=== PATIENT | female | born 1965 ===

== ENCOUNTER 2017-06-23 16:05 | Inpatient (IN) | payer BC ==
[2017-06-23] MEDS ORDERED: Iohexol 240 (50 ml) PO STA (16:29)
[2017-06-23] MEDS ORDERED: Lactated Ringer's 1,000 ML IVB STA (16:31)
[2017-06-23 17:17] LABS: BASO % 0.4 % (0.0-2.0); EOS % 0.5 % (0.0-4.0); HEMATOCRIT 41.2 % (34.0-47.0); LYMPH # 2.1 K/uL (1.0-4.3); LYMPH % 28.5 % (20.0-40.0); MEAN CELL VOLUME 90.3 fL (81.0-99.0); MEAN CORPUSCULAR HEMOGLOBIN 30.5 pg (27.0-31.0); MEAN CORPUSCULAR HGB CONC 33.8 g/dL (33.0-37.0); MEAN PLATELET VOLUME 7.5 fL (7.2-11.7); MONO # 0.4 K/uL (0.0-0.8); MONO % 5.2 % (0.0-10.0); NRBC % 0.1 % (0.0-2.0); RED CELL DISTRIBUTION WIDTH 14.3 % (11.5-14.5); WHITE BLOOD COUNT 7.5 K/uL (4.8-10.8)
[2017-06-23] MEDS ORDERED: Morphine 4 MG/ML VIAL ONE (17:24)
[2017-06-23] MEDS ORDERED: Lactated Ringer's 1,000 ML ONE (17:24)
[2017-06-23 17:29] LABS: INR 1.1
[2017-06-23 17:30] LABS: ALKALINE PHOSPHATASE 78 U/L (38-126); ALT/SGPT 49 U/L (9-52); AST/SGOT 29 U/L (14-36); BILIRUBIN,TOTAL 0.5 mg/dL (0.2-1.3); BLOOD UREA NITROGEN 7 mg/dL (7-17); CALCIUM 9.4 mg/dl (8.6-10.4); CARBON DIOXIDE 35 mmol/L (22-30); CHLORIDE 98 mmol/L (98-107); GFR AFRICAN-AMERICAN > 60; GLUCOSE,RANDOM 106 mg/dL (65-105); POTASSIUM 3.5 mmol/L (3.6-5.2); SODIUM 139 mmol/L (132-148); TOTAL PROTEIN 8.3 g/dL (6.3-8.3)
[2017-06-23] MEDS ORDERED: Iohexol 240 (50 ml) ONE (17:34)
[2017-06-23 17:36] LABS: RBC URINE 5 /hpf (0-3); URINE BACTERIA RARE (<OCC); URINE BILIRUBIN NEGATIVE (NEGATIVE); URINE BLOOD 1+ (NEGATIVE); URINE COLOR Yellow (YELLOW); URINE GLUCOSE (UA) NORMAL (Normal); URINE KETONE NEGATIVE (NEGATIVE); URINE LEUKOCYTE ESTERASE TRACE Leu/uL (Negative); URINE PROTEIN NEGATIVE (NEGATIVE); URINE UROBILINOGEN NORMAL mg/dL (0.2-1.0); WBC URINE 1 /hpf (0-5)
[2017-06-23] MEDS ORDERED: Iodixanol 320 MG/ML 100 ML BOTTLE IV ONE (18:47)
--- NOTE | 2017-06-23 20:19 | C.PDOC ---
Time Seen by Provider: 06/23/17 16:20 Chief Complaint (Nursing): Abdominal Pain History Per: Patient, Family Onset/Duration Of Symptoms: Days (about 1-2 weeks) Current Symptoms Are (Timing): Still Present Severity: Moderate Location Of Pain/Discomfort: LUQ Radiation Of Pain To:: Flank Associated Symptoms: Nausea Alleviating Factors: None Additional History Per: Prior Records Abnormal Vaginal Bleeding: No Past Medical History Reviewed: Historical Data, Nursing Documentation, Vital Signs Vital Signs: Last Vital Signs Temp 97.5 F L 06/23/17 19:48 Pulse 73 06/23/17 19:48 Resp 18 06/23/17 19:48 BP 115/77 06/23/17 19:48 Pulse Ox 100 06/23/17 19:48 - Medical History PMH: Diabetes, Diverticulitis, HTN, Hypothyroidism Surgical History: Appendectomy, Cholecystectomy, Endoscopy Other Surgeries: Hysterectomy Family History: States: Unknown Family Hx - Social History Hx Alcohol Use: No Hx Substance Use: No - Immunization History Hx Tetanus Toxoid Vaccination: No Hx Influenza Vaccination: No Hx Pneumococcal Vaccination: No Review Of Systems Except As Marked, All Systems Reviewed And Found Negative. Constitutional: Negative for: Fever, Weakness Cardiovascular: Negative for: Chest Pain Respiratory: Negative for: Shortness of Breath Gastrointestinal: Positive for: Abdominal Pain. Negative for: Vomiting, Melena , Hematochezia, Hematemesis Genitourinary: Positive for: Hematuria Musculoskeletal: Negative for: Neck Pain, Back Pain Skin: Negative for: Rash Neurological: Negative for: Weakness, Numbness Physical Exam - Physical Exam Appears: Non-toxic, No Acute Distress Skin: Normal Color, Warm, Dry, No Rash Head: Atraumatic, Normacephalic Eye(s): bilateral: PERRL, EOMI Neck: Normal ROM, Supple Cardiovascular: Rhythm Regular Respiratory: Normal Breath Sounds, No Accessory Muscle Use Gastrointestinal/Abdominal: Soft, Tenderness (Left sided) Back: No CVA Tenderness Extremity: Normal ROM Neurological/Psych: Oriented x3, Normal Motor, Normal Sensation ED Course And Treatment - Laboratory Results Result Diagrams: 06/23/17 17:13 06/23/17 17:13 Interpretation Of Abnormal: Microscopic hematuria, otherwise unremarkable. O2 Sat by Pulse Oximetry: 100 Pulse Ox Interpretation: Normal - CT Scan/US CT abd/pelv. Other Rad Studies (CT/US): Read By Radiologist, Radiology Report Reviewed CT/US Interpretation: No acute pathology. Progress - Interventions Interventions:: Observation, Intravenous fluid - Medications Administered Intravenous: Antiemetic, NSAID, Opiate - Data Reviewed Data Reviewed: Lab, Diagnostic imaging, Old records - Patient Status Patient status: Mostly improved - Continuity of Care Discussed patient case with:: Patient, Family-HIPPA compliant, ED Nurse - Patient Plan Patient Plan: Discharge, F/U with PCP, Continue present meds Disposition Counseled Patient/Family Regarding: Studies Performed, Diagnosis, Need For Followup, Rx Given - Disposition Referrals: Ish Stallworth MD [Staff Provider] - Ilia Ivan MD [Staff Provider] - Disposition: HOME/ ROUTINE Disposition Time: 20:21 Condition: IMPROVED Additional Instructions: Drink plenty of fluids. Follow up with your doctor this week. Follow up with a Urologist for further evaluation and treatment. Return to the ER if you develop fever, vomiting, worsening of symptoms or if you have any other concerns. Prescriptions: Naproxen [Naprosyn] 1 tab PO BID PRN #20 tab PRN Reason: Pain oxyCODONE/Acetaminophen [Percocet 5/325 mg Tab] 1 tab PO QID PRN #10 tab PRN Reason: Pain, Severe (8-10) Instructions: Flank Pain (ED) Forms: [email or web address] (Greek) Print Language: [place] - Clinical Impression Clinical Impression: Left flank pain, Microscopic hematuria
[2017-06-23] MEDS ORDERED: Clindamycin 600mg/50ml D5W 600 MG/50 ML VIAL IVPB SCH (22:15)
--- NOTE | 2017-06-23 22:54 | CP.PCM.CON ---
<Bimal Jamesille - Last Filed: 06/23/17 23:01> History of Present Illness - History of Present Illness History of Present Illness: GENERAL SURGERY CONSULT NOTE FOR DR. XAVIER 52yo F with PMHx of recurrent diverticulitis, HTN, DM, hypothyroidism presents to the ED with abdominal pain. Patient states that she had a colonoscopy by Dr. Schwab on 06/04/17 and was told to take Cipro & Flagyl PO for diverticulitis. She was referred to Dr. Xavier's office where she was seen last . Per patient, she was told that she may need surgery. She is currently on day #9 of antibiotics but was having a lot of pain that began Saturday so came to the ED. She states this is her 4th time having diverticulitis. She states that her pain has improved. She denies nausea or vomiting. She has some diarrhea from the antibiotics. 06/04/17: colonoscopy: diverticulosis in entire colon, no bleeding EGD: gastritis PMHx: recurrent diverticulitis (previously seen at [facility] [place]), HTN, DM, hypothyroidism Surgeries: lap nathalie, lap appy, hysterectomy Allergies: tramadol Social history: denies etoh, smoking, or illicit drug use Review of Systems - Review of Systems All systems: reviewed and no additional remarkable complaints except (as per HPI ) Past Patient History - Past Medical History & Family History Past Medical History?: Yes - Past Social History Smoking Status: Never Smoked - CARDIAC Hx Hypertension: Yes - PULMONARY Hx Respiratory Disorders: No - NEUROLOGICAL Hx Neurological Disorder: Yes Hx Syncope: Yes - HEENT Hx HEENT Problems: No - RENAL Hx Chronic Kidney Disease: No - ENDOCRINE/METABOLIC Hx Hypothyroidism: Yes - HEMATOLOGICAL/ONCOLOGICAL Hx Blood Disorders: No - INTEGUMENTARY Hx Dermatological Problems: No - MUSCULOSKELETAL/RHEUMATOLOGICAL Hx Musculoskeletal Disorders: No - GASTROINTESTINAL Hx Diverticulitis: Yes - GENITOURINARY/GYNECOLOGICAL Hx Genitourinary Disorders: No - PSYCHIATRIC Hx Substance Use: No - SURGICAL HISTORY Hx Appendectomy: Yes Hx Cholecystectomy: Yes - ANESTHESIA Hx Anesthesia: Yes Hx Anesthesia Reactions: No Hx Malignant Hyperthermia: No Meds Home Medications: Home Medication List Medication Instructions Recorded Confirmed Type Naproxen [Naprosyn] 1 tab PO BID PRN #20 tab 06/23/17 Rx oxyCODONE/Acetaminophen [Percocet 1 tab PO QID PRN #10 tab 06/23/17 Rx 5/325 mg Tab] Allergies/Adverse Reactions: Allergies Allergy/AdvReac Type Severity Reaction Status Date / Time tramadol Allergy Verified 06/23/17 16:07 - Medications Medications: Current Medications Clindamycin Phosphate (Cleocin) 600 mg in 50 mls @ 100 mls/hr IVPB STAT [place] Physical Exam - Constitutional Appears: Well, Non-toxic, No Acute Distress - Head Exam Head Exam: ATRAUMATIC, NORMAL INSPECTION - Eye Exam Eye Exam: EOMI, Normal appearance - Respiratory Exam Respiratory Exam: NORMAL BREATHING PATTERN. absent: Respiratory Distress - Cardiovascular Exam Cardiovascular Exam: +S1, +S2 - GI/Abdominal Exam GI & Abdominal Exam: Soft, Tenderness (tender in LLQ). absent: Distended, Firm , Guarding, Rebound, Rigid Additional comments: Negative rebound Well healed laparoscopic incision sites and lower midline incision - Neurological Exam Neurological exam: Alert, CN II-XII Intact, Oriented x3 - Psychiatric Exam Psychiatric exam: Normal Affect, Normal Mood - Skin Skin Exam: Dry, Normal Color, Warm Results - Vital Signs Recent Vital Signs: Last Vital Signs Temp 97.7 F 06/23/17 21:00 Pulse 71 06/23/17 21:00 Resp 18 06/23/17 21:00 BP 133/83 06/23/17 21:00 Pulse Ox 99 06/23/17 21:52 - Labs Result Diagrams: 06/23/17 17:13 06/23/17 17:13 Labs: Laboratory Results - last 24 hr 06/23/17 06/23/17 06/23/17 17:13 17:13 17:13 WBC 7.5 RBC 4.57 Hgb 13.9 Hct 41.2 MCV 90.3 MCH 30.5 MCHC 33.8 RDW 14.3 Plt Count 369 MPV 7.5 Neut % (Auto) 65.4 Lymph % (Auto) 28.5 [place] % (Auto) 5.2 Eos % (Auto) 0.5 Baso % (Auto) 0.4 Neut # 4.9 Lymph # 2.1 [place] # 0.4 Eos # 0.0 Baso # 0.0 PT 11.8 INR 1.1 APTT 26 Sodium 139 Potassium 3.5 L Chloride 98 Carbon Dioxide 35 H Anion Gap 9 L BUN 7 Creatinine 0.6 L Est GFR ( Amer) > 60 Est GFR (Non-Af Amer) > 60 Random Glucose 106 H Calcium 9.4 Total Bilirubin 0.5 AST 29 ALT 49 Alkaline Phosphatase 78 Troponin I < 0.0120 Total Protein 8.3 Albumin 4.1 Globulin 4.2 H Albumin/Globulin Ratio 1.0 Lipase 43 Urine Color Urine Clarity Urine pH Ur Specific [place] Urine Protein Urine Glucose (UA) Urine Ketones Urine Blood Urine Nitrate Urine Bilirubin Urine Urobilinogen Ur Leukocyte Esterase Urine WBC (Auto) Urine RBC (Auto) Ur Squamous Epith Cells Urine Bacteria 06/23/17 17:21 WBC RBC Hgb Hct MCV MCH MCHC RDW Plt Count MPV Neut % (Auto) Lymph % (Auto) [place] % (Auto) Eos % (Auto) Baso % (Auto) Neut # Lymph # [place] # Eos # Baso # PT INR APTT Sodium Potassium Chloride Carbon Dioxide Anion Gap BUN Creatinine Est GFR ( Amer) Est GFR (Non-Af Amer) Random Glucose Calcium Total Bilirubin AST ALT Alkaline Phosphatase Troponin I Total Protein Albumin Globulin Albumin/Globulin Ratio Lipase Urine Color Yellow Urine Clarity Clear Urine pH 7.0 Ur Specific [place] 1.006 Urine Protein Negative Urine Glucose (UA) Normal Urine Ketones Negative Urine Blood 1+ H Urine Nitrate Negative Urine Bilirubin Negative Urine Urobilinogen Normal Ur Leukocyte Esterase Trace Urine WBC (Auto) 1 Urine RBC (Auto) 5 H Ur Squamous Epith Cells < 1 Urine Bacteria Rare Assessment & Plan - Assessment and Plan (Free Text) Assessment: 52yo F with PMHx of recurrent diverticulitis, HTN, DM, hypothyroidism presents with abdominal pain - Afebrile, VSS - No leukocytosis - CT: numerous left colonic & sigmoid diverticuli, without acute inflammation - NPO tonight, CLD tomorrow AM - IV fluids - Clindamycin ordered (patient was on Cipro, Flagyl as outpatient) - Morphine, Toradol, Zofran PRN - Protonix - Serial abdominal exams - Discussed plan with Dr. Morenita Jamse PGY-3 <Timothy Xavier - Last Filed: 06/24/17 16:02> Meds - Medications Medications: Current Medications Atenolol (Tenormin) 50 mg PO DAILY [facility] Last Admin: 06/24/17 10:01 Dose: 50 mg Enoxaparin Sodium (Lovenox) 40 mg SC DAILY [facility] Last Admin: 06/24/17 09:57 Dose: 40 mg Erythromycin (Erythromycin) 1,000 mg PO ONCE ONE Stop: 06/25/17 14:01 Erythromycin (Erythromycin) 1,000 mg PO ONCE ONE Stop: 06/25/17 15:01 Erythromycin (Erythromycin) 1,000 mg PO ONCE ONE Stop: 06/25/17 22:01 Hydrochlorothiazide (Microzide) 12.5 mg PO DAILY [facility] Last Admin: 06/24/17 09:58 Dose: 12.5 mg Clindamycin Phosphate (Cleocin In Normal Saline) 600 mg in 50 mls @ 102 mls/hr IVPB Q8H [facility] Last Admin: 06/24/17 14:23 Dose: 102 mls/hr Lactated Ringer's (Lactated Ringer's) 1,000 mls @ 125 mls/hr IV .Q8H [facility] Last Admin: 06/24/17 15:21 Dose: Not Given Piperacillin Sod/Tazobactam (Sod 3.375 gm/ Sodium Chloride) 100 mls @ 200 mls/ hr IVPB Q6H [facility] Last Admin: 06/24/17 15:53 Dose: 200 mls/hr Ketorolac Tromethamine (Toradol) 30 mg IVP Q6 PRN PRN Reason: Pain, Mild (1-3) Levothyroxine Sodium (Synthroid) 50 mcg PO DAILY@0630 [facility] Last Admin: 06/24/17 06:05 Dose: 50 mcg Metformin HCl (Glucophage) 500 mg PO BID [facility] Last Admin: 06/24/17 09:54 Dose: 500 mg Morphine Sulfate (Morphine) 2 mg IVP Q4 PRN PRN Reason: Pain, moderate (4-7) Neomycin Sulfate (Neomycin Tab) 1,000 mg PO ONCE ONE Stop: 06/25/17 14:01 Neomycin Sulfate (Neomycin Tab) 1,000 mg PO ONCE ONE Stop: 06/25/17 15:01 Neomycin Sulfate (Neomycin Tab) 1,000 mg PO ONCE ONE Stop: 06/25/17 22:01 Ondansetron HCl (Zofran Inj) 4 mg IVP Q4 PRN PRN Reason: Nausea/Vomiting Pantoprazole Sodium (Protonix Inj) 40 mg IVP DAILY [facility] Last Admin: 06/24/17 10:00 Dose: 40 mg Pneumococcal Polyvalent Vaccine (Pneumovax 23 Vaccine) 0.5 ml IM .ONCE ONE Stop: 06/25/17 10:01 Polyethylene Glycol/Electrolytes (Golytely) 2,000 ml PO ONCE ONE Stop: 06/24/17 18:01 Results - Vital Signs Recent Vital Signs: Last Vital Signs Temp 98.1 F 06/24/17 08:24 Pulse 64 06/24/17 08:24 Resp 20 06/24/17 08:24 BP 127/76 06/24/17 08:24 Pulse Ox 96 06/24/17 08:24 - Labs Result Diagrams: 06/24/17 07:49 06/24/17 07:49 Labs: Laboratory Results - last 24 hr 06/23/17 06/23/17 06/23/17 17:13 17:13 17:13 WBC 7.5 RBC 4.57 Hgb 13.9 Hct 41.2 MCV 90.3 MCH 30.5 MCHC 33.8 RDW 14.3 Plt Count 369 MPV 7.5 Neut % (Auto) 65.4 Lymph % (Auto) 28.5 [place] % (Auto) 5.2 Eos % (Auto) 0.5 Baso % (Auto) 0.4 Neut # 4.9 Lymph # 2.1 [place] # 0.4 Eos # 0.0 Baso # 0.0 PT 11.8 INR 1.1 APTT 26 Sodium 139 Potassium 3.5 L Chloride 98 Carbon Dioxide 35 H Anion Gap 9 L BUN 7 Creatinine 0.6 L Est GFR ( Amer) > 60 Est GFR (Non-Af Amer) > 60 POC Glucose (mg/dL) Random Glucose 106 H Calcium 9.4 Total Bilirubin 0.5 AST 29 ALT 49 Alkaline Phosphatase 78 Troponin I < 0.0120 Total Protein 8.3 Albumin 4.1 Globulin 4.2 H Albumin/Globulin Ratio 1.0 Lipase 43 Urine Color Urine Clarity Urine pH Ur Specific [place] Urine Protein Urine Glucose (UA) Urine Ketones Urine Blood Urine Nitrate Urine Bilirubin Urine Urobilinogen Ur Leukocyte Esterase Urine WBC (Auto) Urine RBC (Auto) Ur Squamous Epith Cells Urine Bacteria 06/23/17 06/24/17 06/24/17 17:21 07:49 07:49 WBC 6.1 RBC 3.69 L Hgb 11.3 D Hct 33.3 L MCV 90.1 MCH 30.6 MCHC 33.9 RDW 14.4 Plt Count 317 MPV 7.7 Neut % (Auto) 58.8 Lymph % (Auto) 32.1 [place] % (Auto) 6.7 Eos % (Auto) 2.1 Baso % (Auto) 0.3 Neut # 3.6 Lymph # 2.0 [place] # 0.4 Eos # 0.1 Baso # 0.0 PT INR APTT Sodium 138 Potassium 3.6 Chloride 100 Carbon Dioxide 33 H Anion Gap 8 L BUN 8 Creatinine 0.6 L Est GFR ( Amer) > 60 Est GFR (Non-Af Amer) > 60 POC Glucose (mg/dL) Random Glucose 102 Calcium 8.2 L Total Bilirubin AST ALT Alkaline Phosphatase Troponin I Total Protein Albumin Globulin Albumin/Globulin Ratio Lipase Urine Color Yellow Urine Clarity Clear Urine pH 7.0 Ur Specific [place] 1.006 Urine Protein Negative Urine Glucose (UA) Normal Urine Ketones Negative Urine Blood 1+ H Urine Nitrate Negative Urine Bilirubin Negative Urine Urobilinogen Normal Ur Leukocyte Esterase Trace Urine WBC (Auto) 1 Urine RBC (Auto) 5 H Ur Squamous Epith Cells < 1 Urine Bacteria Rare 06/24/17 06/24/17 07:59 11:04 WBC RBC Hgb Hct MCV MCH MCHC RDW Plt Count MPV Neut % (Auto) Lymph % (Auto) [place] % (Auto) Eos % (Auto) Baso % (Auto) Neut # Lymph # [place] # Eos # Baso # PT INR APTT Sodium Potassium Chloride Carbon Dioxide Anion Gap BUN Creatinine Est GFR ( Amer) Est GFR (Non-Af Amer) POC Glucose (mg/dL) 108 115 H Random Glucose Calcium Total Bilirubin AST ALT Alkaline Phosphatase Troponin I Total Protein Albumin Globulin Albumin/Globulin Ratio Lipase Urine Color Urine Clarity Urine pH Ur Specific [place] Urine Protein Urine Glucose (UA) Urine Ketones Urine Blood Urine Nitrate Urine Bilirubin Urine Urobilinogen Ur Leukocyte Esterase Urine WBC (Auto) Urine RBC (Auto) Ur Squamous Epith Cells Urine Bacteria Attending/Attestation - Attestation I have personally seen and examined this patient.: Yes I have fully participated in the care of the patient.: Yes I have reviewed all pertinent clinical information: Yes Notes (Text): Pt was seen and examined at bedside Agree with above note and assessment Pt with Abdominal Pain and Diverticulosis Pt is no antibiotics for Recent diverticulitis LLQ tenderness Labs and radiology reviewed Ass: Recurrent Diverticulitis, 4th attack Plan : IV antibiotics GI consult NPO, IVF Plan d.w pt in detail Risk and benefit explained in detail.
[2017-06-24] MEDS ORDERED: Clindamycin 600mg/50ml NS 600 MG/50 ML BAG IVPB ONE (00:23)
[2017-06-24] MEDS: Clindamycin 600mg/50ml NS 600 MG/50 ML BAG IVPB SCH ×4 (00:23→22:48)
[2017-06-24] MEDS ORDERED: Lactated Ringer's 1,000 ML ONE (00:24)
[2017-06-24] MEDS: Lactated Ringer's 1,000 ML IV SCH ×5 (00:31→22:47)
[2017-06-24] MEDS ORDERED: metroNIDAZOLE IV 500 mg/100 ml 500 MG/100 ML BAG IVPB SCH (03:00)
[2017-06-24] MEDS: Levothyroxine 50 MCG TAB PO SCH (06:05)
--- NOTE | 2017-06-24 07:44 | CP.PCM.CON ---
<Promise Myrick - Last Filed: 06/24/17 10:04> History of Present Illness - History of Present Illness History of Present Illness: GI Fellow PGY4 Consult Note This is a 52yF with pmhx of recurrent diverticulitis, HTN, DM, hypothyroidism presents to the ED with worsening abdominal pain. Pt was on po abx Cipro & Flagyl Day 03/28 for diverticulitis. Patient states that she had a EGD/ colonoscopy by Dr. Schwab on 06/04/17 with diverticulosis and gastritis. She was referred to Dr. Xavier's office where she was seen last . Pt was told that she may need surgery and has a followup appt in July . While antibiotics she was having a lot of pain that began Saturday and progressively worsened associated with nausea and vomiting. At the time of evaluation, pt reported she was feeling a lot better, improved pain on IV Clindamycin . ROS: A 12pt ROS negative except as above PMHx: As stated in HPI PSHx: lap nathalie, lap appy, hysterectomy SHx: denies etoh, smoking, or illicit drug use FHx: denies colon cancer Past Patient History - Past Medical History & Family History Past Medical History?: Yes - Past Social History Smoking Status: Never Smoked - CARDIAC Hx Cardiac Disorders: Yes Hx Hypertension: Yes - PULMONARY Hx Respiratory Disorders: No - NEUROLOGICAL Hx Neurological Disorder: Yes Hx Syncope: Yes - HEENT Hx HEENT Problems: No - RENAL Hx Chronic Kidney Disease: No - ENDOCRINE/METABOLIC Hx Endocrine Disorders: Yes Hx Diabetes Mellitus Type 2: Yes Hx Hypothyroidism: Yes - HEMATOLOGICAL/ONCOLOGICAL Hx Blood Disorders: No - INTEGUMENTARY Hx Dermatological Problems: No - MUSCULOSKELETAL/RHEUMATOLOGICAL Hx Falls: No - GASTROINTESTINAL Hx Gastrointestinal Disorders: Yes Hx Diverticulitis: Yes Hx Gastritis: Yes - GENITOURINARY/GYNECOLOGICAL Hx Genitourinary Disorders: No - PSYCHIATRIC Hx Substance Use: No - SURGICAL HISTORY Hx Surgeries: Yes Hx Appendectomy: Yes Hx Cholecystectomy: Yes Hx Hysterectomy: Yes - ANESTHESIA Hx Anesthesia: Yes Hx Anesthesia Reactions: No Hx Malignant Hyperthermia: No Has any member of the family had a problem w/ anesthesia?: No Meds Home Medications: Home Medication List Medication Instructions Recorded Confirmed Type Naproxen [Naprosyn] 1 tab PO BID PRN #20 tab 06/23/17 Rx oxyCODONE/Acetaminophen [Percocet 1 tab PO QID PRN #10 tab 06/23/17 Rx 5/325 mg Tab] Allergies/Adverse Reactions: Allergies Allergy/AdvReac Type Severity Reaction Status Date / Time tramadol Allergy Verified 06/23/17 16:07 - Medications Medications: Current Medications Atenolol (Tenormin) 50 mg PO DAILY [facility] Enoxaparin Sodium (Lovenox) 40 mg SC DAILY [facility] Hydrochlorothiazide (Microzide) 12.5 mg PO DAILY [facility] Clindamycin Phosphate (Cleocin In Normal Saline) 600 mg in 50 mls @ 102 mls/hr IVPB Q8H [facility] Last Admin: 06/24/17 06:05 Dose: 102 mls/hr Lactated Ringer's (Lactated Ringer's) 1,000 mls @ 125 mls/hr IV .Q8H [facility] Last Admin: 06/24/17 00:31 Dose: 125 mls/hr Metronidazole (Flagyl) 500 mg in 100 mls @ 100 mls/hr IVPB Q12H [facility] Last Admin: 06/24/17 03:28 Dose: 100 mls/hr Ketorolac Tromethamine (Toradol) 30 mg IVP Q6 PRN PRN Reason: Pain, Mild (1-3) Levothyroxine Sodium (Synthroid) 50 mcg PO DAILY@0630 [facility] Last Admin: 06/24/17 06:05 Dose: 50 mcg Metformin HCl (Glucophage) 500 mg PO BID [facility] Morphine Sulfate (Morphine) 2 mg IVP Q4 PRN PRN Reason: Pain, moderate (4-7) Ondansetron HCl (Zofran Inj) 4 mg IVP Q4 PRN PRN Reason: Nausea/Vomiting Pantoprazole Sodium (Protonix Inj) 40 mg IVP DAILY [facility] Pneumococcal Polyvalent Vaccine (Pneumovax 23 Vaccine) 0.5 ml IM .ONCE ONE Stop: 06/25/17 10:01 Physical Exam - Constitutional Appears: Non-toxic, No Acute Distress - Head Exam Head Exam: ATRAUMATIC, NORMAL INSPECTION, NORMOCEPHALIC - Eye Exam Eye Exam: EOMI, Normal appearance, PERRL Pupil Exam: PERRL - ENT Exam ENT Exam: Mucous Membranes Moist, Normal Exam - Neck Exam Neck exam: Positive for: Normal Inspection - Respiratory Exam Respiratory Exam: Clear to Auscultation Bilateral, NORMAL BREATHING PATTERN - Cardiovascular Exam Cardiovascular Exam: REGULAR RHYTHM, RRR - GI/Abdominal Exam GI & Abdominal Exam: Normal Bowel Sounds, Soft. absent: Diminished Bowel Sounds , Distended, Organomegaly, Tenderness - Rectal Exam Rectal Exam: Deferred - Extremities Exam Extremities exam: Positive for: full ROM, normal inspection. Negative for: pedal edema - Back Exam Back exam: NORMAL INSPECTION - Neurological Exam Neurological exam: Alert, Oriented x3 - Psychiatric Exam Psychiatric exam: Normal Affect, Normal Mood - Skin Skin Exam: Dry, Intact, Normal Color, Warm Results - Vital Signs Recent Vital Signs: Last Vital Signs Temp 97.9 F 06/24/17 01:15 Pulse 61 06/24/17 01:15 Resp 18 06/24/17 01:58 BP 107/59 L 06/24/17 01:15 Pulse Ox 96 06/24/17 01:15 - Labs Result Diagrams: 06/24/17 07:49 06/24/17 07:49 Labs: Laboratory Results - last 24 hr 06/23/17 06/23/17 06/23/17 17:13 17:13 17:13 WBC 7.5 RBC 4.57 Hgb 13.9 Hct 41.2 MCV 90.3 MCH 30.5 MCHC 33.8 RDW 14.3 Plt Count 369 MPV 7.5 Neut % (Auto) 65.4 Lymph % (Auto) 28.5 Bates % (Auto) 5.2 Eos % (Auto) 0.5 Baso % (Auto) 0.4 Neut # 4.9 Lymph # 2.1 Bates # 0.4 Eos # 0.0 Baso # 0.0 PT 11.8 INR 1.1 APTT 26 Sodium 139 Potassium 3.5 L Chloride 98 Carbon Dioxide 35 H Anion Gap 9 L BUN 7 Creatinine 0.6 L Est GFR ( Amer) > 60 Est GFR (Non-Af Amer) > 60 Random Glucose 106 H Calcium 9.4 Total Bilirubin 0.5 AST 29 ALT 49 Alkaline Phosphatase 78 Troponin I < 0.0120 Total Protein 8.3 Albumin 4.1 Globulin 4.2 H Albumin/Globulin Ratio 1.0 Lipase 43 Urine Color Urine Clarity Urine pH Ur Specific Darling Urine Protein Urine Glucose (UA) Urine Ketones Urine Blood Urine Nitrate Urine Bilirubin Urine Urobilinogen Ur Leukocyte Esterase Urine WBC (Auto) Urine RBC (Auto) Ur Squamous Epith Cells Urine Bacteria 06/23/17 17:21 WBC RBC Hgb Hct MCV MCH MCHC RDW Plt Count MPV Neut % (Auto) Lymph % (Auto) Bates % (Auto) Eos % (Auto) Baso % (Auto) Neut # Lymph # Bates # Eos # Baso # PT INR APTT Sodium Potassium Chloride Carbon Dioxide Anion Gap BUN Creatinine Est GFR ( Amer) Est GFR (Non-Af Amer) Random Glucose Calcium Total Bilirubin AST ALT Alkaline Phosphatase Troponin I Total Protein Albumin Globulin Albumin/Globulin Ratio Lipase Urine Color Yellow Urine Clarity Clear Urine pH 7.0 Ur Specific Darling 1.006 Urine Protein Negative Urine Glucose (UA) Normal Urine Ketones Negative Urine Blood 1+ H Urine Nitrate Negative Urine Bilirubin Negative Urine Urobilinogen Normal Ur Leukocyte Esterase Trace Urine WBC (Auto) 1 Urine RBC (Auto) 5 H Ur Squamous Epith Cells < 1 Urine Bacteria Rare Assessment & Plan - Assessment and Plan (Free Text) Assessment: This is a 52yF presenting with abdominal pain. 1. Diverticulitis, recurrent Plan: -Continue supportive care with IVF hydration, pain control, anti-emetics -Clinically improving, continue IV abx -Advance diet as tolerated per surgical recommendations -Recent colonoscopy with diverticulosis in entire colon, CT scan negative for abscess or perforation -Pt will be surgery outpt defer to surgery following -Will continue to follow closely <Fatoumata Schwba MD - Last Filed: 06/24/17 11:31> Meds - Medications Medications: Current Medications Atenolol (Tenormin) 50 mg PO DAILY [facility] Last Admin: 06/24/17 10:01 Dose: 50 mg Enoxaparin Sodium (Lovenox) 40 mg SC DAILY [facility] Last Admin: 06/24/17 09:57 Dose: 40 mg Hydrochlorothiazide (Microzide) 12.5 mg PO DAILY [facility] Last Admin: 06/24/17 09:58 Dose: 12.5 mg Clindamycin Phosphate (Cleocin In Normal Saline) 600 mg in 50 mls @ 102 mls/hr IVPB Q8H [facility] Last Admin: 06/24/17 06:05 Dose: 102 mls/hr Lactated Ringer's (Lactated Ringer's) 1,000 mls @ 125 mls/hr IV .Q8H [facility] Last Admin: 06/24/17 09:56 Dose: 125 mls/hr Piperacillin Sod/Tazobactam (Sod 3.375 gm/ Sodium Chloride) 100 mls @ 200 mls/ hr IVPB Q6H [facility] Ketorolac Tromethamine (Toradol) 30 mg IVP Q6 PRN PRN Reason: Pain, Mild (1-3) Levothyroxine Sodium (Synthroid) 50 mcg PO DAILY@0630 [facility] Last Admin: 06/24/17 06:05 Dose: 50 mcg Metformin HCl (Glucophage) 500 mg PO BID [facility] Last Admin: 06/24/17 09:54 Dose: 500 mg Morphine Sulfate (Morphine) 2 mg IVP Q4 PRN PRN Reason: Pain, moderate (4-7) Ondansetron HCl (Zofran Inj) 4 mg IVP Q4 PRN PRN Reason: Nausea/Vomiting Pantoprazole Sodium (Protonix Inj) 40 mg IVP DAILY [facility] Last Admin: 06/24/17 10:00 Dose: 40 mg Pneumococcal Polyvalent Vaccine (Pneumovax 23 Vaccine) 0.5 ml IM .ONCE ONE Stop: 06/25/17 10:01 Results - Vital Signs Recent Vital Signs: Last Vital Signs Temp 98.1 F 06/24/17 08:24 Pulse 64 06/24/17 08:24 Resp 20 06/24/17 08:24 BP 127/76 06/24/17 08:24 Pulse Ox 96 06/24/17 08:24 - Labs Result Diagrams: 06/24/17 07:49 06/24/17 07:49 Labs: Laboratory Results - last 24 hr 06/23/17 06/23/17 06/23/17 17:13 17:13 17:13 WBC 7.5 RBC 4.57 Hgb 13.9 Hct 41.2 MCV 90.3 MCH 30.5 MCHC 33.8 RDW 14.3 Plt Count 369 MPV 7.5 Neut % (Auto) 65.4 Lymph % (Auto) 28.5 Bates % (Auto) 5.2 Eos % (Auto) 0.5 Baso % (Auto) 0.4 Neut # 4.9 Lymph # 2.1 Bates # 0.4 Eos # 0.0 Baso # 0.0 PT 11.8 INR 1.1 APTT 26 Sodium 139 Potassium 3.5 L Chloride 98 Carbon Dioxide 35 H Anion Gap 9 L BUN 7 Creatinine 0.6 L Est GFR ( Amer) > 60 Est GFR (Non-Af Amer) > 60 POC Glucose (mg/dL) Random Glucose 106 H Calcium 9.4 Total Bilirubin 0.5 AST 29 ALT 49 Alkaline Phosphatase 78 Troponin I < 0.0120 Total Protein 8.3 Albumin 4.1 Globulin 4.2 H Albumin/Globulin Ratio 1.0 Lipase 43 Urine Color Urine Clarity Urine pH Ur Specific Darling Urine Protein Urine Glucose (UA) Urine Ketones Urine Blood Urine Nitrate Urine Bilirubin Urine Urobilinogen Ur Leukocyte Esterase Urine WBC (Auto) Urine RBC (Auto) Ur Squamous Epith Cells Urine Bacteria 06/23/17 06/24/17 06/24/17 17:21 07:49 07:49 WBC 6.1 RBC 3.69 L Hgb 11.3 D Hct 33.3 L MCV 90.1 MCH 30.6 MCHC 33.9 RDW 14.4 Plt Count 317 MPV 7.7 Neut % (Auto) 58.8 Lymph % (Auto) 32.1 Bates % (Auto) 6.7 Eos % (Auto) 2.1 Baso % (Auto) 0.3 Neut # 3.6 Lymph # 2.0 Bates # 0.4 Eos # 0.1 Baso # 0.0 PT INR APTT Sodium 138 Potassium 3.6 Chloride 100 Carbon Dioxide 33 H Anion Gap 8 L BUN 8 Creatinine 0.6 L Est GFR ( Amer) > 60 Est GFR (Non-Af Amer) > 60 POC Glucose (mg/dL) Random Glucose 102 Calcium 8.2 L Total Bilirubin AST ALT Alkaline Phosphatase Troponin I Total Protein Albumin Globulin Albumin/Globulin Ratio Lipase Urine Color Yellow Urine Clarity Clear Urine pH 7.0 Ur Specific Darling 1.006 Urine Protein Negative Urine Glucose (UA) Normal Urine Ketones Negative Urine Blood 1+ H Urine Nitrate Negative Urine Bilirubin Negative Urine Urobilinogen Normal Ur Leukocyte Esterase Trace Urine WBC (Auto) 1 Urine RBC (Auto) 5 H Ur Squamous Epith Cells < 1 Urine Bacteria Rare 06/24/17 07:59 WBC RBC Hgb Hct MCV MCH MCHC RDW Plt Count MPV Neut % (Auto) Lymph % (Auto) Bates % (Auto) Eos % (Auto) Baso % (Auto) Neut # Lymph # Bates # Eos # Baso # PT INR APTT Sodium Potassium Chloride Carbon Dioxide Anion Gap BUN Creatinine Est GFR ( Amer) Est GFR (Non-Af Amer) POC Glucose (mg/dL) 108 Random Glucose Calcium Total Bilirubin AST ALT Alkaline Phosphatase Troponin I Total Protein Albumin Globulin Albumin/Globulin Ratio Lipase Urine Color Urine Clarity Urine pH Ur Specific Darling Urine Protein Urine Glucose (UA) Urine Ketones Urine Blood Urine Nitrate Urine Bilirubin Urine Urobilinogen Ur Leukocyte Esterase Urine WBC (Auto) Urine RBC (Auto) Ur Squamous Epith Cells Urine Bacteria Assessment & Plan - Assessment and Plan (Free Text) Assessment: This is a 52 yr old F with recurrent diverticulitis fourth episode in 1.5 years. She presented as outpatient with LLQ pain on 06/13 and was given 14 day course of ciprofloxacin and flagyl. she has completed 11 day course. Her LLQ pain worsened yesterday and hence she presented to the ER. Denies nausea, vomiting or constipation. CT with contrast shows no abscess or perforation. Physical exam with no guarding but tenderness in LLQ on deep palpation. Continue IV antibiotics. NPO. Surgical consult with Dr Xavier- she was seen by him last week in outpatient setting. Will follow closely Attending/Attestation - Attestation I have personally seen and examined this patient.: Yes I have fully participated in the care of the patient.: Yes I have reviewed all pertinent clinical information: Yes
[2017-06-24 08:15] LABS: BASO % 0.3 % (0.0-2.0); EOS # 0.1 K/uL (0.0-0.7); EOS % 2.1 % (0.0-4.0); HEMATOCRIT 33.3 % (34.0-47.0); LYMPH % 32.1 % (20.0-40.0); MEAN CELL VOLUME 90.1 fL (81.0-99.0); MEAN CORPUSCULAR HEMOGLOBIN 30.6 pg (27.0-31.0); MEAN CORPUSCULAR HGB CONC 33.9 g/dL (33.0-37.0); MEAN PLATELET VOLUME 7.7 fL (7.2-11.7); MONO # 0.4 K/uL (0.0-0.8); MONO % 6.7 % (0.0-10.0); RED CELL DISTRIBUTION WIDTH 14.4 % (11.5-14.5); WHITE BLOOD COUNT 6.1 K/uL (4.8-10.8)
--- NOTE | 2017-06-24 08:26 | CT ---
PROCEDURE: CT Abdomen and Pelvis with contrast HISTORY: Left-sided abdominal pain COMPARISON: None. TECHNIQUE: Multiple contiguous axial images were performed through the abdomen and pelvis with intravenous contrast. Subsequently, sagittal and coronal reformatted images were obtained. Radiation dose: Total exam DLP = 968 mGy-cm. This CT exam was performed using one or more of the following dose reduction techniques: Automated exposure control, adjustment of the mA and/or kV according to patient size, and/or use of iterative reconstruction technique. FINDINGS: LOWER THORAX: Unremarkable. LIVER: Mild fatty infiltration of the liver. Subtle 1 centimeter rounded enhancing foci in the inferior right hepatic lobe on series 3, image 65 of uncertain clinical etiology. Correlation with a multiphasic CT or MR would be helpful to better evaluate this region if clinically indicated. GALLBLADDER AND BILE DUCTS: Previous cholecystectomy. CBD is mildly prominent. PANCREAS: Mild fatty atrophy of the pancreas. SPLEEN: Unremarkable. ADRENALS: Unremarkable. No mass. KIDNEYS AND URETERS: Punctate hypodensity in the midpole of the right kidney, too small to adequately characterize. VASCULATURE: Unremarkable. No aortic aneurysm. BOWEL: Numerous left colonic and sigmoid diverticuli without evidence of acute inflammation. APPENDIX: Normal appendix. PERITONEUM: Unremarkable. No free fluid. No free air. LYMPH NODES: Unremarkable. No enlarged lymph nodes. BLADDER: Unremarkable. REPRODUCTIVE: Suggestion of a prior hysterectomy. Clinical correlation. BONES: No acute fracture. OTHER FINDINGS: None. IMPRESSION: 1. Negative acute. 2. Mild fatty infiltration of the liver. 3. Subtle 1 centimeter rounded enhancing foci in the inferior right hepatic lobe on series 3, image 65 of uncertain clinical etiology. Correlation with a multiphasic CT or MR would be helpful to better evaluate this region if clinically indicated. 4. Prior cholecystectomy and possible prior hysterectomy. Clinical correlation. 5. Numerous left colonic and sigmoid diverticuli without acute inflammation. These findings were preliminarily reported at 7:36 p.m. on 06/23/[address] Jacquie Luo from [facility].
[2017-06-24 09:03] LABS: BLOOD UREA NITROGEN 8 mg/dL (7-17); CALCIUM 8.2 mg/dl (8.6-10.4); CARBON DIOXIDE 33 mmol/L (22-30); CHLORIDE 100 mmol/L (98-107); GFR AFRICAN-AMERICAN > 60; GLUCOSE,RANDOM 102 mg/dL (65-105); POTASSIUM 3.6 mmol/L (3.6-5.2); SODIUM 138 mmol/L (132-148)
[2017-06-24] MEDS: Enoxaparin 40 mg Syringe SC SCH (09:57)
[2017-06-24] MEDS ORDERED: Home Med 1 UNIT (Omeprazole [Omeprazole] 40 MG) PO SCH (10:00)
[2017-06-24] MEDS: Piperacillin/Tazobact 3.375 GM in Sodium Chloride 100 ML IVPB SCH ×3 (10:59→21:08)
--- NOTE | 2017-06-24 11:05 | CP.PCM.PN ---
Subjective - Date & Time of Evaluation Date of Evaluation: 06/24/17 Time of Evaluation: 10:51 - Subjective Subjective: PGY-2 note for 's service: Pt seen and examined at bedside. Nursing reports no acute events overnight. Patient reports abdominal pain is improving since starting the IV antibiotics at the hospital. She states she has been passing gas, feels hungry, and is ready to try liquid diet. She denies subjective fever, chills, nausea, vomiting , SOB or chest pain. Objective - Vital Signs/Intake and Output Vital Signs (last 24 hours): Temp Pulse Resp BP Pulse Ox 98.1 F 64 20 127/76 96 06/24/17 08:24 06/24/17 08:24 06/24/17 08:24 06/24/17 08:24 06/24/17 08:24 Intake and Output: 06/24/17 06/24/17 06:59 18:59 Intake Total 1000 Balance 1000 - Medications Medications: Current Medications Atenolol (Tenormin) 50 mg PO DAILY [facility] Last Admin: 06/24/17 10:01 Dose: 50 mg Enoxaparin Sodium (Lovenox) 40 mg SC DAILY [facility] Last Admin: 06/24/17 09:57 Dose: 40 mg Hydrochlorothiazide (Microzide) 12.5 mg PO DAILY [facility] Last Admin: 06/24/17 09:58 Dose: 12.5 mg Clindamycin Phosphate (Cleocin In Normal Saline) 600 mg in 50 mls @ 102 mls/hr IVPB Q8H [facility] Last Admin: 06/24/17 06:05 Dose: 102 mls/hr Lactated Ringer's (Lactated Ringer's) 1,000 mls @ 125 mls/hr IV .Q8H [facility] Last Admin: 06/24/17 09:56 Dose: 125 mls/hr Piperacillin Sod/Tazobactam (Sod 3.375 gm/ Sodium Chloride) 100 mls @ 200 mls/ hr IVPB Q6H [facility] Ketorolac Tromethamine (Toradol) 30 mg IVP Q6 PRN PRN Reason: Pain, Mild (1-3) Levothyroxine Sodium (Synthroid) 50 mcg PO DAILY@0630 [facility] Last Admin: 06/24/17 06:05 Dose: 50 mcg Metformin HCl (Glucophage) 500 mg PO BID [facility] Last Admin: 06/24/17 09:54 Dose: 500 mg Morphine Sulfate (Morphine) 2 mg IVP Q4 PRN PRN Reason: Pain, moderate (4-7) Ondansetron HCl (Zofran Inj) 4 mg IVP Q4 PRN PRN Reason: Nausea/Vomiting Pantoprazole Sodium (Protonix Inj) 40 mg IVP DAILY [facility] Last Admin: 06/24/17 10:00 Dose: 40 mg Pneumococcal Polyvalent Vaccine (Pneumovax 23 Vaccine) 0.5 ml IM .ONCE ONE Stop: 06/25/17 10:01 - Labs Labs: 06/24/17 07:49 06/24/17 07:49 PT 11.8 SECONDS (9.7-12.2) 06/23/17 17:13 INR 1.1 06/23/17 17:13 APTT 26 SECONDS (21-34) 06/23/17 17:13 - Constitutional Appears: Non-toxic, No Acute Distress - Head Exam Head Exam: ATRAUMATIC, NORMAL INSPECTION, NORMOCEPHALIC - Eye Exam Eye Exam: EOMI, Normal appearance Pupil Exam: PERRL - ENT Exam ENT Exam: Mucous Membranes Moist, Normal Exam - Respiratory Exam Respiratory Exam: Clear to Ausculation Bilateral, NORMAL BREATHING PATTERN - Cardiovascular Exam Cardiovascular Exam: REGULAR RHYTHM, +S1, +S2 - GI/Abdominal Exam GI & Abdominal Exam: Soft, Tenderness (mild LLQ), Normal Bowel Sounds. absent: Distended, Rebound - Extremities Exam Extremities Exam: Normal Inspection. absent: Pedal Edema - Back Exam Back Exam: absent: CVA tenderness (L), CVA tenderness (R) - Neurological Exam Neurological Exam: Alert, Awake, Oriented x3 - Psychiatric Exam Psychiatric exam: Normal Affect, Normal Mood - Skin Skin Exam: Normal Color, Warm Assessment and Plan - Assessment and Plan (Free Text) Assessment: Acute Diverticulitis, recurrent Admit to med/surg Three previous episodes Afebrile, WBC WNL Liquid diet this AM CT A/P (06/23/17): numerous left colonic and sigmoid diverticuli, w/o acute inflammation Taking Cipro/Flagyl as OPDX (Total of 9 days before coming to hospital) Dr. Schwab, GI retail sales consultant - EGD/Colonoscopy as OPDX (06/04/17): Gastritis/Diverticulosis in entire colon Dr. Xavier, Gen surgery - Saw as opdx, told pt may need surgery - Pt considering surgical option, will discuss with family - if pt consents -> surgery 06/26, bowel prep 06/25 Clindamycin 600mg IV Q8H (Day 2) Zosyn 3.375 gm IV Q6H (day 1) Zofran 4mg IV q4H PRN Toradol 30mg IV Q6H PRN, mild pain Morphine 2mg IV Q4H PRN, moderate pain LR @ 125cc/hr HTN Well-controlled Microzide 12.5mg PO daily Atenolol 50mg PO Daily T2DM Accuchecks Hypoglycemia protocl Metformin 500mg PO BID -f/u A1C, lipid panel Hypothyroidism Synthroid 50 mcg PO QAM - f/u TSH, free T4 Hematuria UA: 1+ blood, RBC 5 - will repeat UA Prophylaxis SCDs Lovenox 40mg SC daily Protonix 40mg IV Daily Chalo Dodge PGY-2 All medical management per
--- NOTE | 2017-06-24 11:07 | CP.PCM.PN ---
<Franck Niño Carlos - Last Filed: 06/24/17 11:05> Subjective - Date & Time of Evaluation Date of Evaluation: 06/24/17 Time of Evaluation: 06:45 - Subjective Subjective: Sx: Albert Pt S&E. KAREN. Reports pain significantly improved. Denies N/V, F/C. Passing flatus. D/W pt options for surgery on this admission vs outpatient follow. Pt would like to discuss w/ her . Will return this afternoon for family meeting. Objective - Vital Signs/Intake and Output Vital Signs (last 24 hours): Temp Pulse Resp BP Pulse Ox 98.1 F 64 20 127/76 96 06/24/17 08:24 06/24/17 08:24 06/24/17 08:24 06/24/17 08:24 06/24/17 08:24 Intake and Output: 06/24/17 06/24/17 06:59 18:59 Intake Total 1000 Balance 1000 - Medications Medications: Current Medications Atenolol (Tenormin) 50 mg PO DAILY [facility] Last Admin: 06/24/17 10:01 Dose: 50 mg Enoxaparin Sodium (Lovenox) 40 mg SC DAILY [facility] Last Admin: 06/24/17 09:57 Dose: 40 mg Hydrochlorothiazide (Microzide) 12.5 mg PO DAILY [facility] Last Admin: 06/24/17 09:58 Dose: 12.5 mg Clindamycin Phosphate (Cleocin In Normal Saline) 600 mg in 50 mls @ 102 mls/hr IVPB Q8H [facility] Last Admin: 06/24/17 06:05 Dose: 102 mls/hr Lactated Ringer's (Lactated Ringer's) 1,000 mls @ 125 mls/hr IV .Q8H [facility] Last Admin: 06/24/17 09:56 Dose: 125 mls/hr Piperacillin Sod/Tazobactam (Sod 3.375 gm/ Sodium Chloride) 100 mls @ 200 mls/ hr IVPB Q6H [facility] Last Admin: 06/24/17 10:59 Dose: 200 mls/hr Ketorolac Tromethamine (Toradol) 30 mg IVP Q6 PRN PRN Reason: Pain, Mild (1-3) Levothyroxine Sodium (Synthroid) 50 mcg PO DAILY@0630 [facility] Last Admin: 06/24/17 06:05 Dose: 50 mcg Metformin HCl (Glucophage) 500 mg PO BID [facility] Last Admin: 06/24/17 09:54 Dose: 500 mg Morphine Sulfate (Morphine) 2 mg IVP Q4 PRN PRN Reason: Pain, moderate (4-7) Ondansetron HCl (Zofran Inj) 4 mg IVP Q4 PRN PRN Reason: Nausea/Vomiting Pantoprazole Sodium (Protonix Inj) 40 mg IVP DAILY [facility] Last Admin: 06/24/17 10:00 Dose: 40 mg Pneumococcal Polyvalent Vaccine (Pneumovax 23 Vaccine) 0.5 ml IM .ONCE ONE Stop: 06/25/17 10:01 - Labs Labs: 06/24/17 07:49 06/24/17 07:49 PT 11.8 SECONDS (9.7-12.2) 06/23/17 17:13 INR 1.1 06/23/17 17:13 APTT 26 SECONDS (21-34) 06/23/17 17:13 - Constitutional Appears: Non-toxic, No Acute Distress - Head Exam Head Exam: NORMAL INSPECTION - Eye Exam Eye Exam: Normal appearance - ENT Exam ENT Exam: Mucous Membranes Moist - Respiratory Exam Respiratory Exam: absent: Accessory Muscle Use, Respiratory Distress - Cardiovascular Exam Cardiovascular Exam: REGULAR RHYTHM - GI/Abdominal Exam GI & Abdominal Exam: Soft, Tenderness (LLQ). absent: Distended, Firm, Guarding , Rigid, Hernia, Rebound - Neurological Exam Neurological Exam: Alert, Awake, Oriented x3 - Psychiatric Exam Psychiatric exam: Normal Affect, Normal Mood - Skin Skin Exam: Normal Color, Warm Assessment and Plan - Assessment and Plan (Free Text) Assessment: 52F with recurrent diverticulitis; has been on PO abx for > 1 week pain not resolving Plan: cont IV abx cont CLD will d/w pt and her options/timing of surgery -if pt wants surgery this admission will be saturday with bowel prep on saturday further recs pending conversation d/w Dr Morenita Niño, PGY3 <Timothy Xavier - Last Filed: 06/24/17 16:11> Objective - Vital Signs/Intake and Output Vital Signs (last 24 hours): Temp Pulse Resp BP Pulse Ox 98.1 F 64 20 127/76 96 06/24/17 08:24 06/24/17 08:24 06/24/17 08:24 06/24/17 08:24 06/24/17 08:24 Intake and Output: 06/24/17 06/24/17 06:59 18:59 Intake Total 1000 1630 Balance 1000 1630 - Medications Medications: Current Medications Atenolol (Tenormin) 50 mg PO DAILY [facility] Last Admin: 06/24/17 10:01 Dose: 50 mg Enoxaparin Sodium (Lovenox) 40 mg SC DAILY [facility] Last Admin: 06/24/17 09:57 Dose: 40 mg Erythromycin (Erythromycin) 1,000 mg PO ONCE ONE Stop: 06/25/17 14:01 Erythromycin (Erythromycin) 1,000 mg PO ONCE ONE Stop: 06/25/17 15:01 Erythromycin (Erythromycin) 1,000 mg PO ONCE ONE Stop: 06/25/17 22:01 Hydrochlorothiazide (Microzide) 12.5 mg PO DAILY [facility] Last Admin: 06/24/17 09:58 Dose: 12.5 mg Clindamycin Phosphate (Cleocin In Normal Saline) 600 mg in 50 mls @ 102 mls/hr IVPB Q8H [facility] Last Admin: 06/24/17 14:23 Dose: 102 mls/hr Lactated Ringer's (Lactated Ringer's) 1,000 mls @ 125 mls/hr IV .Q8H [facility] Last Admin: 06/24/17 15:21 Dose: Not Given Piperacillin Sod/Tazobactam (Sod 3.375 gm/ Sodium Chloride) 100 mls @ 200 mls/ hr IVPB Q6H [facility] Last Admin: 06/24/17 15:53 Dose: 200 mls/hr Ketorolac Tromethamine (Toradol) 30 mg IVP Q6 PRN PRN Reason: Pain, Mild (1-3) Levothyroxine Sodium (Synthroid) 50 mcg PO DAILY@0630 [facility] Last Admin: 06/24/17 06:05 Dose: 50 mcg Metformin HCl (Glucophage) 500 mg PO BID [facility] Last Admin: 06/24/17 09:54 Dose: 500 mg Morphine Sulfate (Morphine) 2 mg IVP Q4 PRN PRN Reason: Pain, moderate (4-7) Neomycin Sulfate (Neomycin Tab) 1,000 mg PO ONCE ONE Stop: 06/25/17 14:01 Neomycin Sulfate (Neomycin Tab) 1,000 mg PO ONCE ONE Stop: 06/25/17 15:01 Neomycin Sulfate (Neomycin Tab) 1,000 mg PO ONCE ONE Stop: 06/25/17 22:01 Ondansetron HCl (Zofran Inj) 4 mg IVP Q4 PRN PRN Reason: Nausea/Vomiting Pantoprazole Sodium (Protonix Inj) 40 mg IVP DAILY [facility] Last Admin: 06/24/17 10:00 Dose: 40 mg Pneumococcal Polyvalent Vaccine (Pneumovax 23 Vaccine) 0.5 ml IM .ONCE ONE Stop: 06/25/17 10:01 Polyethylene Glycol/Electrolytes (Golytely) 2,000 ml PO ONCE ONE Stop: 06/24/17 18:01 - Labs Labs: 06/24/17 07:49 06/24/17 07:49 PT 11.8 SECONDS (9.7-12.2) 06/23/17 17:13 INR 1.1 06/23/17 17:13 APTT 26 SECONDS (21-34) 06/23/17 17:13 Attending/Attestation - Attestation I have personally seen and examined this patient.: Yes I have fully participated in the care of the patient.: Yes I have reviewed all pertinent clinical information, including history, physical exam and plan: Yes Notes (Text): Pt was seen and examined at bedside Agree with above note and assessment Pt is improving clinically Less abdominal pain Mild abdominal tenderness Plan : Lap Left hemicolectomy possible Open on saturday Consent NPO, IVF Bowel prep Preop antibiotics IV antibiotics Plan d.w pt in detail Risk and benefit explained in detail.
[2017-06-24] MEDS ORDERED: Peg-Electrolyte Oral Soln 4L (Golytely) PO ONE ×2 (15:03→18:00)
--- NOTE | 2017-06-24 18:59 | CP.PCM.HP ---
Past Patient History - Past Medical History & Family History Past Medical History?: Yes - Past Social History Smoking Status: Never Smoked - CARDIAC Hx Cardiac Disorders: Yes Hx Hypertension: Yes - PULMONARY Hx Respiratory Disorders: No - NEUROLOGICAL Hx Neurological Disorder: Yes Hx Syncope: Yes - HEENT Hx HEENT Problems: No - RENAL Hx Chronic Kidney Disease: No - ENDOCRINE/METABOLIC Hx Endocrine Disorders: Yes Hx Diabetes Mellitus Type 2: Yes Hx Hypothyroidism: Yes - HEMATOLOGICAL/ONCOLOGICAL Hx Blood Disorders: No - INTEGUMENTARY Hx Dermatological Problems: No - MUSCULOSKELETAL/RHEUMATOLOGICAL Hx Falls: No - GASTROINTESTINAL Hx Gastrointestinal Disorders: Yes Hx Diverticulitis: Yes Hx Gastritis: Yes - GENITOURINARY/GYNECOLOGICAL Hx Genitourinary Disorders: No - PSYCHIATRIC Hx Substance Use: No - SURGICAL HISTORY Hx Surgeries: Yes Hx Appendectomy: Yes Hx Cholecystectomy: Yes Hx Hysterectomy: Yes - ANESTHESIA Hx Anesthesia: Yes Hx Anesthesia Reactions: No Hx Malignant Hyperthermia: No Has any member of the family had a problem w/ anesthesia?: No Meds Home Medications: Home Medication List Medication Instructions Recorded Confirmed Type Naproxen [Naprosyn] 1 tab PO BID PRN #20 tab 06/23/17 Rx oxyCODONE/Acetaminophen [Percocet 1 tab PO QID PRN #10 tab 06/23/17 Rx 5/325 mg Tab] Allergies/Adverse Reactions: Allergies Allergy/AdvReac Type Severity Reaction Status Date / Time tramadol Allergy Verified 06/23/17 16:07 Physical Exam - Constitutional Appears: Well - Head Exam Head Exam: ATRAUMATIC, NORMAL INSPECTION, NORMOCEPHALIC - Eye Exam Eye Exam: EOMI, Normal appearance, PERRL Pupil Exam: NORMAL ACCOMODATION, PERRL - ENT Exam ENT Exam: Mucous Membranes Moist, Normal Exam - Neck Exam Neck exam: Positive for: Normal Inspection - Respiratory Exam Respiratory Exam: Decreased Breath Sounds - Cardiovascular Exam Cardiovascular Exam: REGULAR RHYTHM, +S1, +S2 - GI/Abdominal Exam GI & Abdominal Exam: Diminished Bowel Sounds, Soft - Rectal Exam Rectal Exam: Deferred Results - Vital Signs Recent Vital Signs: Last Vital Signs Temp 98.6 F 06/24/17 15:00 Pulse 66 06/24/17 15:00 Resp 20 06/24/17 15:00 BP 132/82 06/24/17 15:00 Pulse Ox 95 06/24/17 15:00 - Labs Result Diagrams: 06/24/17 07:49 06/24/17 07:49 Labs: Laboratory Results - last 24 hr 06/24/17 06/24/17 06/24/17 07:49 07:49 07:59 WBC 6.1 RBC 3.69 L Hgb 11.3 D Hct 33.3 L MCV 90.1 MCH 30.6 MCHC 33.9 RDW 14.4 Plt Count 317 MPV 7.7 Neut % (Auto) 58.8 Lymph % (Auto) 32.1 Green % (Auto) 6.7 Eos % (Auto) 2.1 Baso % (Auto) 0.3 Neut # 3.6 Lymph # 2.0 Green # 0.4 Eos # 0.1 Baso # 0.0 Sodium 138 Potassium 3.6 Chloride 100 Carbon Dioxide 33 H Anion Gap 8 L BUN 8 Creatinine 0.6 L Est GFR ( Amer) > 60 Est GFR (Non-Af Amer) > 60 POC Glucose (mg/dL) 108 Random Glucose 102 Calcium 8.2 L 06/24/17 06/24/17 11:04 16:02 WBC RBC Hgb Hct MCV MCH MCHC RDW Plt Count MPV Neut % (Auto) Lymph % (Auto) Green % (Auto) Eos % (Auto) Baso % (Auto) Neut # Lymph # Green # Eos # Baso # Sodium Potassium Chloride Carbon Dioxide Anion Gap BUN Creatinine Est GFR ( Amer) Est GFR (Non-Af Amer) POC Glucose (mg/dL) 115 H 116 H Random Glucose Calcium
--- NOTE | 2017-06-24 19:19 | CARD ---
APPROVED REPORT EKG Measurement Heart [id number] SD [id number] <Conclusion> Normal sinus rhythm Voltage criteria for left ventricular hypertrophy T wave abnormality, consider anterior ischemia Abnormal ECG
[2017-06-25] MEDS: Piperacillin/Tazobact 3.375 GM in Sodium Chloride 100 ML IVPB SCH ×4 (03:45→21:34)
[2017-06-25] MEDS: Levothyroxine 50 MCG TAB PO SCH (05:50)
[2017-06-25] MEDS: Clindamycin 600mg/50ml NS 600 MG/50 ML BAG IVPB SCH ×3 (06:00→23:30)
--- NOTE | 2017-06-25 07:05 | CP.PCM.PN ---
<Sridhar Scott - Last Filed: 06/25/17 08:55> Subjective - Date & Time of Evaluation Date of Evaluation: 06/25/17 Time of Evaluation: 06:15 - Subjective Subjective: Sridhar Scott D.O. PGY-2, GI Progress Note 52 year old female with A PMH of recurrent diverticulitis, HTN, DM, and hypothyroidism who presented with worsening abdominal pain. Patient was seen and examined at bedside. Patient states that she had no issues overnight and that her symptoms are more mild at this time. Patient has taken her prep for surgery tomorrow. Otherwise no acute overnight events. Objective - Vital Signs/Intake and Output Vital Signs (last 24 hours): Temp Pulse Resp BP Pulse Ox 98.1 F 66 20 134/77 96 06/25/17 00:00 06/25/17 00:00 06/25/17 00:00 06/25/17 00:00 06/25/17 00:00 Intake and Output: 06/25/17 06/25/17 06:59 18:59 Intake Total 1900 Balance 1900 - Medications Medications: Current Medications Atenolol (Tenormin) 50 mg PO DAILY [facility] Last Admin: 06/24/17 10:01 Dose: 50 mg Enoxaparin Sodium (Lovenox) 40 mg SC DAILY [facility] Last Admin: 06/24/17 09:57 Dose: 40 mg Erythromycin (Erythromycin) 1,000 mg PO ONCE ONE Stop: 06/25/17 14:01 Erythromycin (Erythromycin) 1,000 mg PO ONCE ONE Stop: 06/25/17 15:01 Erythromycin (Erythromycin) 1,000 mg PO ONCE ONE Stop: 06/25/17 22:01 Hydrochlorothiazide (Microzide) 12.5 mg PO DAILY [facility] Last Admin: 06/24/17 09:58 Dose: 12.5 mg Clindamycin Phosphate (Cleocin In Normal Saline) 600 mg in 50 mls @ 102 mls/hr IVPB Q8H [facility] Last Admin: 06/25/17 06:00 Dose: 102 mls/hr Lactated Ringer's (Lactated Ringer's) 1,000 mls @ 125 mls/hr IV .Q8H [facility] Last Admin: 06/24/17 22:47 Dose: Not Given Piperacillin Sod/Tazobactam (Sod 3.375 gm/ Sodium Chloride) 100 mls @ 200 mls/ hr IVPB Q6H [facility] Last Admin: 06/25/17 03:45 Dose: 200 mls/hr Ketorolac Tromethamine (Toradol) 30 mg IVP Q6 PRN PRN Reason: Pain, Mild (1-3) Last Admin: 06/24/17 21:01 Dose: 30 mg Levothyroxine Sodium (Synthroid) 50 mcg PO DAILY@0630 [facility] Last Admin: 06/25/17 05:50 Dose: 50 mcg Metformin HCl (Glucophage) 500 mg PO BID [facility] Last Admin: 06/24/17 17:58 Dose: 500 mg Morphine Sulfate (Morphine) 2 mg IVP Q4 PRN PRN Reason: Pain, moderate (4-7) Neomycin Sulfate (Neomycin Tab) 1,000 mg PO ONCE ONE Stop: 06/25/17 14:01 Neomycin Sulfate (Neomycin Tab) 1,000 mg PO ONCE ONE Stop: 06/25/17 15:01 Neomycin Sulfate (Neomycin Tab) 1,000 mg PO ONCE ONE Stop: 06/25/17 22:01 Ondansetron HCl (Zofran Inj) 4 mg IVP Q4 PRN PRN Reason: Nausea/Vomiting Pantoprazole Sodium (Protonix Inj) 40 mg IVP DAILY [facility] Last Admin: 06/24/17 10:00 Dose: 40 mg Pneumococcal Polyvalent Vaccine (Pneumovax 23 Vaccine) 0.5 ml IM .ONCE ONE Stop: 06/25/17 10:01 - Labs Labs: 06/24/17 07:49 06/24/17 07:49 PT 11.8 SECONDS (9.7-12.2) 06/23/17 17:13 INR 1.1 06/23/17 17:13 APTT 26 SECONDS (21-34) 06/23/17 17:13 - Constitutional Appears: Non-toxic, No Acute Distress - Head Exam Head Exam: ATRAUMATIC, NORMOCEPHALIC - Eye Exam Eye Exam: EOMI, PERRL. absent: Scleral icterus - ENT Exam ENT Exam: Mucous Membranes Moist, Normal Oropharynx - Neck Exam Neck Exam: Normal Inspection. absent: Tenderness - Respiratory Exam Respiratory Exam: Clear to Ausculation Bilateral. absent: Rhonchi, Wheezes - Cardiovascular Exam Cardiovascular Exam: RRR, +S1, +S2. absent: Rubs - GI/Abdominal Exam GI & Abdominal Exam: Soft, Tenderness (mild diffuse, worse LLQ), Normal Bowel Sounds. absent: Distended, Guarding - Neurological Exam Neurological Exam: Alert, Awake, Oriented x3 - Psychiatric Exam Psychiatric exam: Normal Affect, Normal Mood - Skin Skin Exam: Dry, Warm Assessment and Plan - Assessment and Plan (Free Text) Assessment: 52 year old female with A PMH of recurrent diverticulitis, HTN, DM, and hypothyroidism who presented with worsening abdominal pain Plan: Diverticulosis with recurrent diverticulitis Continue supportive care with IVF hydration Continue pain control Continue PRN anti-emetics Continue IV abx CT scan reviewed Per surgery scheduled for left hemicolectomy tomorrow Will continue to follow closely Discussed with fellow and attending physician Thank you for the pleasure of participating in the care of this patient <Ivan Serrato - Last Filed: 06/25/17 09:07> Objective - Vital Signs/Intake and Output Vital Signs (last 24 hours): Temp Pulse Resp BP Pulse Ox 97.8 F 60 20 124/79 97 06/25/17 07:54 06/25/17 07:54 06/25/17 07:54 06/25/17 07:54 06/25/17 07:54 Intake and Output: 06/25/17 06/25/17 06:59 18:59 Intake Total 1900 Balance 1900 - Medications Medications: Current Medications Atenolol (Tenormin) 50 mg PO DAILY [facility] Last Admin: 06/24/17 10:01 Dose: 50 mg Enoxaparin Sodium (Lovenox) 40 mg SC DAILY [facility] Last Admin: 06/24/17 09:57 Dose: 40 mg Erythromycin (Erythromycin) 1,000 mg PO ONCE ONE Stop: 06/25/17 14:01 Erythromycin (Erythromycin) 1,000 mg PO ONCE ONE Stop: 06/25/17 15:01 Erythromycin (Erythromycin) 1,000 mg PO ONCE ONE Stop: 06/25/17 22:01 Hydrochlorothiazide (Microzide) 12.5 mg PO DAILY [facility] Last Admin: 06/24/17 09:58 Dose: 12.5 mg Clindamycin Phosphate (Cleocin In Normal Saline) 600 mg in 50 mls @ 102 mls/hr IVPB Q8H [facility] Last Admin: 06/25/17 06:00 Dose: 102 mls/hr Lactated Ringer's (Lactated Ringer's) 1,000 mls @ 125 mls/hr IV .Q8H [facility] Last Admin: 06/25/17 08:00 Dose: 125 mls/hr Piperacillin Sod/Tazobactam (Sod 3.375 gm/ Sodium Chloride) 100 mls @ 200 mls/ hr IVPB Q6H [facility] Last Admin: 06/25/17 03:45 Dose: 200 mls/hr Ketorolac Tromethamine (Toradol) 30 mg IVP Q6 PRN PRN Reason: Pain, Mild (1-3) Last Admin: 06/24/17 21:01 Dose: 30 mg Levothyroxine Sodium (Synthroid) 50 mcg PO DAILY@0630 [facility] Last Admin: 06/25/17 05:50 Dose: 50 mcg Metformin HCl (Glucophage) 500 mg PO BID [facility] Last Admin: 06/24/17 17:58 Dose: 500 mg Morphine Sulfate (Morphine) 2 mg IVP Q4 PRN PRN Reason: Pain, moderate (4-7) Neomycin Sulfate (Neomycin Tab) 1,000 mg PO ONCE ONE Stop: 06/25/17 14:01 Neomycin Sulfate (Neomycin Tab) 1,000 mg PO ONCE ONE Stop: 06/25/17 15:01 Neomycin Sulfate (Neomycin Tab) 1,000 mg PO ONCE ONE Stop: 06/25/17 22:01 Ondansetron HCl (Zofran Inj) 4 mg IVP Q4 PRN PRN Reason: Nausea/Vomiting Pantoprazole Sodium (Protonix Inj) 40 mg IVP DAILY [facility] Last Admin: 06/24/17 10:00 Dose: 40 mg Pneumococcal Polyvalent Vaccine (Pneumovax 23 Vaccine) 0.5 ml IM .ONCE ONE Stop: 06/25/17 10:01 - Labs Labs: 06/25/17 07:23 06/25/17 07:23 PT 11.8 SECONDS (9.7-12.2) 06/23/17 17:13 INR 1.1 06/23/17 17:13 APTT 26 SECONDS (21-34) 06/23/17 17:13 Attending/Attestation - Attestation I have personally seen and examined this patient.: Yes I have fully participated in the care of the patient.: Yes I have reviewed all pertinent clinical information, including history, physical exam and plan: Yes Notes (Text): 06/25/17 09:03 I have seen and examined patient with GI fellow and medical detailist. No acute events overnight, she continues to endorse L sided abdominal pain, though improved compared to previous day. She otherwise denies nausea, vomiting, fever /chills. Tolerating PO liquids without difficulty. Review of vitals from today are normal. 12 point review of systems performed, negative aside from mentioned above. DM / HTN Hypothyroidism Abdominal pain - recurrent diverticulitis - Liquid diet as tolerated - Continue with antibiotic therapy - Continue with supportive care, pain control - Patient planned for surgical intervention tomorrow given recurrent bouts of left sided diverticulitis, further plan as per surgical team
--- NOTE | 2017-06-25 07:30 | CP.PCM.PN ---
Subjective - Date & Time of Evaluation Date of Evaluation: 06/25/17 Time of Evaluation: 11:47 - Subjective Subjective: PGY2 Medicine Note for Dr. En Patel; All management as per Dr. En Patel This patient was seen and examined at bedside this AM; german speaking translation done by myself; patient states that abdominal pain is much improved and managed; denies fevers/chills, WHEELER, CP, SOB, N/V/D, dysuria/freq/urg, or lower extremity pain/swelling. The patient is for colectomy tomorrow 06/26. She has been deemed medically optimized for surgery. Objective - Vital Signs/Intake and Output Vital Signs (last 24 hours): Temp Pulse Resp BP Pulse Ox 98.1 F 66 20 134/77 96 06/25/17 00:00 06/25/17 00:00 06/25/17 00:00 06/25/17 00:00 06/25/17 00:00 Intake and Output: 06/25/17 06/25/17 06:59 18:59 Intake Total 1900 Balance 1900 - Medications Medications: Current Medications Atenolol (Tenormin) 50 mg PO DAILY [facility] Last Admin: 06/24/17 10:01 Dose: 50 mg Enoxaparin Sodium (Lovenox) 40 mg SC DAILY [facility] Last Admin: 06/24/17 09:57 Dose: 40 mg Erythromycin (Erythromycin) 1,000 mg PO ONCE ONE Stop: 06/25/17 14:01 Erythromycin (Erythromycin) 1,000 mg PO ONCE ONE Stop: 06/25/17 15:01 Erythromycin (Erythromycin) 1,000 mg PO ONCE ONE Stop: 06/25/17 22:01 Hydrochlorothiazide (Microzide) 12.5 mg PO DAILY [facility] Last Admin: 06/24/17 09:58 Dose: 12.5 mg Clindamycin Phosphate (Cleocin In Normal Saline) 600 mg in 50 mls @ 102 mls/hr IVPB Q8H [facility] Last Admin: 06/25/17 06:00 Dose: 102 mls/hr Lactated Ringer's (Lactated Ringer's) 1,000 mls @ 125 mls/hr IV .Q8H [facility] Last Admin: 06/24/17 22:47 Dose: Not Given Piperacillin Sod/Tazobactam (Sod 3.375 gm/ Sodium Chloride) 100 mls @ 200 mls/ hr IVPB Q6H [facility] Last Admin: 06/25/17 03:45 Dose: 200 mls/hr Ketorolac Tromethamine (Toradol) 30 mg IVP Q6 PRN PRN Reason: Pain, Mild (1-3) Last Admin: 06/24/17 21:01 Dose: 30 mg Levothyroxine Sodium (Synthroid) 50 mcg PO DAILY@0630 [facility] Last Admin: 06/25/17 05:50 Dose: 50 mcg Metformin HCl (Glucophage) 500 mg PO BID [facility] Last Admin: 06/24/17 17:58 Dose: 500 mg Morphine Sulfate (Morphine) 2 mg IVP Q4 PRN PRN Reason: Pain, moderate (4-7) Neomycin Sulfate (Neomycin Tab) 1,000 mg PO ONCE ONE Stop: 06/25/17 14:01 Neomycin Sulfate (Neomycin Tab) 1,000 mg PO ONCE ONE Stop: 06/25/17 15:01 Neomycin Sulfate (Neomycin Tab) 1,000 mg PO ONCE ONE Stop: 06/25/17 22:01 Ondansetron HCl (Zofran Inj) 4 mg IVP Q4 PRN PRN Reason: Nausea/Vomiting Pantoprazole Sodium (Protonix Inj) 40 mg IVP DAILY [facility] Last Admin: 06/24/17 10:00 Dose: 40 mg Pneumococcal Polyvalent Vaccine (Pneumovax 23 Vaccine) 0.5 ml IM .ONCE ONE Stop: 06/25/17 10:01 - Labs Labs: 06/24/17 07:49 06/24/17 07:49 PT 11.8 SECONDS (9.7-12.2) 06/23/17 17:13 INR 1.1 06/23/17 17:13 APTT 26 SECONDS (21-34) 06/23/17 17:13 - Constitutional Appears: Well, Non-toxic - Head Exam Head Exam: ATRAUMATIC - Eye Exam Eye Exam: EOMI - ENT Exam ENT Exam: Mucous Membranes Moist - Neck Exam Neck Exam: Full ROM. absent: Lymphadenopathy - Respiratory Exam Respiratory Exam: Clear to Ausculation Bilateral, NORMAL BREATHING PATTERN. absent: Rales, Rhonchi, Wheezes - Cardiovascular Exam Cardiovascular Exam: REGULAR RHYTHM, +S1, +S2 - GI/Abdominal Exam GI & Abdominal Exam: Soft, Normal Bowel Sounds. absent: Tenderness, Organomegaly - Extremities Exam Extremities Exam: Full ROM. absent: Calf Tenderness - Back Exam Back Exam: NORMAL INSPECTION. absent: CVA tenderness (L) - Neurological Exam Neurological Exam: Alert, Awake, Oriented x3 - Psychiatric Exam Psychiatric exam: Normal Affect Assessment and Plan - Assessment and Plan (Free Text) Assessment: Acute Diverticulitis, recurrent Admit to med/surg Three previous episodes Afebrile, WBC WNL NPO with bowel prep today CT A/P (06/23/17): numerous left colonic and sigmoid diverticuli, w/o acute inflammation Taking Cipro/Flagyl as OPDX (Total of 9 days before coming to hospital) Dr. Schwab, GI enterprise resource planning consultant - EGD/Colonoscopy as OPDX (06/04/17): Gastritis/Diverticulosis in entire colon Dr. Xavier, Gen surgery - pt consents -> surgery 06/26, bowel prep 06/25-->surgery planned 06/26 Clindamycin 600mg IV Q8H (Day 3) Zosyn 3.375 gm IV Q6H (day 2) Zofran 4mg IV q4H PRN Toradol 30mg IV Q6H PRN, mild pain Morphine 2mg IV Q4H PRN, moderate pain LR @ 125cc/hr HTN;chronic Well-controlled Microzide 12.5mg PO daily Atenolol 50mg PO Daily T2DM;chronic Accuchecks Hypoglycemia protocl Metformin 500mg PO BID -f/u A1C, lipid panel Hypothyroidism;chronic Synthroid 50 mcg PO QAM - f/u TSH, free T4 Hematuria UA: 1+ blood, RBC 5 - will repeat UA Prophylaxis SCDs Lovenox 40mg SC daily Protonix 40mg IV Daily Dispo: Pending surgical sign off s/p colectomy All medical management per
[2017-06-25 07:37] LABS: BASO % 0.6 % (0.0-2.0); EOS # 0.1 K/uL (0.0-0.7); LYMPH # 1.8 K/uL (1.0-4.3); LYMPH % 32.7 % (20.0-40.0); MEAN CELL VOLUME 90.7 fL (81.0-99.0); MEAN CORPUSCULAR HEMOGLOBIN 30.8 pg (27.0-31.0); MEAN PLATELET VOLUME 7.7 fL (7.2-11.7); MONO # 0.4 K/uL (0.0-0.8); NRBC % 0.1 % (0.0-2.0); RED CELL DISTRIBUTION WIDTH 14.5 % (11.5-14.5); WHITE BLOOD COUNT 5.6 K/uL (4.8-10.8)
[2017-06-25] MEDS: Lactated Ringer's 1,000 ML IV SCH ×3 (08:00→23:00)
[2017-06-25 08:11] LABS: ALB/GLOB RATIO 0.9 (1.0-2.1); ALKALINE PHOSPHATASE 57 U/L (38-126); ALT/SGPT 41 U/L (9-52); AST/SGOT 25 U/L (14-36); BILIRUBIN,TOTAL 0.4 mg/dL (0.2-1.3); BLOOD UREA NITROGEN 4 mg/dL (7-17); CARBON DIOXIDE 33 mmol/L (22-30); CHLORIDE 102 mmol/L (98-107); CHOLESTEROL 121 mg/dL (0-199); GFR AFRICAN-AMERICAN > 60; GLUCOSE,RANDOM 121 mg/dL (65-105); MAGNESIUM 1.6 mg/dL (1.6-2.3); POTASSIUM 3.3 mmol/L (3.6-5.2); SODIUM 136 mmol/L (132-148); TOTAL PROTEIN 6.6 g/dL (6.3-8.3)
[2017-06-25 08:17] LABS: THYROID STIMULATING HORMONE 0.87 mIU/L (0.46-4.68)
[2017-06-25] MEDS ORDERED: Potassium Chloride 20 mEq/15 ml LIQ UD PO ONE (09:16)
[2017-06-25] MEDS ORDERED: Influenza Vaccine 60 mcg/0.5 mL SYR (4YR UP) IM ONE (10:00)
[2017-06-25] MEDS ORDERED: Pneumococcal 23-Valent Vaccine IM ONE (10:00)
--- NOTE | 2017-06-25 10:22 | CP.PCM.PN ---
<Elbert Peña - Last Filed: 06/25/17 10:19> Subjective - Date & Time of Evaluation Date of Evaluation: 06/25/17 Time of Evaluation: 07:30 - Subjective Subjective: Surgery Progress note. Dr. Xavier Pt seen and examined at bedside. No N/V. Abd pain with mild improvement. No F/ C. No new complaints. Received golytely yesterday and due to receive the rest of the bowel prep today. Does report having multiple episodes of diarrhea related to golytely. Objective - Vital Signs/Intake and Output Vital Signs (last 24 hours): Temp Pulse Resp BP Pulse Ox 97.8 F 60 20 124/79 97 06/25/17 07:54 06/25/17 07:54 06/25/17 07:54 06/25/17 07:54 06/25/17 07:54 Intake and Output: 06/25/17 06/25/17 06:59 18:59 Intake Total 1900 Balance 1900 - Medications Medications: Current Medications Atenolol (Tenormin) 50 mg PO DAILY [facility] Last Admin: 06/25/17 09:45 Dose: 50 mg Enoxaparin Sodium (Lovenox) 40 mg SC DAILY [facility] Last Admin: 06/24/17 09:57 Dose: 40 mg Erythromycin (Erythromycin) 1,000 mg PO ONCE ONE Stop: 06/25/17 14:01 Erythromycin (Erythromycin) 1,000 mg PO ONCE ONE Stop: 06/25/17 15:01 Erythromycin (Erythromycin) 1,000 mg PO ONCE ONE Stop: 06/25/17 22:01 Hydrochlorothiazide (Microzide) 12.5 mg PO DAILY [facility] Last Admin: 06/25/17 09:45 Dose: 12.5 mg Clindamycin Phosphate (Cleocin In Normal Saline) 600 mg in 50 mls @ 102 mls/hr IVPB Q8H [facility] Last Admin: 06/25/17 06:00 Dose: 102 mls/hr Lactated Ringer's (Lactated Ringer's) 1,000 mls @ 125 mls/hr IV .Q8H [facility] Last Admin: 06/25/17 08:00 Dose: 125 mls/hr Piperacillin Sod/Tazobactam (Sod 3.375 gm/ Sodium Chloride) 100 mls @ 200 mls/ hr IVPB Q6H [facility] Last Admin: 06/25/17 09:43 Dose: 200 mls/hr Ketorolac Tromethamine (Toradol) 30 mg IVP Q6 PRN PRN Reason: Pain, Mild (1-3) Last Admin: 06/24/17 21:01 Dose: 30 mg Levothyroxine Sodium (Synthroid) 50 mcg PO DAILY@0630 [facility] Last Admin: 06/25/17 05:50 Dose: 50 mcg Metformin HCl (Glucophage) 500 mg PO BID [facility] Last Admin: 06/25/17 09:44 Dose: 500 mg Morphine Sulfate (Morphine) 2 mg IVP Q4 PRN PRN Reason: Pain, moderate (4-7) Neomycin Sulfate (Neomycin Tab) 1,000 mg PO ONCE ONE Stop: 06/25/17 14:01 Neomycin Sulfate (Neomycin Tab) 1,000 mg PO ONCE ONE Stop: 06/25/17 15:01 Neomycin Sulfate (Neomycin Tab) 1,000 mg PO ONCE ONE Stop: 06/25/17 22:01 Ondansetron HCl (Zofran Inj) 4 mg IVP Q4 PRN PRN Reason: Nausea/Vomiting Pantoprazole Sodium (Protonix Inj) 40 mg IVP DAILY [facility] Last Admin: 06/25/17 09:44 Dose: 40 mg - Labs Labs: 06/25/17 07:23 06/25/17 07:23 PT 11.8 SECONDS (9.7-12.2) 06/23/17 17:13 INR 1.1 06/23/17 17:13 APTT 26 SECONDS (21-34) 06/23/17 17:13 - Constitutional Appears: Well, Non-toxic, No Acute Distress - Head Exam Head Exam: ATRAUMATIC, NORMAL INSPECTION, NORMOCEPHALIC - Eye Exam Eye Exam: EOMI - ENT Exam ENT Exam: Mucous Membranes Moist - Respiratory Exam Respiratory Exam: NORMAL BREATHING PATTERN. absent: Accessory Muscle Use, Respiratory Distress - Cardiovascular Exam Cardiovascular Exam: absent: JVD - GI/Abdominal Exam GI & Abdominal Exam: Soft. absent: Distended, Guarding, Rigid Additional comments: Left upper quadrant tenderness to palpation. No rebound, no guarding. - Extremities Exam Extremities Exam: Normal Inspection - Neurological Exam Neurological Exam: Alert, Awake, Oriented x3 - Psychiatric Exam Psychiatric exam: Normal Affect, Normal Mood - Skin Skin Exam: Dry, Intact, Normal Color, Warm Assessment and Plan - Assessment and Plan (Free Text) Assessment: 52yo F with recurrent diverticulitis; not improved with PO abx as out-patient - cont IV abx - May cont CLD today - Complete the bowel prep regimen as ordered - Plan for OR tomorrow morning, 06/26 - NPO past MN Further recs as per Dr. Morenita Peña PGY1 surgery pager: [phone] <Timothy Xavier - Last Filed: 06/27/17 17:50> Objective - Vital Signs/Intake and Output Vital Signs (last 24 hours): Temp Pulse Resp BP Pulse Ox 97.1 F L 90 18 105/68 94 L 06/27/17 07:45 06/27/17 07:45 06/27/17 07:45 06/27/17 07:45 06/27/17 07:45 Intake and Output: 06/27/17 06/27/17 06:59 18:59 Intake Total 975 1350 Output Total 955 20 Balance 20 1330 - Medications Medications: Current Medications Atenolol (Tenormin) 50 mg PO DAILY [facility] Last Admin: 06/27/17 11:30 Dose: Not Given Diphenhydramine HCl (Benadryl) 25 mg IVP Q6 PRN PRN Reason: Itching / Pruritus Enoxaparin Sodium (Lovenox) 40 mg SC DAILY [facility] Last Admin: 06/27/17 11:32 Dose: 40 mg Hydrochlorothiazide (Microzide) 12.5 mg PO DAILY [facility] Last Admin: 06/27/17 11:30 Dose: Not Given Hydromorphone HCl (Dilaudid) 0.5 mg IVP Q3 PRN PRN Reason: breakthrough pain Hydromorphone HCl (Dilaudid) 1 mg IVP Q3H PRN PRN Reason: Pain, severe (8-10) Clindamycin Phosphate (Cleocin In Normal Saline) 600 mg in 50 mls @ 102 mls/hr IVPB Q8H [facility] Last Admin: 06/27/17 14:32 Dose: 102 mls/hr Lactated Ringer's (Lactated Ringer's) 1,000 mls @ 125 mls/hr IV .Q8H [facility] Last Admin: 06/27/17 08:30 Dose: 125 mls/hr Piperacillin Sod/Tazobactam Sod (Zosyn 3.375 Gm Iv Premix) 3.375 gm in 50 mls @ 200 mls/hr IVPB Q6H [facility] Last Admin: 06/27/17 11:33 Dose: 200 mls/hr BUPIVACAINE 0.125%/0.9% NACL (Bupivacaine-Ns 0.125% On-Q Supervisor Pre Wave) 600 mls @ 4 mls/ hr IJ ONCE ONE Stop: 07/02/17 19:13 Last Admin: 06/26/17 14:15 Dose: 6 mls Levothyroxine Sodium (Synthroid) 50 mcg PO DAILY@0630 [facility] Last Admin: 06/27/17 07:20 Dose: Not Given Metformin HCl (Glucophage) 500 mg PO BID [facility] Last Admin: 06/27/17 11:32 Dose: 500 mg Naloxone HCl (Narcan) 0.1 mg IVP Q2M PRN PRN Reason: apnea Ondansetron HCl (Zofran Inj) 4 mg IVP Q4 PRN PRN Reason: Nausea/Vomiting Last Admin: 06/26/17 05:52 Dose: 4 mg Oxycodone/Acetaminophen (Percocet 5/325 Mg Tab) 1 tab PO Q4H PRN PRN Reason: Pain, moderate (4-7) Stop: 06/30/17 17:45 Pantoprazole Sodium (Protonix Inj) 40 mg IVP DAILY [facility] Last Admin: 06/27/17 11:32 Dose: 40 mg - Labs Labs: 06/27/17 06:28 06/27/17 06:28 PT 11.8 SECONDS (9.7-12.2) 06/23/17 17:13 INR 1.1 06/23/17 17:13 APTT 26 SECONDS (21-34) 06/23/17 17:13 Attending/Attestation - Attestation I have personally seen and examined this patient.: Yes I have fully participated in the care of the patient.: Yes I have reviewed all pertinent clinical information, including history, physical exam and plan: Yes Notes (Text): Pt was seen and examined at bedside Agree with above note and assessment Pt with recurrent Diverticulitis with abdominal pain. LLQ tenderness Labs and radiology reviewed Ass: Recurrent Diverticulitis with diverticulosis OR for Lap/Robotic Sigmoidectomy/Left hemicolectomy possible Open IV antibiotics NPO, IVF Preop bowel prep Po Neomycin/erythromycin Plan d.w pt in detail Risk and benefit explained in detail.
--- NOTE | 2017-06-25 10:29 | RAD ---
Chest x-ray two views History: Preoperative evaluation. Comparison: None available. Findings: No focal infiltrate or effusion. Small nodular density at the lateral aspect of the right mid lung zone likely represents confluence shadows with ribs and vessels. Heart size within normal limits. Surgical clips in the upper abdomen. Degenerative changes in the spine and shoulders. Impression: No focal infiltrate or effusion.
[2017-06-25] MEDS ORDERED: Potassium Chloride 10 mEq ER Tab PO STA ×2 (18:08→19:52)
--- NOTE | 2017-06-25 18:26 | CP.PCM.PN ---
Subjective - Date & Time of Evaluation Date of Evaluation: 06/25/17 Time of Evaluation: 07:40 - Subjective Subjective: clinically same Objective - Vital Signs/Intake and Output Vital Signs (last 24 hours): Temp Pulse Resp BP Pulse Ox 98.4 F 66 20 115/73 95 06/25/17 16:00 06/25/17 16:00 06/25/17 16:00 06/25/17 16:00 06/25/17 16:00 Intake and Output: 06/25/17 06/25/17 06:59 18:59 Intake Total 1900 1400 Balance 1900 1400 - Medications Medications: Current Medications Atenolol (Tenormin) 50 mg PO DAILY [facility] Last Admin: 06/25/17 09:45 Dose: 50 mg Enoxaparin Sodium (Lovenox) 40 mg SC DAILY [facility] Last Admin: 06/24/17 09:57 Dose: 40 mg Erythromycin (Erythromycin) 1,000 mg PO ONCE ONE Stop: 06/25/17 22:01 Hydrochlorothiazide (Microzide) 12.5 mg PO DAILY [facility] Last Admin: 06/25/17 09:45 Dose: 12.5 mg Clindamycin Phosphate (Cleocin In Normal Saline) 600 mg in 50 mls @ 102 mls/hr IVPB Q8H [facility] Last Admin: 06/25/17 15:02 Dose: 102 mls/hr Lactated Ringer's (Lactated Ringer's) 1,000 mls @ 125 mls/hr IV .Q8H [facility] Last Admin: 06/25/17 15:00 Dose: 125 mls/hr Piperacillin Sod/Tazobactam (Sod 3.375 gm/ Sodium Chloride) 100 mls @ 200 mls/ hr IVPB Q6H [facility] Last Admin: 06/25/17 16:00 Dose: 200 mls/hr Ketorolac Tromethamine (Toradol) 30 mg IVP Q6 PRN PRN Reason: Pain, Mild (1-3) Last Admin: 06/24/17 21:01 Dose: 30 mg Levothyroxine Sodium (Synthroid) 50 mcg PO DAILY@0630 [facility] Last Admin: 06/25/17 05:50 Dose: 50 mcg Metformin HCl (Glucophage) 500 mg PO BID [facility] Last Admin: 06/25/17 18:01 Dose: Not Given Morphine Sulfate (Morphine) 2 mg IVP Q4 PRN PRN Reason: Pain, moderate (4-7) Neomycin Sulfate (Neomycin Tab) 1,000 mg PO ONCE ONE Stop: 06/25/17 22:01 Ondansetron HCl (Zofran Inj) 4 mg IVP Q4 PRN PRN Reason: Nausea/Vomiting Pantoprazole Sodium (Protonix Inj) 40 mg IVP DAILY [facility] Last Admin: 06/25/17 09:44 Dose: 40 mg - Labs Labs: 06/25/17 07:23 06/25/17 07:23 PT 11.8 SECONDS (9.7-12.2) 06/23/17 17:13 INR 1.1 06/23/17 17:13 APTT 26 SECONDS (21-34) 06/23/17 17:13 - Constitutional Appears: Well - Head Exam Head Exam: ATRAUMATIC, NORMAL INSPECTION, NORMOCEPHALIC - Eye Exam Eye Exam: EOMI, Normal appearance, PERRL Pupil Exam: NORMAL ACCOMODATION, PERRL - ENT Exam ENT Exam: Mucous Membranes Moist, Normal Exam - Neck Exam Neck Exam: Full ROM, Normal Inspection. absent: Lymphadenopathy - Respiratory Exam Respiratory Exam: Decreased Breath Sounds - Cardiovascular Exam Cardiovascular Exam: REGULAR RHYTHM, +S1, +S2 - GI/Abdominal Exam GI & Abdominal Exam: Soft, Diminished Bowel Sounds - Rectal Exam Rectal Exam: Deferred
[2017-06-26] MEDS: Piperacillin/Tazobact 3.375 GM in Sodium Chloride 100 ML IVPB SCH ×2 (03:29→10:00)
[2017-06-26] MEDS: Levothyroxine 50 MCG TAB PO SCH (05:33)
[2017-06-26] MEDS: Clindamycin 600mg/50ml NS 600 MG/50 ML BAG IVPB SCH ×2 (06:03→22:04)
--- NOTE | 2017-06-26 07:10 | CP.PCM.PN ---
<Sridhar Scott - Last Filed: 06/26/17 16:05> Subjective - Date & Time of Evaluation Date of Evaluation: 06/26/17 Time of Evaluation: 06:50 - Subjective Subjective: Sridhar Scott D.O. PGY-2, GI Progress Note 52 year old female with A PMH of recurrent diverticulitis, HTN, DM, and hypothyroidism who presented with worsening abdominal pain. Patient was seen and examined at bedside. Patient states that she has done well with the golytely prep for surgery today and has had multiple episodes of diarrhea. Still with mild LLQ pain. Patient is schedule for hemicolectomy today at 0745. No other complaints. No overnight events. Objective - Vital Signs/Intake and Output Vital Signs (last 24 hours): Temp Pulse Resp BP Pulse Ox 98.1 F 78 20 146/74 95 06/26/17 05:00 06/26/17 05:00 06/26/17 05:00 06/26/17 05:00 06/26/17 05:00 - Medications Medications: Current Medications Atenolol (Tenormin) 50 mg PO DAILY [facility] Last Admin: 06/25/17 09:45 Dose: 50 mg Enoxaparin Sodium (Lovenox) 40 mg SC DAILY [facility] Last Admin: 06/24/17 09:57 Dose: 40 mg Hydrochlorothiazide (Microzide) 12.5 mg PO DAILY [facility] Last Admin: 06/25/17 09:45 Dose: 12.5 mg Clindamycin Phosphate (Cleocin In Normal Saline) 600 mg in 50 mls @ 102 mls/hr IVPB Q8H [facility] Last Admin: 06/26/17 06:03 Dose: 102 mls/hr Lactated Ringer's (Lactated Ringer's) 1,000 mls @ 125 mls/hr IV .Q8H [facility] Last Admin: 06/25/17 23:00 Dose: Not Given Piperacillin Sod/Tazobactam (Sod 3.375 gm/ Sodium Chloride) 100 mls @ 200 mls/ hr IVPB Q6H [facility] Last Admin: 06/26/17 03:29 Dose: 200 mls/hr Levothyroxine Sodium (Synthroid) 50 mcg PO DAILY@0630 [facility] Last Admin: 06/26/17 05:33 Dose: 50 mcg Metformin HCl (Glucophage) 500 mg PO BID [facility] Last Admin: 06/25/17 18:01 Dose: Not Given Morphine Sulfate (Morphine) 2 mg IVP Q4 PRN PRN Reason: Pain, moderate (4-7) Ondansetron HCl (Zofran Inj) 4 mg IVP Q4 PRN PRN Reason: Nausea/Vomiting Last Admin: 06/26/17 05:52 Dose: 4 mg Pantoprazole Sodium (Protonix Inj) 40 mg IVP DAILY [facility] Last Admin: 06/25/17 09:44 Dose: 40 mg - Labs Labs: 06/25/17 07:23 06/25/17 07:23 PT 11.8 SECONDS (9.7-12.2) 06/23/17 17:13 INR 1.1 06/23/17 17:13 APTT 26 SECONDS (21-34) 06/23/17 17:13 - Constitutional Appears: Non-toxic, No Acute Distress - Head Exam Head Exam: ATRAUMATIC, NORMOCEPHALIC - Eye Exam Eye Exam: EOMI, PERRL. absent: Scleral icterus - ENT Exam ENT Exam: Mucous Membranes Moist, Normal Oropharynx - Neck Exam Neck Exam: Normal Inspection. absent: Tenderness - Respiratory Exam Respiratory Exam: Clear to Ausculation Bilateral. absent: Rhonchi, Wheezes - Cardiovascular Exam Cardiovascular Exam: RRR, +S1, +S2. absent: Rubs - GI/Abdominal Exam GI & Abdominal Exam: Soft, Tenderness (mild LLQ), Normal Bowel Sounds. absent: Distended, Guarding - Neurological Exam Neurological Exam: Alert, Awake, Oriented x3 - Psychiatric Exam Psychiatric exam: Normal Affect, Normal Mood - Skin Skin Exam: Dry, Warm Assessment and Plan - Assessment and Plan (Free Text) Assessment: 52 year old female with A PMH of recurrent diverticulitis, HTN, DM, and hypothyroidism who presented with worsening abdominal pain Plan: Diverticulosis with recurrent diverticulitis failing outpatient abx NPO at this time for left hemicolectomy with general surgery at 0745, management per surgery team Continue IVF hydration, pain control, PRN antiemetics, and abx Continue PPI We will follow with you Discussed with fellow and attending physician Thank you for the pleasure of participating in the care of this patient <Dhruv Gutierrez - Last Filed: 06/26/17 18:03> Objective - Vital Signs/Intake and Output Vital Signs (last 24 hours): Temp Pulse Resp BP Pulse Ox 97.4 F L 98 H 20 134/96 H 95 06/26/17 16:15 06/26/17 16:15 06/26/17 16:15 06/26/17 16:15 06/26/17 16:15 Intake and Output: 06/26/17 06/26/17 06:59 18:59 Intake Total 6 Output Total 1800 Balance -1794 - Medications Medications: Current Medications Atenolol (Tenormin) 50 mg PO DAILY [facility] Last Admin: 06/26/17 09:14 Dose: Not Given Diphenhydramine HCl (Benadryl) 25 mg IVP Q6 PRN PRN Reason: Itching / Pruritus Enoxaparin Sodium (Lovenox) 40 mg SC DAILY [facility] Last Admin: 06/24/17 09:57 Dose: 40 mg Hydrochlorothiazide (Microzide) 12.5 mg PO DAILY [facility] Last Admin: 06/26/17 09:13 Dose: Not Given Clindamycin Phosphate (Cleocin In Normal Saline) 600 mg in 50 mls @ 102 mls/hr IVPB Q8H [facility] Last Admin: 06/26/17 06:03 Dose: 102 mls/hr Lactated Ringer's (Lactated Ringer's) 1,000 mls @ 125 mls/hr IV .Q8H [facility] Last Admin: 06/26/17 07:20 Dose: Not Given Piperacillin Sod/Tazobactam Sod (Zosyn 3.375 Gm Iv Premix) 3.375 gm in 50 mls @ 200 mls/hr IVPB Q6H [facility] Last Admin: 06/26/17 15:48 Dose: 50 mls BUPIVACAINE 0.125%/0.9% NACL (Bupivacaine-Ns 0.125% On-Q Geriatrician) 600 mls @ 4 mls/ hr IJ ONCE ONE Stop: 07/02/17 19:13 Last Admin: 06/26/17 14:15 Dose: 6 mls Levothyroxine Sodium (Synthroid) 50 mcg PO DAILY@0630 [facility] Last Admin: 06/26/17 05:33 Dose: 50 mcg Metformin HCl (Glucophage) 500 mg PO BID [facility] Last Admin: 06/26/17 17:31 Dose: Not Given Morphine Sulfate/Sodium Chloride (Morphine Accounting Manager Monoject Barrel) 30 mg IV Q4H PRN; Protocol PRN Reason: Pain, moderate (4-7) Stop: 06/27/17 14:07 Naloxone HCl (Narcan) 0.1 mg IVP Q2M PRN PRN Reason: apnea Ondansetron HCl (Zofran Inj) 4 mg IVP Q4 PRN PRN Reason: Nausea/Vomiting Last Admin: 06/26/17 05:52 Dose: 4 mg Pantoprazole Sodium (Protonix Inj) 40 mg IVP DAILY [facility] Last Admin: 06/26/17 09:14 Dose: Not Given - Labs Labs: 06/26/17 07:07 06/26/17 07:07 PT 11.8 SECONDS (9.7-12.2) 06/23/17 17:13 INR 1.1 06/23/17 17:13 APTT 26 SECONDS (21-34) 06/23/17 17:13 Attending/Attestation - Attestation I have personally seen and examined this patient.: Yes I have fully participated in the care of the patient.: Yes I have reviewed all pertinent clinical information, including history, physical exam and plan: Yes Notes (Text): 06/26/17 12:02 52 year old female with h/o HTN, DM, Hypothyroidism, prior episodes of diverticulitis admitted with recurrent diverticulitis. 1. Acute diverticulitis Plan: -considering h/o multiple episodes of diverticulitis despite conservative medical therapy, plan was for OR today -patient undergoing surgery today -will follow post op
[2017-06-26] MEDS ORDERED: Propofol 10 mg/ml Inj (20 ML) ONE (07:16)
[2017-06-26] MEDS ORDERED: Midazolam 2 MG/2 ML VIAL ONE (07:16)
[2017-06-26] MEDS ORDERED: Rocuronium 10 mg/ml (5 ml) ONE (07:19)
[2017-06-26] MEDS ORDERED: ePHEDrine 50 mg/ml Inj ONE (07:19)
[2017-06-26] MEDS ORDERED: Phenylephrine 10 mg/ml Inj ONE (07:19)
[2017-06-26 07:20] LABS: BASO % 0.6 % (0.0-2.0); EOS # 0.1 K/uL (0.0-0.7); EOS % 0.9 % (0.0-4.0); HEMATOCRIT 35.4 % (34.0-47.0); LYMPH # 1.4 K/uL (1.0-4.3); LYMPH % 18.8 % (20.0-40.0); MEAN CELL VOLUME 90.2 fL (81.0-99.0); MEAN CORPUSCULAR HEMOGLOBIN 31.3 pg (27.0-31.0); MEAN CORPUSCULAR HGB CONC 34.7 g/dL (33.0-37.0); MEAN PLATELET VOLUME 7.9 fL (7.2-11.7); MONO # 0.3 K/uL (0.0-0.8); MONO % 4.5 % (0.0-10.0); RED CELL DISTRIBUTION WIDTH 14.5 % (11.5-14.5); WHITE BLOOD COUNT 7.6 K/uL (4.8-10.8)
[2017-06-26] MEDS: Lactated Ringer's 1,000 ML IV SCH ×2 (07:20→22:03)
[2017-06-26] MEDS ORDERED: ceFAZolin IV 2 gm in Dextrose 2 GM/50 ML BAG IVPB ONE (07:38)
[2017-06-26] MEDS ORDERED: metroNIDAZOLE IV 500 mg/100 ml 500 MG/100 ML BAG ONE (07:38)
[2017-06-26] MEDS ORDERED: Lidocaine 1% Inj (20ml) ONE (07:38)
[2017-06-26] MEDS ORDERED: Lactated Ringer's 1,000 ML IV ONE ×6 (07:50→11:36)
[2017-06-26 07:57] LABS: ALB/GLOB RATIO 1.4 (1.0-2.1); ALKALINE PHOSPHATASE 59 U/L (38-126); ALT/SGPT 41 U/L (9-52); AST/SGOT 30 U/L (14-36); BILIRUBIN,TOTAL 0.6 mg/dL (0.2-1.3); BLOOD UREA NITROGEN 3 mg/dL (7-17); CALCIUM 8.3 mg/dl (8.6-10.4); CARBON DIOXIDE 29 mmol/L (22-30); CHLORIDE 101 mmol/L (98-107); GFR AFRICAN-AMERICAN > 60; GLUCOSE,RANDOM 144 mg/dL (65-105); MAGNESIUM 1.5 mg/dL (1.6-2.3); POTASSIUM 3.6 mmol/L (3.6-5.2); SODIUM 136 mmol/L (132-148)
[2017-06-26] MEDS ORDERED: Bupivacaine-Epi 0.25%-1:200,000 PF Inj ONE (08:02)
--- NOTE | 2017-06-26 09:11 | CP.PCM.PN ---
Subjective - Date & Time of Evaluation Date of Evaluation: 06/26/17 Time of Evaluation: 09:09 - Subjective Subjective: PGY2 Progress note for 's service Patient seen and examined at bedside. Nursing reports no acute events overnight. Pt is NPO for colectomy this AM. She reports her left lower quadrant abdominal pain is much improved from admission and she denies fevers/chills, WHEELER , CP, SOB, N/V/D, or lower extremity pain/swelling. Objective - Vital Signs/Intake and Output Vital Signs (last 24 hours): Temp Pulse Resp BP Pulse Ox 98.1 F 78 20 146/74 95 06/26/17 05:00 06/26/17 05:00 06/26/17 05:00 06/26/17 05:00 06/26/17 05:00 - Medications Medications: Current Medications Atenolol (Tenormin) 50 mg PO DAILY [facility] Last Admin: 06/25/17 09:45 Dose: 50 mg Enoxaparin Sodium (Lovenox) 40 mg SC DAILY [facility] Last Admin: 06/24/17 09:57 Dose: 40 mg Hydrochlorothiazide (Microzide) 12.5 mg PO DAILY [facility] Last Admin: 06/25/17 09:45 Dose: 12.5 mg Clindamycin Phosphate (Cleocin In Normal Saline) 600 mg in 50 mls @ 102 mls/hr IVPB Q8H [facility] Last Admin: 06/26/17 06:03 Dose: 102 mls/hr Lactated Ringer's (Lactated Ringer's) 1,000 mls @ 125 mls/hr IV .Q8H [facility] Last Admin: 06/25/17 23:00 Dose: Not Given Piperacillin Sod/Tazobactam (Sod 3.375 gm/ Sodium Chloride) 100 mls @ 200 mls/ hr IVPB Q6H [facility] Last Admin: 06/26/17 03:29 Dose: 200 mls/hr Levothyroxine Sodium (Synthroid) 50 mcg PO DAILY@0630 [facility] Last Admin: 06/26/17 05:33 Dose: 50 mcg Metformin HCl (Glucophage) 500 mg PO BID [facility] Last Admin: 06/25/17 18:01 Dose: Not Given Morphine Sulfate (Morphine) 2 mg IVP Q4 PRN PRN Reason: Pain, moderate (4-7) Ondansetron HCl (Zofran Inj) 4 mg IVP Q4 PRN PRN Reason: Nausea/Vomiting Last Admin: 06/26/17 05:52 Dose: 4 mg Pantoprazole Sodium (Protonix Inj) 40 mg IVP DAILY [facility] Last Admin: 06/25/17 09:44 Dose: 40 mg - Labs Labs: 06/26/17 07:07 06/26/17 07:07 PT 11.8 SECONDS (9.7-12.2) 06/23/17 17:13 INR 1.1 06/23/17 17:13 APTT 26 SECONDS (21-34) 06/23/17 17:13 - Constitutional Appears: Non-toxic, No Acute Distress - Head Exam Head Exam: ATRAUMATIC, NORMOCEPHALIC - Eye Exam Eye Exam: EOMI, Normal appearance. absent: Scleral icterus - ENT Exam ENT Exam: Mucous Membranes Moist - Respiratory Exam Respiratory Exam: Clear to Ausculation Bilateral, NORMAL BREATHING PATTERN - Cardiovascular Exam Cardiovascular Exam: REGULAR RHYTHM, +S1, +S2 - GI/Abdominal Exam GI & Abdominal Exam: Soft, Tenderness (mild LLQ), Normal Bowel Sounds - Extremities Exam Extremities Exam: Normal Inspection. absent: Pedal Edema - Neurological Exam Neurological Exam: Alert, Awake, Oriented x3 - Psychiatric Exam Psychiatric exam: Normal Affect, Normal Mood - Skin Skin Exam: Dry, Normal Color, Warm Assessment and Plan - Assessment and Plan (Free Text) Plan: Acute Diverticulitis, recurrent Admit to med/surg Three previous episodes Afebrile, WBC WNL NPO for colectomy this AM CT A/P (06/23/17): numerous left colonic and sigmoid diverticuli, w/o acute inflammation Taking Cipro/Flagyl as OPDX (Total of 9 days before coming to hospital) Dr. Schwab, GI storage consultant - EGD/Colonoscopy as OPDX (06/04/17): Gastritis/Diverticulosis in entire colon Dr. Xavier, Gen surgery - pt consents -> surgery 06/26, bowel prep 06/25-->surgery today Clindamycin 600mg IV Q8H (Day 3) Zosyn 3.375 gm IV Q6H (day 2) Zofran 4mg IV q4H PRN Toradol 30mg IV Q6H PRN, mild pain Morphine 2mg IV Q4H PRN, moderate pain LR @ 125cc/hr HTN;chronic Well-controlled Microzide 12.5mg PO daily Atenolol 50mg PO Daily T2DM;chronic Accuchecks Hypoglycemia protocl Metformin 500mg PO BID -A1C 7.2 -Lipid panel: LDL 52, HDL 48, T chol 121, Tri 72 Hypothyroidism;chronic Synthroid 50 mcg PO QAM - TSH/Free T4 WNL Hematuria UA: 1+ blood, RBC 5 - will repeat UA Prophylaxis SCDs Lovenox 40mg SC daily (HOLD, will restart when okayed by surgery) Protonix 40mg IV Daily Dispo: Pending surgical sign off s/p colectomy Chalo Dodge PGY-2 All medical management per
[2017-06-26] MEDS ORDERED: Bupivacaine HCl 0.5% PF (10 ml) Inj ONE (12:40)
[2017-06-26] MEDS ORDERED: Neostigmine Methylsulfate 3mg/3ml Syringe IV ONE (12:54)
[2017-06-26] MEDS ORDERED: BUPIVACAINE 0.125%/0.9% NACL 600 ML IJ ONE (13:14)
--- NOTE | 2017-06-26 13:54 | PCM.SURG1 ---
Surgeon's Initial Post Op Note - Surgeon's Notes Surgeon: Dr. Xavier Continuity Person: Mariana Goetz PGY1 Type of Anesthesia: General Endo Pre-Operative Diagnosis: Diverticulosis, Recurrent Diverticulitis, Abdominal Pain Operative Findings: See operative report Post-Operative Diagnosis: same Operation Performed: Robotic Splenic Flexure mobilization; Laparoscopic Extensive Lysis of Adhesions; Laparoscopic sigmoidectomy, converted to open; Placement of On-Q catheter x2 Specimen/Specimens Removed: Sigmoid colon; Donut x2 Estimated Blood Loss: EBL {In ML}: 200 Blood Products Given: N/A Drains Used: Hans Post-Op Condition: Good Date of Surgery/Procedure: 06/26/17 Time of Surgery/Procedure: 13:58
[2017-06-26] MEDS ORDERED: DiphenhydrAMINE 50 mg/ml Inj IVP PRN (14:07)
[2017-06-26] MEDS ORDERED: Morphine Monoject Barrel PCA 1mg/ml IV PRN (14:07)
[2017-06-26] MEDS ORDERED: Naloxone 0.4 mg/ml Inj (Adult) IVP PRN (14:07)
[2017-06-26] MEDS: HYDROmorphone 0.5 mg/0.5 ml ISec IVP PRN ×3 (14:25→15:32)
[2017-06-26] MEDS: Piperacill/Tazo 3.375gm in Dex 3.375 GM/50 ML BAG IVPB SCH ×2 (15:48→21:28)
--- NOTE | 2017-06-26 19:43 | CP.PCM.PN ---
Subjective - Date & Time of Evaluation Date of Evaluation: 06/26/17 Time of Evaluation: 11:00 - Subjective Subjective: clinically same Objective - Vital Signs/Intake and Output Vital Signs (last 24 hours): Temp Pulse Resp BP Pulse Ox 97.4 F L 98 H 12 134/96 H 99 06/26/17 16:15 06/26/17 16:15 06/26/17 18:22 06/26/17 16:15 06/26/17 18:22 Intake and Output: 06/26/17 06/27/17 18:59 06:59 Intake Total 6 Output Total 1800 Balance -1794 - Medications Medications: Current Medications Atenolol (Tenormin) 50 mg PO DAILY [facility] Last Admin: 06/26/17 09:14 Dose: Not Given Diphenhydramine HCl (Benadryl) 25 mg IVP Q6 PRN PRN Reason: Itching / Pruritus Enoxaparin Sodium (Lovenox) 40 mg SC DAILY [facility] Last Admin: 06/24/17 09:57 Dose: 40 mg Hydrochlorothiazide (Microzide) 12.5 mg PO DAILY [facility] Last Admin: 06/26/17 09:13 Dose: Not Given Clindamycin Phosphate (Cleocin In Normal Saline) 600 mg in 50 mls @ 102 mls/hr IVPB Q8H [facility] Last Admin: 06/26/17 06:03 Dose: 102 mls/hr Lactated Ringer's (Lactated Ringer's) 1,000 mls @ 125 mls/hr IV .Q8H [facility] Last Admin: 06/26/17 07:20 Dose: Not Given Piperacillin Sod/Tazobactam Sod (Zosyn 3.375 Gm Iv Premix) 3.375 gm in 50 mls @ 200 mls/hr IVPB Q6H [facility] Last Admin: 06/26/17 15:48 Dose: 50 mls BUPIVACAINE 0.125%/0.9% NACL (Bupivacaine-Ns 0.125% On-Q [employer]) 600 mls @ 4 mls/ hr IJ ONCE ONE Stop: 07/02/17 19:13 Last Admin: 06/26/17 14:15 Dose: 6 mls Levothyroxine Sodium (Synthroid) 50 mcg PO DAILY@0630 [facility] Last Admin: 06/26/17 05:33 Dose: 50 mcg Metformin HCl (Glucophage) 500 mg PO BID [facility] Last Admin: 06/26/17 17:31 Dose: Not Given Morphine Sulfate/Sodium Chloride (Morphine Product Accountant Monoject Barrel) 30 mg IV Q4H PRN; Protocol PRN Reason: Pain, moderate (4-7) Stop: 06/27/17 14:07 Last Admin: 06/26/17 16:20 Dose: 30 mg Naloxone HCl (Narcan) 0.1 mg IVP Q2M PRN PRN Reason: apnea Ondansetron HCl (Zofran Inj) 4 mg IVP Q4 PRN PRN Reason: Nausea/Vomiting Last Admin: 06/26/17 05:52 Dose: 4 mg Pantoprazole Sodium (Protonix Inj) 40 mg IVP DAILY [facility] Last Admin: 06/26/17 09:14 Dose: Not Given - Labs Labs: 06/26/17 07:07 06/26/17 07:07 PT 11.8 SECONDS (9.7-12.2) 06/23/17 17:13 INR 1.1 06/23/17 17:13 APTT 26 SECONDS (21-34) 06/23/17 17:13 - Constitutional Appears: Well - Head Exam Head Exam: ATRAUMATIC, NORMAL INSPECTION, NORMOCEPHALIC - Eye Exam Eye Exam: EOMI, Normal appearance, PERRL Pupil Exam: NORMAL ACCOMODATION, PERRL - ENT Exam ENT Exam: Mucous Membranes Moist, Normal Exam - Neck Exam Neck Exam: Full ROM, Normal Inspection. absent: Lymphadenopathy - Respiratory Exam Respiratory Exam: Decreased Breath Sounds - Cardiovascular Exam Cardiovascular Exam: REGULAR RHYTHM, +S1, +S2 - GI/Abdominal Exam GI & Abdominal Exam: Soft, Diminished Bowel Sounds - Rectal Exam Rectal Exam: Deferred
--- NOTE | 2017-06-27 01:25 | OP ---
PROCEDURE DATE: 06/26/2017 PREOPERATIVE DIAGNOSES: 1. Recurrent diverticulitis. 2. Diverticulosis. 3. Abdominal pain. 4. Morbid obesity. 5. Possible postoperative adhesion due to previous hysterectomy, cholecystectomy, and appendectomy. POSTOPERATIVE DIAGNOSES: 1. Recurrent diverticulitis. 2. Diverticulosis. 3. Abdominal pain. 4. Morbid obesity. 5. Extensive Postoperative adhesion due to previous hysterectomy, cholecystectomy, and appendectomy. PROCEDURES DONE: 1. Robotic splenic flexure mobilization. 2. Laparoscopic extensive lysis of adhesions. 3. Laparoscopic sigmoidectomy, converted to open. 4. ON-Q pain catheter pump placement, bilateral. SURGEON: Timothy Xavier MD ASSISTANTS: MIKIE Goetz and Elbert Peña, PGY-2 resident. TYPE OF ANESTHESIA: General endotracheal tube anesthesia. ESTIMATED BLOOD LOSS: Around 200 mL. DRAINS: A 19-Cameroonian Hans drain was placed in the pelvis. PATHOLOGY: The sigmoid colon was sent for the pathology with two donuts. COMPLICATIONS: None. INTRAOPERATIVE FINDINGS: The patient had morbid obesity with extensive adhesions all over abdomen due to the previous hysterectomy, previous cholecystectomy and appendectomy; and approximately 80 to 120 minutes' time was spent just for lysis of adhesion. The patient had extensive inflammation of the sigmoid colon. The descending colon and the transverse colon as well as the right colon appeared to be normal with diverticulosis, and the sigmoid colon was firmly adhered to the lateral abdominal wall as well as in the pelvis. DESCRIPTION OF PROCEDURE: On intraoperative steps, this is a 52-year-old female who was diagnosed with recurrent diverticulitis, and the patient had a fourth attack of diverticulitis. The patient was admitted with abdominal pain. CT scan was showing the diverticulosis. With the given history of recurrent diverticulitis, the patient was consented for laparoscopic-assisted robotic left hemicolectomy, possible ostomy. The patient was brought to the OR, placed supine on operating table. After induction of the anesthesia, abdomen was prepped and draped in the usual sterile fashion. The Klein catheter and NG tube were placed. The patient was placed in a lithotomy position in the stirrups and abdomen was prepped and draped in the usual sterile fashion. A supraumbilical vertical incision was made, peritoneal cavity was entered, and the pneumo was created. The patient was found to have extensive adhesion in the sigmoid as well as in the lower abdomen. Now laparoscopically, with the LigaSure, extensive lysis of adhesion was done. After that, the robotic port was placed. Robot was brought in. The omentum was resected from the transverse colon, and lesser sac was entered. The splenic flexure mobilization was done partially with the robot. Now the procedure was converted to laparoscopic and remaining splenic flexure mobilization was done. The sigmoid was also mobilized. The sigmoid appeared to be extremely thickened and edematous. There was no sign of the diverticulitis at present, but it seemed like the patient had recurrent attacks of diverticulitis in the sigmoid colon. The sigmoid colon was resected at the rectosigmoid junction and at the proximal sigmoid. Descending colon to rectum anastomosis was done with the EEA, and anastomosis was viable, without any tension, with a good blood supply. The both the donuts were intact after anastomosis. Leak test was done multiple times, and there was no air leak identified. After proper hemostasis, the abdominal cavity was irrigated and a 19-Cameroonian Hans drain was placed, and Hans drain was secured to the skin. Abdominal cavity was closed in two layers; the fascia with #1 loop PDS, skin with moo; and all the port sites also. Dry sterile dressing was applied. The ON-Q pain catheter pump was placed before closing the abdomen in the port site, and Marcaine was injected. It was connected to the above after completion of the procedure. The patient tolerated the procedure well. Count of the instruments and gauze was correct. There was no apparent complications. The patient was extubated in the OR, sent to the Postanesthesia Care Unit in stable condition. Timothy Xavier MD JOZEF
[2017-06-27] MEDS: Clindamycin 600mg/50ml NS 600 MG/50 ML BAG IVPB SCH ×3 (06:15→22:49)
[2017-06-27 06:43] LABS: BASO % 0.3 % (0.0-2.0); HEMATOCRIT 34.4 % (34.0-47.0); LYMPH # 1.1 K/uL (1.0-4.3); LYMPH % 7.3 % (20.0-40.0); MEAN CELL VOLUME 90.9 fL (81.0-99.0); MEAN PLATELET VOLUME 7.7 fL (7.2-11.7); MONO # 0.8 K/uL (0.0-0.8); MONO % 5.5 % (0.0-10.0); PLATELET COUNT 403 K/uL (130-400); RED CELL DISTRIBUTION WIDTH 14.5 % (11.5-14.5); WHITE BLOOD COUNT 14.8 K/uL (4.8-10.8)
[2017-06-27 06:55] LABS: BLOOD UREA NITROGEN 10 mg/dL (7-17); CALCIUM 7.7 mg/dl (8.6-10.4); CARBON DIOXIDE 27 mmol/L (22-30); CHLORIDE 99 mmol/L (98-107); GFR AFRICAN-AMERICAN > 60; GLUCOSE,RANDOM 136 mg/dL (65-105); MAGNESIUM 1.2 mg/dL (1.6-2.3); PHOSPHOROUS 4.8 mg/dL (2.5-4.5); POTASSIUM 4.2 mmol/L (3.6-5.2); SODIUM 132 mmol/L (132-148); TOTAL PROTEIN 6.6 g/dL (6.3-8.3)
[2017-06-27 06:56] LABS: ALKALINE PHOSPHATASE 42 U/L (38-126); ALT/SGPT 47 U/L (9-52); AST/SGOT 28 U/L (14-36); BILIRUBIN,TOTAL 0.4 mg/dL (0.2-1.3)
[2017-06-27] MEDS: Levothyroxine 50 MCG TAB PO SCH (07:20)
[2017-06-27] MEDS ORDERED: Magnesium Sulfate 1 gm in D5W 1 GM/100 ML BAG IVPB ONE (08:05)
--- NOTE | 2017-06-27 08:19 | CP.PCM.PN ---
<Franck Niño - Last Filed: 06/27/17 08:08> Subjective - Date & Time of Evaluation Date of Evaluation: 06/27/17 Time of Evaluation: 08:08 - Subjective Subjective: General Surgery: Dr Xavier Pt S&E. KAREN. Pt is POD#1 s/p robotic/laparoscopic sigmoid resection. Pt states pain is well controlled. Denies F/C, N/V. Not yet passing flatus. No complaints. Using incentive spirometer. NGT: 100 cc billous Ramirez: >2.2Kcc urine Objective - Vital Signs/Intake and Output Vital Signs (last 24 hours): Temp Pulse Resp BP Pulse Ox 97.9 F 90 20 98/64 L 98 06/27/17 04:35 06/27/17 04:35 06/27/17 04:35 06/27/17 04:35 06/27/17 04:35 Intake and Output: 06/27/17 06/27/17 06:59 18:59 Intake Total 975 Output Total 955 Balance 20 - Medications Medications: Current Medications Atenolol (Tenormin) 50 mg PO DAILY [facility] Last Admin: 06/26/17 09:14 Dose: Not Given Diphenhydramine HCl (Benadryl) 25 mg IVP Q6 PRN PRN Reason: Itching / Pruritus Enoxaparin Sodium (Lovenox) 40 mg SC DAILY [facility] Last Admin: 06/24/17 09:57 Dose: 40 mg Hydrochlorothiazide (Microzide) 12.5 mg PO DAILY [facility] Last Admin: 06/26/17 09:13 Dose: Not Given Hydromorphone HCl (Dilaudid) 0.5 mg IVP Q3H PRN PRN Reason: Pain, moderate (4-7) Clindamycin Phosphate (Cleocin In Normal Saline) 600 mg in 50 mls @ 102 mls/hr IVPB Q8H [facility] Last Admin: 06/27/17 06:15 Dose: 102 mls/hr Lactated Ringer's (Lactated Ringer's) 1,000 mls @ 125 mls/hr IV .Q8H [facility] Last Admin: 06/26/17 22:03 Dose: 125 mls/hr Piperacillin Sod/Tazobactam Sod (Zosyn 3.375 Gm Iv Premix) 3.375 gm in 50 mls @ 200 mls/hr IVPB Q6H [facility] Last Admin: 06/26/17 21:28 Dose: 200 mls/hr BUPIVACAINE 0.125%/0.9% NACL (Bupivacaine-Ns 0.125% On-Q Bone Cooking Operator) 600 mls @ 4 mls/ hr IJ ONCE ONE Stop: 07/02/17 19:13 Last Admin: 06/26/17 14:15 Dose: 6 mls Magnesium Sulfate/Dextrose (Magnesium Sulfate 1 Gm/100 Ml D5w) 1 gm in 100 mls @ 200 mls/hr IVPB ONCE ONE Stop: 06/27/17 08:34 Levothyroxine Sodium (Synthroid) 50 mcg PO DAILY@0630 [facility] Last Admin: 06/27/17 07:20 Dose: Not Given Metformin HCl (Glucophage) 500 mg PO BID [facility] Last Admin: 06/26/17 17:31 Dose: Not Given Naloxone HCl (Narcan) 0.1 mg IVP Q2M PRN PRN Reason: apnea Ondansetron HCl (Zofran Inj) 4 mg IVP Q4 PRN PRN Reason: Nausea/Vomiting Last Admin: 06/26/17 05:52 Dose: 4 mg Pantoprazole Sodium (Protonix Inj) 40 mg IVP DAILY [facility] Last Admin: 06/26/17 09:14 Dose: Not Given - Labs Labs: 06/27/17 06:28 06/27/17 06:28 PT 11.8 SECONDS (9.7-12.2) 06/23/17 17:13 INR 1.1 06/23/17 17:13 APTT 26 SECONDS (21-34) 06/23/17 17:13 - Constitutional Appears: Non-toxic, No Acute Distress - ENT Exam ENT Exam: Mucous Membranes Moist - Respiratory Exam Respiratory Exam: absent: Accessory Muscle Use, Respiratory Distress - Cardiovascular Exam Cardiovascular Exam: REGULAR RHYTHM. absent: Tachycardia - GI/Abdominal Exam GI & Abdominal Exam: Soft, Tenderness (post-op and appropriate). absent: Distended, Firm, Guarding, Rigid Additional comments: dressing c/d/i boris serosanguinous - Extremities Exam Extremities Exam: absent: Pedal Edema - Neurological Exam Neurological Exam: Alert, Awake, Oriented x3 - Psychiatric Exam Psychiatric exam: Normal Affect, Normal Mood - Skin Skin Exam: Normal Color, Warm Assessment and Plan - Assessment and Plan (Free Text) Assessment: 52F POD#1 s/p robotic sigmoid resection Plan: d/c ramirez d/c NGT d/c FLEET OPERATIONS MANAGER , start dilaudid 0.5mg Q3H start CLD cont abx start lvx OOB and ambulate incentive spirometer Mg replaced d/w Dr Morenita Niño, PGY3 <Timothy Xavier B - Last Filed: 06/27/17 18:00> Objective - Vital Signs/Intake and Output Vital Signs (last 24 hours): Temp Pulse Resp BP Pulse Ox 97.1 F L 90 18 105/68 94 L 06/27/17 07:45 06/27/17 07:45 06/27/17 07:45 06/27/17 07:45 06/27/17 07:45 Intake and Output: 06/27/17 06/27/17 06:59 18:59 Intake Total 975 1350 Output Total 955 20 Balance 20 1330 - Medications Medications: Current Medications Atenolol (Tenormin) 50 mg PO DAILY [facility] Last Admin: 06/27/17 11:30 Dose: Not Given Diphenhydramine HCl (Benadryl) 25 mg IVP Q6 PRN PRN Reason: Itching / Pruritus Enoxaparin Sodium (Lovenox) 40 mg SC DAILY [facility] Last Admin: 06/27/17 11:32 Dose: 40 mg Hydrochlorothiazide (Microzide) 12.5 mg PO DAILY [facility] Last Admin: 06/27/17 11:30 Dose: Not Given Hydromorphone HCl (Dilaudid) 0.5 mg IVP Q3 PRN PRN Reason: breakthrough pain Hydromorphone HCl (Dilaudid) 1 mg IVP Q3H PRN PRN Reason: Pain, severe (8-10) Clindamycin Phosphate (Cleocin In Normal Saline) 600 mg in 50 mls @ 102 mls/hr IVPB Q8H [facility] Last Admin: 06/27/17 14:32 Dose: 102 mls/hr Lactated Ringer's (Lactated Ringer's) 1,000 mls @ 125 mls/hr IV .Q8H [facility] Last Admin: 06/27/17 08:30 Dose: 125 mls/hr Piperacillin Sod/Tazobactam Sod (Zosyn 3.375 Gm Iv Premix) 3.375 gm in 50 mls @ 200 mls/hr IVPB Q6H [facility] Last Admin: 06/27/17 11:33 Dose: 200 mls/hr BUPIVACAINE 0.125%/0.9% NACL (Bupivacaine-Ns 0.125% On-Q Bone Cooking Operator) 600 mls @ 4 mls/ hr IJ ONCE ONE Stop: 07/02/17 19:13 Last Admin: 06/26/17 14:15 Dose: 6 mls Levothyroxine Sodium (Synthroid) 50 mcg PO DAILY@0630 [facility] Last Admin: 06/27/17 07:20 Dose: Not Given Metformin HCl (Glucophage) 500 mg PO BID [facility] Last Admin: 06/27/17 11:32 Dose: 500 mg Naloxone HCl (Narcan) 0.1 mg IVP Q2M PRN PRN Reason: apnea Ondansetron HCl (Zofran Inj) 4 mg IVP Q4 PRN PRN Reason: Nausea/Vomiting Last Admin: 06/26/17 05:52 Dose: 4 mg Oxycodone/Acetaminophen (Percocet 5/325 Mg Tab) 1 tab PO Q4H PRN PRN Reason: Pain, moderate (4-7) Stop: 06/30/17 17:45 Pantoprazole Sodium (Protonix Inj) 40 mg IVP DAILY [facility] Last Admin: 06/27/17 11:32 Dose: 40 mg - Labs Labs: 06/27/17 06:28 06/27/17 06:28 PT 11.8 SECONDS (9.7-12.2) 06/23/17 17:13 INR 1.1 06/23/17 17:13 APTT 26 SECONDS (21-34) 06/23/17 17:13 Attending/Attestation - Attestation I have personally seen and examined this patient.: Yes I have fully participated in the care of the patient.: Yes I have reviewed all pertinent clinical information, including history, physical exam and plan: Yes Notes (Text): Pt was seen and examined at bedside Agree with above note and assessment Pt is s/p Lap ASHU and LAP/Robotic Sigmoidectomy OOB to walk DVT prophylaxix C.w IV antibiotic for intra abdominal contamination Plan d.w pt in detail
[2017-06-27] MEDS: Lactated Ringer's 1,000 ML IV SCH ×3 (08:30→22:50)
[2017-06-27] MEDS: HYDROmorphone 0.5 mg/0.5 ml ISec IVP PRN ×4 (08:30→21:39)
[2017-06-27 08:39] LABS: NEUTROPHIL 76 % (50-75); TOTAL CELLS COUNTED 100
--- NOTE | 2017-06-27 09:33 | CP.PCM.PN ---
Subjective - Date & Time of Evaluation Date of Evaluation: 06/27/17 Time of Evaluation: 09:33 - Subjective Subjective: PGY2 Medicine Note for Dr. En Patel; all management as per Dr. En Patel This patient was seen and examined at bedside this AM; states she is having flatus; denies any other symptoms; denies fevers/chills, WHEELER, CP, SOb, abdominal pain, N/V/D, dysuria/freq/urg, or lower extremity pain/swelling. Objective - Vital Signs/Intake and Output Vital Signs (last 24 hours): Temp Pulse Resp BP Pulse Ox 97.1 F L 90 18 105/68 94 L 06/27/17 07:45 06/27/17 07:45 06/27/17 07:45 06/27/17 07:45 06/27/17 07:45 Intake and Output: 06/27/17 06/27/17 06:59 18:59 Intake Total 975 Output Total 955 Balance 20 - Medications Medications: Current Medications Atenolol (Tenormin) 50 mg PO DAILY [facility] Last Admin: 06/26/17 09:14 Dose: Not Given Diphenhydramine HCl (Benadryl) 25 mg IVP Q6 PRN PRN Reason: Itching / Pruritus Enoxaparin Sodium (Lovenox) 40 mg SC DAILY [facility] Last Admin: 06/24/17 09:57 Dose: 40 mg Hydrochlorothiazide (Microzide) 12.5 mg PO DAILY [facility] Last Admin: 06/26/17 09:13 Dose: Not Given Hydromorphone HCl (Dilaudid) 0.5 mg IVP Q3H PRN PRN Reason: Pain, moderate (4-7) Last Admin: 06/27/17 08:30 Dose: 0.5 mg Clindamycin Phosphate (Cleocin In Normal Saline) 600 mg in 50 mls @ 102 mls/hr IVPB Q8H [facility] Last Admin: 06/27/17 06:15 Dose: 102 mls/hr Lactated Ringer's (Lactated Ringer's) 1,000 mls @ 125 mls/hr IV .Q8H [facility] Last Admin: 06/27/17 08:30 Dose: 125 mls/hr Piperacillin Sod/Tazobactam Sod (Zosyn 3.375 Gm Iv Premix) 3.375 gm in 50 mls @ 200 mls/hr IVPB Q6H [facility] Last Admin: 06/26/17 21:28 Dose: 200 mls/hr BUPIVACAINE 0.125%/0.9% NACL (Bupivacaine-Ns 0.125% On-Q Technical Sales Associate) 600 mls @ 4 mls/ hr IJ ONCE ONE Stop: 07/02/17 19:13 Last Admin: 06/26/17 14:15 Dose: 6 mls Levothyroxine Sodium (Synthroid) 50 mcg PO DAILY@0630 [facility] Last Admin: 06/27/17 07:20 Dose: Not Given Metformin HCl (Glucophage) 500 mg PO BID [facility] Last Admin: 06/26/17 17:31 Dose: Not Given Naloxone HCl (Narcan) 0.1 mg IVP Q2M PRN PRN Reason: apnea Ondansetron HCl (Zofran Inj) 4 mg IVP Q4 PRN PRN Reason: Nausea/Vomiting Last Admin: 06/26/17 05:52 Dose: 4 mg Pantoprazole Sodium (Protonix Inj) 40 mg IVP DAILY [facility] Last Admin: 06/26/17 09:14 Dose: Not Given - Labs Labs: 06/27/17 06:28 06/27/17 06:28 PT 11.8 SECONDS (9.7-12.2) 06/23/17 17:13 INR 1.1 06/23/17 17:13 APTT 26 SECONDS (21-34) 06/23/17 17:13 - Constitutional Appears: Non-toxic (NGT in place) - Head Exam Head Exam: ATRAUMATIC - Eye Exam Eye Exam: EOMI Pupil Exam: PERRL - ENT Exam ENT Exam: Mucous Membranes Moist - Neck Exam Neck Exam: Full ROM - Respiratory Exam Respiratory Exam: Clear to Ausculation Bilateral, NORMAL BREATHING PATTERN. absent: Rales, Rhonchi, Wheezes - Cardiovascular Exam Cardiovascular Exam: REGULAR RHYTHM - GI/Abdominal Exam GI & Abdominal Exam: Soft, Normal Bowel Sounds - Extremities Exam Extremities Exam: absent: Calf Tenderness - Back Exam Back Exam: NORMAL INSPECTION. absent: CVA tenderness (L), CVA tenderness (R) - Neurological Exam Neurological Exam: Alert, Awake, Oriented x3 - Skin Skin Exam: Warm Assessment and Plan - Assessment and Plan (Free Text) Assessment: Acute Diverticulitis, recurrent; resolved now with colectomy Three previous episodes Afebrile, WBC WNL NPO for colectomy this AM CT A/P (06/23/17): numerous left colonic and sigmoid diverticuli, w/o acute inflammation Taking Cipro/Flagyl as OPDX (Total of 9 days before coming to hospital) Dr. Schwab, GI ergonomics consultant - EGD/Colonoscopy as OPDX (06/04/17): Gastritis/Diverticulosis in entire colon Dr. Xavier, Gen surgery - pt consents -> surgery 06/26, bowel prep 06/25-->surgery today Clindamycin 600mg IV Q8H (Day 3) Zosyn 3.375 gm IV Q6H (day 2) Zofran 4mg IV q4H PRN Toradol 30mg IV Q6H PRN, mild pain Morphine 2mg IV Q4H PRN, moderate pain LR @ 125cc/hr -advance diet as per surgery -NGT out 06/27 -PT/OT Out of bed to chair; encourage activity -incentive spirometry HTN;chronic Well-controlled Microzide 12.5mg PO daily Atenolol 50mg PO Daily T2DM;chronic Accuchecks Hypoglycemia protocl Metformin 500mg PO BID -A1C 7.2 -Lipid panel: LDL 52, HDL 48, T chol 121, Tri 72 Hypothyroidism;chronic Synthroid 50 mcg PO QAM - TSH/Free T4 WNL Hematuria UA: 1+ blood, RBC 5 - will repeat UA Prophylaxis SCDs Lovenox 40mg SC daily (HOLD, will restart when okayed by surgery) Protonix 40mg IV Daily Dispo: Pending surgical sign off s/p colectomy -advance diet as per surgery -PT/OT -Out of bed to chair, and walking if can tolerate with assistance All medical management per
--- NOTE | 2017-06-27 10:51 | CP.PCM.PN ---
<Promise Myrick - Last Filed: 06/27/17 10:54> Subjective - Date & Time of Evaluation Date of Evaluation: 06/27/17 Time of Evaluation: 06:50 - Subjective Subjective: GI Fellow PGY4 Progress Note Pt seen and evaluated at bedside, pt doing well s/p left sigmoidectomy. Pt's pain is controlled with GRADER TENDER pump, denies nausea or vomiting with NGT with bilious outpt. Pt is not passing gas, no BM. ROS: A 12pt ROS was negative except as above. Objective - Vital Signs/Intake and Output Vital Signs (last 24 hours): Temp Pulse Resp BP Pulse Ox 97.1 F L 90 18 105/68 94 L 06/27/17 07:45 06/27/17 07:45 06/27/17 07:45 06/27/17 07:45 06/27/17 07:45 Intake and Output: 06/27/17 06/27/17 06:59 18:59 Intake Total 975 Output Total 955 Balance 20 - Medications Medications: Current Medications Atenolol (Tenormin) 50 mg PO DAILY [facility] Last Admin: 06/26/17 09:14 Dose: Not Given Diphenhydramine HCl (Benadryl) 25 mg IVP Q6 PRN PRN Reason: Itching / Pruritus Enoxaparin Sodium (Lovenox) 40 mg SC DAILY [facility] Last Admin: 06/24/17 09:57 Dose: 40 mg Hydrochlorothiazide (Microzide) 12.5 mg PO DAILY [facility] Last Admin: 06/26/17 09:13 Dose: Not Given Hydromorphone HCl (Dilaudid) 0.5 mg IVP Q3H PRN PRN Reason: Pain, moderate (4-7) Last Admin: 06/27/17 08:30 Dose: 0.5 mg Clindamycin Phosphate (Cleocin In Normal Saline) 600 mg in 50 mls @ 102 mls/hr IVPB Q8H [facility] Last Admin: 06/27/17 06:15 Dose: 102 mls/hr Lactated Ringer's (Lactated Ringer's) 1,000 mls @ 125 mls/hr IV .Q8H [facility] Last Admin: 06/27/17 08:30 Dose: 125 mls/hr Piperacillin Sod/Tazobactam Sod (Zosyn 3.375 Gm Iv Premix) 3.375 gm in 50 mls @ 200 mls/hr IVPB Q6H [facility] Last Admin: 06/26/17 21:28 Dose: 200 mls/hr BUPIVACAINE 0.125%/0.9% NACL (Bupivacaine-Ns 0.125% On-Q Healthcare Translator) 600 mls @ 4 mls/ hr IJ ONCE ONE Stop: 07/02/17 19:13 Last Admin: 06/26/17 14:15 Dose: 6 mls Levothyroxine Sodium (Synthroid) 50 mcg PO DAILY@0630 [facility] Last Admin: 06/27/17 07:20 Dose: Not Given Metformin HCl (Glucophage) 500 mg PO BID [facility] Last Admin: 06/26/17 17:31 Dose: Not Given Naloxone HCl (Narcan) 0.1 mg IVP Q2M PRN PRN Reason: apnea Ondansetron HCl (Zofran Inj) 4 mg IVP Q4 PRN PRN Reason: Nausea/Vomiting Last Admin: 06/26/17 05:52 Dose: 4 mg Pantoprazole Sodium (Protonix Inj) 40 mg IVP DAILY [facility] Last Admin: 06/26/17 09:14 Dose: Not Given - Labs Labs: 06/27/17 06:28 06/27/17 06:28 PT 11.8 SECONDS (9.7-12.2) 06/23/17 17:13 INR 1.1 06/23/17 17:13 APTT 26 SECONDS (21-34) 06/23/17 17:13 - Constitutional Appears: Non-toxic, No Acute Distress - Head Exam Head Exam: ATRAUMATIC, NORMAL INSPECTION, NORMOCEPHALIC - Eye Exam Eye Exam: EOMI, Normal appearance, PERRL Pupil Exam: PERRL - ENT Exam ENT Exam: Mucous Membranes Moist, Normal Exam - Neck Exam Neck Exam: Full ROM, Normal Inspection - Respiratory Exam Respiratory Exam: NORMAL BREATHING PATTERN - Cardiovascular Exam Cardiovascular Exam: REGULAR RHYTHM, RRR - GI/Abdominal Exam GI & Abdominal Exam: Soft, Tenderness, Normal Bowel Sounds. absent: Distended Additional comments: dressing c/d/i boris drain with serosanguinous outpt - Rectal Exam Rectal Exam: Deferred - Extremities Exam Extremities Exam: Full ROM, Normal Inspection - Back Exam Back Exam: NORMAL INSPECTION - Neurological Exam Neurological Exam: Alert, Awake, Oriented x3 - Psychiatric Exam Psychiatric exam: Normal Affect, Normal Mood - Skin Skin Exam: Dry, Intact, Normal Color, Warm Assessment and Plan - Assessment and Plan (Free Text) Assessment: This is a 52yF presenting with abdominal pain. 1. Diverticulitis, recurrent s/p left sigmoidectomy POD#1 Plan: -Continue supportive care with IVF hydration, pain control, anti-emetics -Continue IV abx -Advance diet per surgical recommendations -Can dc NGT once bilious outpt deceases, defer to surgery -Will continue to follow closely <Ivan Serrato - Last Filed: 06/27/17 17:51> Objective - Vital Signs/Intake and Output Vital Signs (last 24 hours): Temp Pulse Resp BP Pulse Ox 97.1 F L 90 18 105/68 94 L 06/27/17 07:45 06/27/17 07:45 06/27/17 07:45 06/27/17 07:45 06/27/17 07:45 Intake and Output: 06/27/17 06/27/17 06:59 18:59 Intake Total 975 1350 Output Total 955 20 Balance 20 1330 - Medications Medications: Current Medications Atenolol (Tenormin) 50 mg PO DAILY [facility] Last Admin: 06/27/17 11:30 Dose: Not Given Diphenhydramine HCl (Benadryl) 25 mg IVP Q6 PRN PRN Reason: Itching / Pruritus Enoxaparin Sodium (Lovenox) 40 mg SC DAILY [facility] Last Admin: 06/27/17 11:32 Dose: 40 mg Hydrochlorothiazide (Microzide) 12.5 mg PO DAILY [facility] Last Admin: 06/27/17 11:30 Dose: Not Given Hydromorphone HCl (Dilaudid) 0.5 mg IVP Q3 PRN PRN Reason: breakthrough pain Hydromorphone HCl (Dilaudid) 1 mg IVP Q3H PRN PRN Reason: Pain, severe (8-10) Clindamycin Phosphate (Cleocin In Normal Saline) 600 mg in 50 mls @ 102 mls/hr IVPB Q8H [facility] Last Admin: 06/27/17 14:32 Dose: 102 mls/hr Lactated Ringer's (Lactated Ringer's) 1,000 mls @ 125 mls/hr IV .Q8H [facility] Last Admin: 06/27/17 08:30 Dose: 125 mls/hr Piperacillin Sod/Tazobactam Sod (Zosyn 3.375 Gm Iv Premix) 3.375 gm in 50 mls @ 200 mls/hr IVPB Q6H [facility] Last Admin: 06/27/17 11:33 Dose: 200 mls/hr BUPIVACAINE 0.125%/0.9% NACL (Bupivacaine-Ns 0.125% On-Q Healthcare Translator) 600 mls @ 4 mls/ hr IJ ONCE ONE Stop: 07/02/17 19:13 Last Admin: 06/26/17 14:15 Dose: 6 mls Levothyroxine Sodium (Synthroid) 50 mcg PO DAILY@0630 [facility] Last Admin: 06/27/17 07:20 Dose: Not Given Metformin HCl (Glucophage) 500 mg PO BID [facility] Last Admin: 06/27/17 11:32 Dose: 500 mg Naloxone HCl (Narcan) 0.1 mg IVP Q2M PRN PRN Reason: apnea Ondansetron HCl (Zofran Inj) 4 mg IVP Q4 PRN PRN Reason: Nausea/Vomiting Last Admin: 06/26/17 05:52 Dose: 4 mg Oxycodone/Acetaminophen (Percocet 5/325 Mg Tab) 1 tab PO Q4H PRN PRN Reason: Pain, moderate (4-7) Stop: 06/30/17 17:45 Pantoprazole Sodium (Protonix Inj) 40 mg IVP DAILY [facility] Last Admin: 06/27/17 11:32 Dose: 40 mg - Labs Labs: 06/27/17 06:28 06/27/17 06:28 PT 11.8 SECONDS (9.7-12.2) 06/23/17 17:13 INR 1.1 06/23/17 17:13 APTT 26 SECONDS (21-34) 06/23/17 17:13 Attending/Attestation - Attestation I have personally seen and examined this patient.: Yes I have fully participated in the care of the patient.: Yes I have reviewed all pertinent clinical information, including history, physical exam and plan: Yes Notes (Text): 06/27/17 17:49 I have seen and examined patient with GI fellow. No acute events overnight, she complains of pain at surgical incision site but denies nausea, vomiting, fever/chills. 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 She is not passing gas yet, remains NPO. Review of vitals from today are normal. Abdominal pain Acute diverticulitis, s/p sigmoidectomy and lysis of adhesions yesterday - NPO - Continue with antibiotic therapy - Monitor NGT output - Pain control - Further plan as per surgical team. No further planned GI intervention, will sign off case. Following hospital discharge, patient should follow up with Dr. Schwab, please reconsult as necessary thank you.
[2017-06-27] MEDS: Enoxaparin 40 mg Syringe SC SCH (11:32)
[2017-06-27] MEDS: Piperacill/Tazo 3.375gm in Dex 3.375 GM/50 ML BAG IVPB SCH ×3 (11:33→21:33)
--- NOTE | 2017-06-27 17:41 | CP.PCM.PN ---
Subjective - Date & Time of Evaluation Date of Evaluation: 06/27/17 Time of Evaluation: 10:00 - Subjective Subjective: clinically same Objective - Vital Signs/Intake and Output Vital Signs (last 24 hours): Temp Pulse Resp BP Pulse Ox 97.1 F L 90 18 105/68 94 L 06/27/17 07:45 06/27/17 07:45 06/27/17 07:45 06/27/17 07:45 06/27/17 07:45 Intake and Output: 06/27/17 06/27/17 06:59 18:59 Intake Total 975 1350 Output Total 955 20 Balance 20 1330 - Medications Medications: Current Medications Atenolol (Tenormin) 50 mg PO DAILY [facility] Last Admin: 06/27/17 11:30 Dose: Not Given Diphenhydramine HCl (Benadryl) 25 mg IVP Q6 PRN PRN Reason: Itching / Pruritus Enoxaparin Sodium (Lovenox) 40 mg SC DAILY [facility] Last Admin: 06/27/17 11:32 Dose: 40 mg Hydrochlorothiazide (Microzide) 12.5 mg PO DAILY [facility] Last Admin: 06/27/17 11:30 Dose: Not Given Hydromorphone HCl (Dilaudid) 0.5 mg IVP Q3H PRN PRN Reason: Pain, moderate (4-7) Last Admin: 06/27/17 17:09 Dose: 0.5 mg Clindamycin Phosphate (Cleocin In Normal Saline) 600 mg in 50 mls @ 102 mls/hr IVPB Q8H [facility] Last Admin: 06/27/17 14:32 Dose: 102 mls/hr Lactated Ringer's (Lactated Ringer's) 1,000 mls @ 125 mls/hr IV .Q8H [facility] Last Admin: 06/27/17 08:30 Dose: 125 mls/hr Piperacillin Sod/Tazobactam Sod (Zosyn 3.375 Gm Iv Premix) 3.375 gm in 50 mls @ 200 mls/hr IVPB Q6H [facility] Last Admin: 06/27/17 11:33 Dose: 200 mls/hr BUPIVACAINE 0.125%/0.9% NACL (Bupivacaine-Ns 0.125% On-Q Head Librarian) 600 mls @ 4 mls/ hr IJ ONCE ONE Stop: 07/02/17 19:13 Last Admin: 06/26/17 14:15 Dose: 6 mls Levothyroxine Sodium (Synthroid) 50 mcg PO DAILY@0630 [facility] Last Admin: 06/27/17 07:20 Dose: Not Given Metformin HCl (Glucophage) 500 mg PO BID [facility] Last Admin: 06/27/17 11:32 Dose: 500 mg Naloxone HCl (Narcan) 0.1 mg IVP Q2M PRN PRN Reason: apnea Ondansetron HCl (Zofran Inj) 4 mg IVP Q4 PRN PRN Reason: Nausea/Vomiting Last Admin: 06/26/17 05:52 Dose: 4 mg Pantoprazole Sodium (Protonix Inj) 40 mg IVP DAILY [facility] Last Admin: 06/27/17 11:32 Dose: 40 mg - Labs Labs: 06/27/17 06:28 06/27/17 06:28 PT 11.8 SECONDS (9.7-12.2) 06/23/17 17:13 INR 1.1 06/23/17 17:13 APTT 26 SECONDS (21-34) 06/23/17 17:13
[2017-06-27] MEDS ORDERED: HYDROmorphone 1 mg/ml ISec IVP STA (17:42)
[2017-06-27] MEDS ORDERED: Oxycodone/Acetaminophen 5/325 mg Tab PO PRN (17:44)
[2017-06-28] MEDS: HYDROmorphone 0.5 mg/0.5 ml ISec IVP PRN ×5 (02:57→21:18)
[2017-06-28] MEDS: Lactated Ringer's 1,000 ML IV SCH ×4 (04:52→23:50)
[2017-06-28] MEDS: Piperacill/Tazo 3.375gm in Dex 3.375 GM/50 ML BAG IVPB SCH ×4 (04:52→21:19)
[2017-06-28] MEDS: Clindamycin 600mg/50ml NS 600 MG/50 ML BAG IVPB SCH ×3 (06:22→22:46)
[2017-06-28] MEDS: Levothyroxine 50 MCG TAB PO SCH (06:22)
--- NOTE | 2017-06-28 07:13 | CP.PCM.PN ---
Subjective - Date & Time of Evaluation Date of Evaluation: 06/28/17 Time of Evaluation: 09:15 - Subjective Subjective: Medicine note- 's service Patient was seen and examined at bedside. Patient reports no acute complaints at this time. She says her pain is well controlled. She is trying to eat her liquid diet. No BM yet. RACHELE drain had ~ 50cc at time of examinatino, serosanguinous fluid. No events overnight, per nursing. Objective - Vital Signs/Intake and Output Vital Signs (last 24 hours): Temp Pulse Resp BP Pulse Ox 97.3 F L 82 20 99/64 L 97 06/27/17 23:05 06/27/17 23:05 06/27/17 23:05 06/27/17 23:05 06/27/17 23:05 Intake and Output: 06/28/17 06/28/17 06:59 18:59 Intake Total 2145 Output Total 1005 Balance 1140 - Medications Medications: Current Medications Atenolol (Tenormin) 50 mg PO DAILY [facility] Last Admin: 06/27/17 11:30 Dose: Not Given Diphenhydramine HCl (Benadryl) 25 mg IVP Q6 PRN PRN Reason: Itching / Pruritus Enoxaparin Sodium (Lovenox) 40 mg SC DAILY [facility] Last Admin: 06/27/17 11:32 Dose: 40 mg Hydrochlorothiazide (Microzide) 12.5 mg PO DAILY [facility] Last Admin: 06/27/17 11:30 Dose: Not Given Hydromorphone HCl (Dilaudid) 0.5 mg IVP Q3 PRN PRN Reason: breakthrough pain Last Admin: 06/28/17 02:57 Dose: 0.5 mg Hydromorphone HCl (Dilaudid) 1 mg IVP Q3H PRN PRN Reason: Pain, severe (8-10) Last Admin: 06/28/17 05:53 Dose: 1 mg Clindamycin Phosphate (Cleocin In Normal Saline) 600 mg in 50 mls @ 102 mls/hr IVPB Q8H [facility] Last Admin: 06/28/17 06:22 Dose: 102 mls/hr Lactated Ringer's (Lactated Ringer's) 1,000 mls @ 125 mls/hr IV .Q8H [facility] Last Admin: 06/28/17 04:52 Dose: 125 mls/hr Piperacillin Sod/Tazobactam Sod (Zosyn 3.375 Gm Iv Premix) 3.375 gm in 50 mls @ 200 mls/hr IVPB Q6H [facility] Last Admin: 06/28/17 04:52 Dose: 200 mls/hr BUPIVACAINE 0.125%/0.9% NACL (Bupivacaine-Ns 0.125% On-Q Magistrate) 600 mls @ 4 mls/ hr IJ ONCE ONE Stop: 07/02/17 19:13 Last Admin: 06/26/17 14:15 Dose: 6 mls Levothyroxine Sodium (Synthroid) 50 mcg PO DAILY@0630 [facility] Last Admin: 06/28/17 06:22 Dose: 50 mcg Metformin HCl (Glucophage) 500 mg PO BID [facility] Last Admin: 06/27/17 18:30 Dose: Not Given Naloxone HCl (Narcan) 0.1 mg IVP Q2M PRN PRN Reason: apnea Ondansetron HCl (Zofran Inj) 4 mg IVP Q4 PRN PRN Reason: Nausea/Vomiting Last Admin: 06/26/17 05:52 Dose: 4 mg Oxycodone/Acetaminophen (Percocet 5/325 Mg Tab) 1 tab PO Q4H PRN PRN Reason: Pain, moderate (4-7) Stop: 06/30/17 17:45 Pantoprazole Sodium (Protonix Inj) 40 mg IVP DAILY [facility] Last Admin: 06/27/17 11:32 Dose: 40 mg - Labs Labs: 06/27/17 06:28 06/27/17 06:28 PT 11.8 SECONDS (9.7-12.2) 06/23/17 17:13 INR 1.1 06/23/17 17:13 APTT 26 SECONDS (21-34) 06/23/17 17:13 - Constitutional Appears: Non-toxic, No Acute Distress - Head Exam Head Exam: ATRAUMATIC, NORMAL INSPECTION, NORMOCEPHALIC - Eye Exam Pupil Exam: NORMAL ACCOMODATION, PERRL - ENT Exam ENT Exam: Mucous Membranes Moist - Respiratory Exam Respiratory Exam: Clear to Ausculation Bilateral, NORMAL BREATHING PATTERN. absent: Prolonged Expiratory Phase, Rales, Rhonchi, Wheezes - Cardiovascular Exam Cardiovascular Exam: REGULAR RHYTHM, +S1, +S2 - GI/Abdominal Exam GI & Abdominal Exam: Soft, Tenderness, Normal Bowel Sounds. absent: Diminished Bowel Sounds, Hernia, Hypoactive Bowel Sounds - Extremities Exam Extremities Exam: Normal Capillary Refill - Neurological Exam Neurological Exam: Alert, Awake, Oriented x3 - Psychiatric Exam Psychiatric exam: Normal Affect, Normal Mood - Skin Skin Exam: Dry, Intact, Normal Color, Warm Assessment and Plan - Assessment and Plan (Free Text) Assessment: Acute Diverticulitis, recurrent; resolved now with colectomy Three previous episodes Afebrile, WBC WNL s/p sigmoidectomy on 06/26/17 CT A/P (06/23/17): numerous left colonic and sigmoid diverticuli, w/o acute inflammation Taking Cipro/Flagyl as OPDX (Total of 9 days before coming to hospital) Dr. Schwab, GI field sales consultant - EGD/Colonoscopy as OPDX (06/04/17): Gastritis/Diverticulosis in entire colon Dr. Xavier, Gen surgery Clindamycin 600mg IV Q8H (Day 4) Zosyn 3.375 gm IV Q6H (day 2) Zofran 4mg IV q4H PRN Toradol 30mg IV Q6H PRN, mild pain Morphine 2mg IV Q4H PRN, moderate pain LR @ 125cc/hr -advance diet as per surgery -NGT out 06/27 -PT/OT Out of bed to chair; encourage activity -incentive spirometry HTN;chronic Well-controlled Microzide 12.5mg PO daily Atenolol 50mg PO Daily T2DM;chronic Accuchecks Hypoglycemia protocl Metformin 500mg PO BID -A1C 7.2 -Lipid panel: LDL 52, HDL 48, T chol 121, Tri 72 Hypothyroidism;chronic Synthroid 50 mcg PO QAM - TSH/Free T4 WNL Hematuria UA: 1+ blood, RBC 5 - will repeat UA Prophylaxis SCDs Lovenox 40mg SC daily (HOLD, will restart when okayed by surgery) Protonix 40mg IV Daily Dispo: Pending surgical sign off s/p colectomy -advance diet as per surgery -PT/OT -Out of bed to chair, and walking if can tolerate with assistance All medical management per
--- NOTE | 2017-06-28 07:48 | CP.PCM.PN ---
<Franck Niño Carlos - Last Filed: 06/28/17 07:45> Subjective - Date & Time of Evaluation Date of Evaluation: 06/28/17 Time of Evaluation: 06:40 - Subjective Subjective: Gen Sx: Dr Xavier Pt S&E. Had some intermittent pain in LUQ but responded well to pain meds. Denies N/V, F/C. Tolerating liquid diet. Passing flatus. Has only been OOB to chair, awaiting physical therapy before ambulating. Using IS. Objective - Vital Signs/Intake and Output Vital Signs (last 24 hours): Temp Pulse Resp BP Pulse Ox 97.3 F L 82 20 99/64 L 97 06/27/17 23:05 06/27/17 23:05 06/27/17 23:05 06/27/17 23:05 06/27/17 23:05 Intake and Output: 06/28/17 06/28/17 06:59 18:59 Intake Total 2145 Output Total 1005 Balance 1140 - Medications Medications: Current Medications Atenolol (Tenormin) 50 mg PO DAILY [facility] Last Admin: 06/27/17 11:30 Dose: Not Given Diphenhydramine HCl (Benadryl) 25 mg IVP Q6 PRN PRN Reason: Itching / Pruritus Enoxaparin Sodium (Lovenox) 40 mg SC DAILY [facility] Last Admin: 06/27/17 11:32 Dose: 40 mg Hydrochlorothiazide (Microzide) 12.5 mg PO DAILY [facility] Last Admin: 06/27/17 11:30 Dose: Not Given Hydromorphone HCl (Dilaudid) 0.5 mg IVP Q3 PRN PRN Reason: breakthrough pain Last Admin: 06/28/17 02:57 Dose: 0.5 mg Hydromorphone HCl (Dilaudid) 1 mg IVP Q3H PRN PRN Reason: Pain, severe (8-10) Last Admin: 06/28/17 05:53 Dose: 1 mg Clindamycin Phosphate (Cleocin In Normal Saline) 600 mg in 50 mls @ 102 mls/hr IVPB Q8H [facility] Last Admin: 06/28/17 06:22 Dose: 102 mls/hr Lactated Ringer's (Lactated Ringer's) 1,000 mls @ 125 mls/hr IV .Q8H [facility] Last Admin: 06/28/17 04:52 Dose: 125 mls/hr Piperacillin Sod/Tazobactam Sod (Zosyn 3.375 Gm Iv Premix) 3.375 gm in 50 mls @ 200 mls/hr IVPB Q6H [facility] Last Admin: 06/28/17 04:52 Dose: 200 mls/hr BUPIVACAINE 0.125%/0.9% NACL (Bupivacaine-Ns 0.125% On-Q Audiovisual Equipment Operator) 600 mls @ 4 mls/ hr IJ ONCE ONE Stop: 07/02/17 19:13 Last Admin: 06/26/17 14:15 Dose: 6 mls BUPIVACAINE 0.125%/0.9% NACL (Bupivacaine-Ns 0.125% On-Q Audiovisual Equipment Operator) 600 mls @ 4 mls/ hr IJ ONCE ONE Stop: 07/04/17 13:42 Levothyroxine Sodium (Synthroid) 50 mcg PO DAILY@0630 [facility] Last Admin: 06/28/17 06:22 Dose: 50 mcg Metformin HCl (Glucophage) 500 mg PO BID [facility] Last Admin: 06/27/17 18:30 Dose: Not Given Naloxone HCl (Narcan) 0.1 mg IVP Q2M PRN PRN Reason: apnea Ondansetron HCl (Zofran Inj) 4 mg IVP Q4 PRN PRN Reason: Nausea/Vomiting Last Admin: 06/26/17 05:52 Dose: 4 mg Oxycodone/Acetaminophen (Percocet 5/325 Mg Tab) 1 tab PO Q4H PRN PRN Reason: Pain, moderate (4-7) Stop: 06/30/17 17:45 Pantoprazole Sodium (Protonix Inj) 40 mg IVP DAILY [facility] Last Admin: 06/27/17 11:32 Dose: 40 mg - Labs Labs: 06/27/17 06:28 06/27/17 06:28 PT 11.8 SECONDS (9.7-12.2) 06/23/17 17:13 INR 1.1 06/23/17 17:13 APTT 26 SECONDS (21-34) 06/23/17 17:13 - Constitutional Appears: Non-toxic, No Acute Distress - ENT Exam ENT Exam: Mucous Membranes Moist - Respiratory Exam Respiratory Exam: absent: Accessory Muscle Use, Respiratory Distress - Cardiovascular Exam Cardiovascular Exam: REGULAR RHYTHM. absent: Tachycardia - GI/Abdominal Exam GI & Abdominal Exam: Soft, Tenderness (post-op and appropriate). absent: Distended, Firm, Guarding, Rigid Additional comments: dressings c/d/i boris ~100/24hrs serosanguinous - Extremities Exam Extremities Exam: absent: Pedal Edema - Neurological Exam Neurological Exam: Alert, Awake, Oriented x3 - Psychiatric Exam Psychiatric exam: Normal Affect, Normal Mood - Skin Skin Exam: Normal Color, Warm Assessment and Plan - Assessment and Plan (Free Text) Assessment: 52F POD#2 s/p robotic sigmoid colectomy Plan: OOB and ambulate with PT will refill onQ ball transition to PO pain medicine possible adv diet later today will d/w Dr Morenita Niño, PGY3 <Timothy Xavier - Last Filed: 06/30/17 12:27> Objective - Vital Signs/Intake and Output Vital Signs (last 24 hours): Temp Pulse Resp BP Pulse Ox 98.3 F 82 20 168/91 H 99 06/30/17 08:00 06/30/17 08:00 06/30/17 08:00 06/30/17 08:00 06/30/17 08:00 Intake and Output: 06/30/17 06/30/17 06:59 18:59 Output Total 225 Balance -225 - Medications Medications: Current Medications Atenolol (Tenormin) 50 mg PO DAILY [facility] Last Admin: 06/30/17 10:20 Dose: 50 mg Ciprofloxacin (Ciloxan 0.3% Ophth Soln) 1 drop OU Q4H [facility] Stop: 07/04/17 15:00 Last Admin: 06/30/17 10:20 Dose: Not Given Diphenhydramine HCl (Benadryl) 25 mg IVP Q6 PRN PRN Reason: Itching / Pruritus Last Admin: 06/28/17 14:50 Dose: 25 mg Enoxaparin Sodium (Lovenox) 40 mg SC DAILY [facility] Last Admin: 06/30/17 10:18 Dose: 40 mg Hydrochlorothiazide (Microzide) 12.5 mg PO DAILY [facility] Last Admin: 06/30/17 10:18 Dose: 12.5 mg Hydromorphone HCl (Dilaudid) 0.5 mg IVP Q3 PRN PRN Reason: breakthrough pain Last Admin: 12/16/17 19:58 Dose: 0.5 mg Hydromorphone HCl (Dilaudid) 1 mg IVP Q3H PRN PRN Reason: Pain, severe (8-10) Last Admin: 06/28/17 21:18 Dose: 1 mg Meropenem 1 gm/ Sodium (Chloride) 100 mls @ 100 mls/hr IVPB Q8 [facility] Last Admin: 06/30/17 05:46 Dose: 100 mls/hr BUPIVACAINE 0.125%/0.9% NACL (Bupivacaine-Ns 0.125% On-Q Audiovisual Equipment Operator) 600 mls @ 4 mls/ hr IJ ONCE ONE Stop: 07/06/17 14:29 Levothyroxine Sodium (Synthroid) 50 mcg PO DAILY@0630 [facility] Last Admin: 06/30/17 05:46 Dose: 50 mcg Metformin HCl (Glucophage) 500 mg PO BID [facility] Last Admin: 06/30/17 10:18 Dose: 500 mg Naloxone HCl (Narcan) 0.1 mg IVP Q2M PRN PRN Reason: apnea Ondansetron HCl (Zofran Inj) 4 mg IVP Q4 PRN PRN Reason: Nausea/Vomiting Last Admin: 06/28/17 14:11 Dose: 4 mg Oxycodone/Acetaminophen (Percocet 5/325 Mg Tab) 1 tab PO Q4H PRN PRN Reason: Pain, moderate (4-7) Stop: 06/30/17 17:45 Last Admin: 06/29/17 01:59 Dose: 1 tab Pantoprazole Sodium (Protonix Inj) 40 mg IVP DAILY [facility] Last Admin: 06/30/17 10:18 Dose: 40 mg - Labs Labs: 06/30/17 07:57 06/30/17 07:57 PT 11.8 SECONDS (9.7-12.2) 06/23/17 17:13 INR 1.1 06/23/17 17:13 APTT 26 SECONDS (21-34) 06/23/17 17:13 Attending/Attestation - Attestation I have personally seen and examined this patient.: Yes I have fully participated in the care of the patient.: Yes I have reviewed all pertinent clinical information, including history, physical exam and plan: Yes Notes (Text): Pt is improving clinically C/w clear liquid diet OOB DVT prophylaxis C.w IV antibiotics Plan d.w pt in detail.
[2017-06-28 07:57] LABS: HEMATOCRIT 32.4 % (34.0-47.0); MEAN CELL VOLUME 91.9 fL (81.0-99.0); MEAN CORPUSCULAR HEMOGLOBIN 30.4 pg (27.0-31.0); MEAN CORPUSCULAR HGB CONC 33.1 g/dL (33.0-37.0); MEAN PLATELET VOLUME 7.8 fL (7.2-11.7); RED CELL DISTRIBUTION WIDTH 15.4 % (11.5-14.5)
[2017-06-28 08:10] LABS: ALKALINE PHOSPHATASE 48 U/L (38-126); ALT/SGPT 47 U/L (9-52); AST/SGOT 29 U/L (14-36); BILIRUBIN,TOTAL 0.6 mg/dL (0.2-1.3); BLOOD UREA NITROGEN 9 mg/dL (7-17); CALCIUM 7.5 mg/dl (8.6-10.4); CARBON DIOXIDE 31 mmol/L (22-30); CHLORIDE 99 mmol/L (98-107); GFR AFRICAN-AMERICAN > 60; GLUCOSE,RANDOM 128 mg/dL (65-105); POTASSIUM 3.5 mmol/L (3.6-5.2); SODIUM 135 mmol/L (132-148); TOTAL PROTEIN 5.5 g/dL (6.3-8.3)
[2017-06-28 08:11] LABS: ALB/GLOB RATIO 1.5 (1.0-2.1)
[2017-06-28] MEDS ORDERED: BUPIVACAINE 0.125%/0.9% NACL 600 ML IJ ONE (08:30)
[2017-06-28] MEDS: Enoxaparin 40 mg Syringe SC SCH (09:45)
[2017-06-28] MEDS: Potassium Chloride 20 mEq ER Tab PO SCH (14:50)
[2017-06-28] MEDS ORDERED: Potassium Chloride 20 mEq ER Tab PO STA (17:26)
--- NOTE | 2017-06-28 19:19 | CP.PCM.CON ---
History of Present Illness - History of Present Illness History of Present Illness: Reaso for consultation: Chest pain 52yF with pmhx of recurrent diverticulitis, HTN, DM, hypothyroidism presents to the ED with worsening abdominal pain. Pt was on po abx Cipro & Flagyl for diverticulitis. s/p robotic hemicolectomy ROS: A 12pt ROS negative except as above PMHx: As stated in HPI PSHx: lap nathalie, lap appy, hysterectomy SHx: denies etoh, smoking, or illicit drug use FHx: denies colon cancer Review of Systems - Review of Systems All systems: reviewed and no additional remarkable complaints except - Constitutional Constitutional: As Per HPI - EENT Eyes: absent: As Per HPI, Blind Spots, Blurred Vision, Change in Vision, Decreased Night Vision, Diplopia, Discharge, Dry Eye, Exophthalmos, Floaters, Irritation, Itchy Eyes, Loss of Peripheral Vision, Pain, Photophobia, Requires Corrective Lenses, Sees Flashes, Spots in Vision, Tunnel Vision, Other Visual Disturbances, Loss of Vision, Other Ears: absent: As Per HPI, Decreased Hearing, Ear Discharge, Ear Pain, Tinnitus, Abnormal Hearing, Disequilibrium, Dizziness, Other Nose/Mouth/Throat: absent: As Per HPI, Epistaxis, Nasal Congestion, Nasal Discharge, Nasal Obstruction, Nasal Trauma, Nose Pain, Post Nasal Drip, Sinus Pain, Sinus Pressure, Bleeding Gums, Change in Voice, Dental Pain, Dry Mouth, Dysphagia, Halitosis, Hoarsness, Lip Swelling, Mouth Lesions, Mouth Pain, Odynophagia, Sore Throat, Throat Swelling, Tongue Swelling, Facial Pain, Neck Pain, Neck Mass, Other - Breasts Breasts: absent: As Per HPI, Change in Shape, Mass, Pain, Nipple Discharge, Nipple Inversion, Skin Changes, Swelling, Other - Cardiovascular Cardiovascular: absent: As Per HPI, Acrocyanosis, Chest Pain, Chest Pain at Rest , Claudication, Diaphoresis, Dyspnea, Dyspnea on Exertion, Edema, Irregular Heart Rhythm, Pain Radiating to Arm/Neck/Jaw, Leg Edema, Leg Ulcers, Lightheadedness, Orthopnea, Palpitations, Paroxysmal Nocturnal Dyspnea, Pedal Edema, Radiating Pain, Rapid Heart Rate, Slow Heart Rate, Syncope, Other - Respiratory Respiratory: absent: As Per HPI, Cough, Dyspnea, Hemoptysis, Dyspnea on Exertion , Wheezing, Snoring, Stridor, Pain on Inspiration, Chest Congestion, Excessive Mucous Production, Change in Mucous Color, Pain with Coughing, Other - Gastrointestinal Gastrointestinal: As Per HPI - Genitourinary Genitourinary: absent: As Per HPI, Change in Urinary Stream, Difficulty Urinating, Dysuria, Flank Pain, Hematuria, Pyuria, Nocturia, Urinary Incontinence, Urinary Frequency, Urinary Hesitance, Urinary Urgency, Voiding Freq/Small Amts, Freq UTI, Hx Renal/Bladder Calculi, Hx /Renal Surgery, Bladder Distension, Other - Reproductive: Female Reproductive:Female: absent: As Per HPI, Amenorrhea, Amenorrhea/ Control, Currently Menstual, Cycle <21 Days, Cycle >35 Days, Cycle Variable, Menses 1-7 Days, Menses >/= 8 Days, Menses Variable, Cycle > 4 Weeks Between, No Menses for 6 Months, Heavy Menses, Light Menses, Normal Menses, Spotting Between Cycles , S/P Hysterectomy, Menopausal, Post Menopausal, Premenarche, Abnormal Vaginal Bleeding, Dysmenorrhea, Dyspareunia, Genital Lesions, Genital Pruritis, Pelvic Pain, Prolapse Symptoms, Sexual Dysfunction, Vaginal Discharge, Vaginal Dryness , Vaginal Odor, Vaginal Pruritis, Other - Menstruation Menstruation: absent: As Per HPI, Amenorrhea, Amenorrhea/ Control, Currently Menstual, Cycle <21 Days, Cycle >35 Days, Cycle Variable, Menses 1-7 Days, Menses >/= 8 Days, Menses Variable, Cycle > 4 Weeks Between, No Menses for 6 Months, Heavy Menses, Light Menses, Normal Menses, Spotting Between Cycles , S/P Hysterectomy, Menopausal, Post Menopausal, Premenarche, Abnormal Vaginal Bleeding, Dysmenorrhea, Other - Musculoskeletal Musculoskeletal: absent: As Per HPI, Abnormal Gait, Arthralgias, Atrophy, Back Pain, Deformity, Joint Swelling, Limited Range of Motion, Loss of Height, Muscle Cramps, Muscle Weakness, Myalgias, Neck Pain, Numbness, Radiating Pain into Limb, Stiffness, Tingling, Other - Integumentary Integumentary: absent: As Per HPI, Acne, Alopecia, Bleeding Lesions, Change in Hair, Change in Nails, Change in Pigmentation, Changing Lesions, Dry Skin, Erythema, Furuncle, Hirsutism, Lesions, New Lesions, Non-Healing Lesions, Photosensitivity, Pruritus, Rash, Skin Pain, Skin Ulcer, Sores, Striae, Swelling , Unusual Bruising, Wounds, Jaundice, Other - Neurological Neurological: absent: As Per HPI, Abnormal Gait, Abnormal Hearing, Abnormal Movements, Abnormal Speech, Behavioral Changes, Burning Sensations, Confusion, Convulsions, Disequilibrium, Dizziness, Numbness, Focal Weakness, Frequent Falls , Headaches, Lack of Coordination, Loss of Vision, Memory Loss, Paresthesias, Radicular Pain, Restless Legs, Sensory Deficit, Syncope, Tingling, Tremor, Vertigo, Weakness, Other Visual Disturbances, Other - Psychiatric Psychiatric: absent: As Per HPI, Abnormal Sleep Pattern, Anhedonia, Anxiety, Auditory Hallucinations, Behavioral Changes, Change in Appetite, Change in Libido, Confusion, Depression, Difficulty Concentrating, Hallucinations, Homicidal Ideation, Hopelessness, Irritability, Memory Loss, Mood Swings, Panic Attacks, Paranoia, Suicidal Ideation, Visual Hallucinations, Tactile Hallucinations, Other - Endocrine Endocrine: absent: As Per HPI, Change in Body Appearance, Change in Libido, Cold Intolorance, Deepening of Voice, Excessive Sweating, Fatigue, Flushing, Heat Intolorance, Increase in Ring/Shoe/Hat Size, Palpitations, Polydipsia, Polyphagia, Polyuria, Other - Hematologic/Lymphatic Hematologic: absent: As Per HPI, Easy Bleeding, Easy Bruising, Lymphadenopathy, Other Physical Exam - Constitutional Appears: Non-toxic, Chronically Ill - Head Exam Head Exam: NORMOCEPHALIC - Eye Exam Eye Exam: PERRL. absent: Scleral icterus - ENT Exam ENT Exam: Mucous Membranes Dry, Normal External Ear Exam - Neck Exam Neck exam: Negative for: Lymphadenopathy, Thyromegaly - Respiratory Exam Respiratory Exam: Decreased Breath Sounds, Clear to Auscultation Bilateral - Cardiovascular Exam Cardiovascular Exam: REGULAR RHYTHM, +S1, +S2 - GI/Abdominal Exam GI & Abdominal Exam: Diminished Bowel Sounds, Distended, Guarding, Tenderness. absent: Rebound, Rigid - Rectal Exam Rectal Exam: Deferred - Exam Exam: NORMAL INSPECTION - Extremities Exam Extremities exam: Positive for: pedal pulses present. Negative for: calf tenderness, pedal edema, tenderness - Back Exam Back exam: absent: CVA tenderness (L), CVA tenderness (R), paraspinal tenderness - Neurological Exam Neurological exam: Alert, CN II-XII Intact, Oriented x3, Reflexes Normal - Psychiatric Exam Psychiatric exam: Depressed - Skin Skin Exam: Dry Past Patient History - Past Medical History & Family History Past Medical History?: Yes - Past Social History Smoking Status: Never Smoked - CARDIAC Hx Hypertension: Yes - PULMONARY Hx Respiratory Disorders: No - NEUROLOGICAL Hx Neurological Disorder: Yes Hx Syncope: Yes - HEENT Hx HEENT Problems: No - RENAL Hx Chronic Kidney Disease: No - ENDOCRINE/METABOLIC Hx Diabetes Mellitus Type 2: Yes Hx Hypothyroidism: Yes - HEMATOLOGICAL/ONCOLOGICAL Hx Blood Disorders: No - INTEGUMENTARY Hx Dermatological Problems: No - MUSCULOSKELETAL/RHEUMATOLOGICAL Hx Falls: No - GASTROINTESTINAL Hx Gastrointestinal Disorders: Yes Hx Diverticulitis: Yes Hx Gastritis: Yes - GENITOURINARY/GYNECOLOGICAL Hx Genitourinary Disorders: No - PSYCHIATRIC Hx Substance Use: No - SURGICAL HISTORY Hx Surgeries: Yes Hx Appendectomy: Yes Hx Cholecystectomy: Yes Hx Hysterectomy: Yes - ANESTHESIA Hx Anesthesia: Yes Hx Anesthesia Reactions: No Hx Malignant Hyperthermia: No Has any member of the family had a problem w/ anesthesia?: No Meds Home Medications: Home Medication List Medication Instructions Recorded Confirmed Type Naproxen [Naprosyn] 1 tab PO BID PRN #20 tab 06/23/17 Rx oxyCODONE/Acetaminophen [Percocet 1 tab PO QID PRN #10 tab 06/23/17 Rx 5/325 mg Tab] Allergies/Adverse Reactions: Allergies Allergy/AdvReac Type Severity Reaction Status Date / Time tramadol Allergy Verified 06/23/17 16:07 - Medications Medications: Current Medications Atenolol (Tenormin) 50 mg PO DAILY [facility] Last Admin: 06/28/17 09:45 Dose: 50 mg Diphenhydramine HCl (Benadryl) 25 mg IVP Q6 PRN PRN Reason: Itching / Pruritus Last Admin: 06/28/17 14:50 Dose: 25 mg Enoxaparin Sodium (Lovenox) 40 mg SC DAILY [facility] Last Admin: 06/28/17 09:45 Dose: 40 mg Hydrochlorothiazide (Microzide) 12.5 mg PO DAILY [facility] Last Admin: 06/28/17 09:45 Dose: 12.5 mg Hydromorphone HCl (Dilaudid) 0.5 mg IVP Q3 PRN PRN Reason: breakthrough pain Last Admin: 06/28/17 02:57 Dose: 0.5 mg Hydromorphone HCl (Dilaudid) 1 mg IVP Q3H PRN PRN Reason: Pain, severe (8-10) Last Admin: 06/28/17 14:05 Dose: 1 mg Clindamycin Phosphate (Cleocin In Normal Saline) 600 mg in 50 mls @ 102 mls/hr IVPB Q8H [facility] Last Admin: 06/28/17 15:50 Dose: 102 mls/hr Lactated Ringer's (Lactated Ringer's) 1,000 mls @ 125 mls/hr IV .Q8H [facility] Last Admin: 06/28/17 14:50 Dose: 125 mls/hr Piperacillin Sod/Tazobactam Sod (Zosyn 3.375 Gm Iv Premix) 3.375 gm in 50 mls @ 200 mls/hr IVPB Q6H [facility] Last Admin: 06/28/17 15:55 Dose: 200 mls/hr BUPIVACAINE 0.125%/0.9% NACL (Bupivacaine-Ns 0.125% On-Q Communication Equipment Repairer) 600 mls @ 4 mls/ hr IJ ONCE ONE Stop: 07/04/17 14:29 Levothyroxine Sodium (Synthroid) 50 mcg PO DAILY@0630 [facility] Last Admin: 06/28/17 06:22 Dose: 50 mcg Metformin HCl (Glucophage) 500 mg PO BID [facility] Last Admin: 06/28/17 17:45 Dose: 500 mg Naloxone HCl (Narcan) 0.1 mg IVP Q2M PRN PRN Reason: apnea Ondansetron HCl (Zofran Inj) 4 mg IVP Q4 PRN PRN Reason: Nausea/Vomiting Last Admin: 06/28/17 14:11 Dose: 4 mg Oxycodone/Acetaminophen (Percocet 5/325 Mg Tab) 1 tab PO Q4H PRN PRN Reason: Pain, moderate (4-7) Stop: 06/30/17 17:45 Pantoprazole Sodium (Protonix Inj) 40 mg IVP DAILY [facility] Last Admin: 06/28/17 09:45 Dose: 40 mg Potassium Chloride (K-Dur 20 Meq Er Tab) 40 meq PO DAILY [facility] Last Admin: 06/28/17 14:50 Dose: 40 meq Results - Vital Signs Recent Vital Signs: Last Vital Signs Temp 98 F 06/28/17 15:53 Pulse 98 H 06/28/17 15:53 Resp 16 06/28/17 15:53 BP 136/82 06/28/17 15:53 Pulse Ox 98 06/28/17 15:53 - Labs Result Diagrams: 06/30/17 07:57 06/30/17 07:57 Labs: Laboratory Results - last 24 hr 06/27/17 06/28/17 06/28/17 21:28 06:20 07:39 WBC 14.0 H RBC 3.53 L Hgb 10.7 L Hct 32.4 L MCV 91.9 MCH 30.4 MCHC 33.1 RDW 15.4 H Plt Count 396 MPV 7.8 Sodium Potassium Chloride Carbon Dioxide Anion Gap BUN Creatinine Est GFR ( Amer) Est GFR (Non-Af Amer) POC Glucose (mg/dL) 114 H 126 H Random Glucose Calcium Total Bilirubin AST ALT Alkaline Phosphatase Total Creatine Kinase CK-MB (Mass) Troponin I Total Protein Albumin Globulin Albumin/Globulin Ratio 06/28/17 06/28/17 06/28/17 07:39 11:07 14:13 WBC RBC Hgb Hct MCV MCH MCHC RDW Plt Count MPV Sodium 135 Potassium 3.5 L Chloride 99 Carbon Dioxide 31 H Anion Gap 9 L BUN 9 Creatinine 0.5 L Est GFR ( Amer) > 60 Est GFR (Non-Af Amer) > 60 POC Glucose (mg/dL) 152 H Random Glucose 128 H Calcium 7.5 L Total Bilirubin 0.6 AST 29 ALT 47 Alkaline Phosphatase 48 Total Creatine Kinase 241 H CK-MB (Mass) 1.87 Troponin I < 0.0120 Total Protein 5.5 L Albumin 3.3 L Globulin 2.2 Albumin/Globulin Ratio 1.5 06/28/17 16:43 WBC RBC Hgb Hct MCV MCH MCHC RDW Plt Count MPV Sodium Potassium Chloride Carbon Dioxide Anion Gap BUN Creatinine Est GFR ( Amer) Est GFR (Non-Af Amer) POC Glucose (mg/dL) 147 H Random Glucose Calcium Total Bilirubin AST ALT Alkaline Phosphatase Total Creatine Kinase CK-MB (Mass) Troponin I Total Protein Albumin Globulin Albumin/Globulin Ratio Assessment & Plan - Assessment and Plan (Free Text) Assessment: 52 F s/p Hemocolectomy C/O Chest pain: Atypical Trop x 1 negative Will continue to monitor HTN DM2 On medications
--- NOTE | 2017-06-28 19:32 | CP.PCM.PN ---
Subjective - Date & Time of Evaluation Date of Evaluation: 06/28/17 Time of Evaluation: 09:00 - Subjective Subjective: clinically same Objective - Vital Signs/Intake and Output Vital Signs (last 24 hours): Temp Pulse Resp BP Pulse Ox 98 F 98 H 16 136/82 98 06/28/17 15:53 06/28/17 15:53 06/28/17 15:53 06/28/17 15:53 06/28/17 15:53 Intake and Output: 06/28/17 06/29/17 18:59 06:59 Intake Total 1350 Output Total 700 Balance 650 - Medications Medications: Current Medications Atenolol (Tenormin) 50 mg PO DAILY [facility] Last Admin: 06/28/17 09:45 Dose: 50 mg Diphenhydramine HCl (Benadryl) 25 mg IVP Q6 PRN PRN Reason: Itching / Pruritus Last Admin: 06/28/17 14:50 Dose: 25 mg Enoxaparin Sodium (Lovenox) 40 mg SC DAILY [facility] Last Admin: 06/28/17 09:45 Dose: 40 mg Hydrochlorothiazide (Microzide) 12.5 mg PO DAILY [facility] Last Admin: 06/28/17 09:45 Dose: 12.5 mg Hydromorphone HCl (Dilaudid) 0.5 mg IVP Q3 PRN PRN Reason: breakthrough pain Last Admin: 06/28/17 02:57 Dose: 0.5 mg Hydromorphone HCl (Dilaudid) 1 mg IVP Q3H PRN PRN Reason: Pain, severe (8-10) Last Admin: 06/28/17 14:05 Dose: 1 mg Clindamycin Phosphate (Cleocin In Normal Saline) 600 mg in 50 mls @ 102 mls/hr IVPB Q8H [facility] Last Admin: 06/28/17 15:50 Dose: 102 mls/hr Lactated Ringer's (Lactated Ringer's) 1,000 mls @ 125 mls/hr IV .Q8H [facility] Last Admin: 06/28/17 14:50 Dose: 125 mls/hr Piperacillin Sod/Tazobactam Sod (Zosyn 3.375 Gm Iv Premix) 3.375 gm in 50 mls @ 200 mls/hr IVPB Q6H [facility] Last Admin: 06/28/17 15:55 Dose: 200 mls/hr BUPIVACAINE 0.125%/0.9% NACL (Bupivacaine-Ns 0.125% On-Q Specimen Preparation Assistant) 600 mls @ 4 mls/ hr IJ ONCE ONE Stop: 07/04/17 14:29 Levothyroxine Sodium (Synthroid) 50 mcg PO DAILY@0630 [facility] Last Admin: 06/28/17 06:22 Dose: 50 mcg Metformin HCl (Glucophage) 500 mg PO BID [facility] Last Admin: 06/28/17 17:45 Dose: 500 mg Naloxone HCl (Narcan) 0.1 mg IVP Q2M PRN PRN Reason: apnea Ondansetron HCl (Zofran Inj) 4 mg IVP Q4 PRN PRN Reason: Nausea/Vomiting Last Admin: 06/28/17 14:11 Dose: 4 mg Oxycodone/Acetaminophen (Percocet 5/325 Mg Tab) 1 tab PO Q4H PRN PRN Reason: Pain, moderate (4-7) Stop: 06/30/17 17:45 Pantoprazole Sodium (Protonix Inj) 40 mg IVP DAILY [facility] Last Admin: 06/28/17 09:45 Dose: 40 mg Potassium Chloride (K-Dur 20 Meq Er Tab) 40 meq PO DAILY [facility] Last Admin: 06/28/17 14:50 Dose: 40 meq - Labs Labs: 06/28/17 07:39 06/28/17 07:39 PT 11.8 SECONDS (9.7-12.2) 06/23/17 17:13 INR 1.1 06/23/17 17:13 APTT 26 SECONDS (21-34) 06/23/17 17:13
[2017-06-29] MEDS: Piperacill/Tazo 3.375gm in Dex 3.375 GM/50 ML BAG IVPB SCH ×3 (04:14→16:35)
[2017-06-29] MEDS: HYDROmorphone 0.5 mg/0.5 ml ISec IVP PRN ×3 (05:14→19:58)
[2017-06-29] MEDS: Levothyroxine 50 MCG TAB PO SCH (06:17)
[2017-06-29] MEDS: Clindamycin 600mg/50ml NS 600 MG/50 ML BAG IVPB SCH ×2 (06:17→14:20)
[2017-06-29 07:29] LABS: BASO % 0.1 % (0.0-2.0); HEMATOCRIT 35.3 % (34.0-47.0); LYMPH # 0.6 K/uL (1.0-4.3); LYMPH % 4.4 % (20.0-40.0); MEAN CELL VOLUME 92.2 fL (81.0-99.0); MEAN CORPUSCULAR HGB CONC 33.6 g/dL (33.0-37.0); MEAN PLATELET VOLUME 7.8 fL (7.2-11.7); MONO # 0.5 K/uL (0.0-0.8); MONO % 3.6 % (0.0-10.0); PLATELET COUNT 463 K/uL (130-400); WHITE BLOOD COUNT 13.9 K/uL (4.8-10.8)
[2017-06-29 07:41] LABS: ALB/GLOB RATIO 0.9 (1.0-2.1); ALKALINE PHOSPHATASE 48 U/L (38-126); ALT/SGPT 41 U/L (9-52); AST/SGOT 22 U/L (14-36); BILIRUBIN,TOTAL 0.6 mg/dL (0.2-1.3); BLOOD UREA NITROGEN 6 mg/dL (7-17); CALCIUM 7.9 mg/dl (8.6-10.4); CARBON DIOXIDE 32 mmol/L (22-30); CHLORIDE 97 mmol/L (98-107); GFR AFRICAN-AMERICAN > 60; GLUCOSE,RANDOM 171 mg/dL (65-105); SODIUM 135 mmol/L (132-148); TOTAL PROTEIN 6.5 g/dL (6.3-8.3)
[2017-06-29 09:24] LABS: NEUTROPHIL 93 % (50-75); TOTAL CELLS COUNTED 100
[2017-06-29] MEDS: Potassium Chloride 20 mEq ER Tab PO SCH (10:42)
[2017-06-29] MEDS: Enoxaparin 40 mg Syringe SC SCH (10:42)
--- NOTE | 2017-06-29 12:53 | CP.PCM.PN ---
<Elbert Peña - Last Filed: 06/29/17 16:48> Subjective - Date & Time of Evaluation Date of Evaluation: 06/29/17 Time of Evaluation: 08:00 - Subjective Subjective: Surgery Progress note. Dr. Xavier Pt seen and examined at bedside. No acute events overnight. Denies F/C. Tolerating Clears and requesting to eat more. Denies N/V/D. Abd pain worse overnight, however, states that it is tolerable. Does report flatus. No BM. Objective - Vital Signs/Intake and Output Vital Signs (last 24 hours): Temp Pulse Resp BP Pulse Ox 98.2 F 81 20 160/89 H 97 06/29/17 07:30 06/29/17 07:30 06/29/17 07:30 06/29/17 07:30 06/29/17 07:30 Intake and Output: 06/29/17 06/29/17 06:59 18:59 Intake Total 2620 Output Total 710 Balance 1910 - Medications Medications: Current Medications Atenolol (Tenormin) 50 mg PO DAILY [facility] Last Admin: 06/29/17 10:43 Dose: 50 mg Diphenhydramine HCl (Benadryl) 25 mg IVP Q6 PRN PRN Reason: Itching / Pruritus Last Admin: 06/28/17 14:50 Dose: 25 mg Enoxaparin Sodium (Lovenox) 40 mg SC DAILY [facility] Last Admin: 06/29/17 10:42 Dose: 40 mg Hydrochlorothiazide (Microzide) 12.5 mg PO DAILY [facility] Last Admin: 06/29/17 10:42 Dose: 12.5 mg Hydromorphone HCl (Dilaudid) 0.5 mg IVP Q3 PRN PRN Reason: breakthrough pain Last Admin: 06/29/17 12:34 Dose: 0.5 mg Hydromorphone HCl (Dilaudid) 1 mg IVP Q3H PRN PRN Reason: Pain, severe (8-10) Last Admin: 06/28/17 21:18 Dose: 1 mg Clindamycin Phosphate (Cleocin In Normal Saline) 600 mg in 50 mls @ 102 mls/hr IVPB Q8H [facility] Last Admin: 06/29/17 06:17 Dose: 102 mls/hr Piperacillin Sod/Tazobactam Sod (Zosyn 3.375 Gm Iv Premix) 3.375 gm in 50 mls @ 200 mls/hr IVPB Q6H [facility] Last Admin: 06/29/17 10:43 Dose: 200 mls/hr BUPIVACAINE 0.125%/0.9% NACL (Bupivacaine-Ns 0.125% On-Q Complex Care Nurse Practitioner) 600 mls @ 4 mls/ hr IJ ONCE ONE Stop: 07/04/17 14:29 Levothyroxine Sodium (Synthroid) 50 mcg PO DAILY@0630 [facility] Last Admin: 06/29/17 06:17 Dose: 50 mcg Metformin HCl (Glucophage) 500 mg PO BID [facility] Last Admin: 06/29/17 10:42 Dose: 500 mg Naloxone HCl (Narcan) 0.1 mg IVP Q2M PRN PRN Reason: apnea Ondansetron HCl (Zofran Inj) 4 mg IVP Q4 PRN PRN Reason: Nausea/Vomiting Last Admin: 06/28/17 14:11 Dose: 4 mg Oxycodone/Acetaminophen (Percocet 5/325 Mg Tab) 1 tab PO Q4H PRN PRN Reason: Pain, moderate (4-7) Stop: 06/30/17 17:45 Last Admin: 06/29/17 01:59 Dose: 1 tab Pantoprazole Sodium (Protonix Inj) 40 mg IVP DAILY [facility] Last Admin: 06/29/17 10:45 Dose: 40 mg Potassium Chloride (K-Dur 20 Meq Er Tab) 40 meq PO DAILY [facility] Last Admin: 06/29/17 10:42 Dose: 40 meq - Labs Labs: 06/29/17 07:13 06/29/17 07:13 PT 11.8 SECONDS (9.7-12.2) 06/23/17 17:13 INR 1.1 06/23/17 17:13 APTT 26 SECONDS (21-34) 06/23/17 17:13 - Constitutional Appears: Well, Non-toxic, No Acute Distress - Head Exam Head Exam: ATRAUMATIC, NORMAL INSPECTION, NORMOCEPHALIC - Eye Exam Eye Exam: EOMI - ENT Exam ENT Exam: Mucous Membranes Moist - Respiratory Exam Respiratory Exam: NORMAL BREATHING PATTERN. absent: Accessory Muscle Use, Respiratory Distress - Cardiovascular Exam Cardiovascular Exam: RRR. absent: JVD - GI/Abdominal Exam GI & Abdominal Exam: Soft. absent: Distended, Firm, Guarding, Rigid Additional comments: Hans drain in place - Serosanguinous output. mild Tenderness to palpation. On Q in place 7cc/hr No rebound, no guarding. Dressing clean dry and intact - Extremities Exam Extremities Exam: Normal Inspection. absent: Calf Tenderness - Neurological Exam Neurological Exam: Alert, Awake, Oriented x3 - Skin Skin Exam: Dry, Intact, Normal Color, Warm Assessment and Plan - Assessment and Plan (Free Text) Assessment: 52yo F POD3 s/p robotic sigmoid colectomy - Encourage OOB and ambulate - Continue OnQ for pain management - breakthrough Pain management - Will advance diet to full liquid diet. - Continue dietary supplements. Add ensure - ID consult, continue IV Abx Further Recs as per Dr. Morenita Peña PGY1 surgery pager: [phone] <Timothy Xavier - Last Filed: 06/30/17 12:30> Objective - Vital Signs/Intake and Output Vital Signs (last 24 hours): Temp Pulse Resp BP Pulse Ox 98.3 F 82 20 168/91 H 99 06/30/17 08:00 06/30/17 08:00 06/30/17 08:00 06/30/17 08:00 06/30/17 08:00 Intake and Output: 06/30/17 06/30/17 06:59 18:59 Output Total 225 Balance -225 - Medications Medications: Current Medications Atenolol (Tenormin) 50 mg PO DAILY [facility] Last Admin: 06/30/17 10:20 Dose: 50 mg Ciprofloxacin (Ciloxan 0.3% Oph Soln) 1 drop OU Q4H [facility] Stop: 07/04/17 15:00 Last Admin: 06/30/17 10:20 Dose: Not Given Diphenhydramine HCl (Benadryl) 25 mg IVP Q6 PRN PRN Reason: Itching / Pruritus Last Admin: 06/28/17 14:50 Dose: 25 mg Enoxaparin Sodium (Lovenox) 40 mg SC DAILY [facility] Last Admin: 06/30/17 10:18 Dose: 40 mg Hydrochlorothiazide (Microzide) 12.5 mg PO DAILY [facility] Last Admin: 06/30/17 10:18 Dose: 12.5 mg Hydromorphone HCl (Dilaudid) 0.5 mg IVP Q3 PRN PRN Reason: breakthrough pain Last Admin: 06/29/17 19:58 Dose: 0.5 mg Hydromorphone HCl (Dilaudid) 1 mg IVP Q3H PRN PRN Reason: Pain, severe (8-10) Last Admin: 06/28/17 21:18 Dose: 1 mg Meropenem 1 gm/ Sodium (Chloride) 100 mls @ 100 mls/hr IVPB Q8 [facility] Last Admin: 06/30/17 05:46 Dose: 100 mls/hr BUPIVACAINE 0.125%/0.9% NACL (Bupivacaine-Ns 0.125% On-Q Complex Care Nurse Practitioner) 600 mls @ 4 mls/ hr IJ ONCE ONE Stop: 07/06/17 14:29 Levothyroxine Sodium (Synthroid) 50 mcg PO DAILY@0630 [facility] Last Admin: 06/30/17 05:46 Dose: 50 mcg Metformin HCl (Glucophage) 500 mg PO BID [facility] Last Admin: 06/30/17 10:18 Dose: 500 mg Naloxone HCl (Narcan) 0.1 mg IVP Q2M PRN PRN Reason: apnea Ondansetron HCl (Zofran Inj) 4 mg IVP Q4 PRN PRN Reason: Nausea/Vomiting Last Admin: 06/28/17 14:11 Dose: 4 mg Oxycodone/Acetaminophen (Percocet 5/325 Mg Tab) 1 tab PO Q4H PRN PRN Reason: Pain, moderate (4-7) Stop: 06/30/17 17:45 Last Admin: 06/29/17 01:59 Dose: 1 tab Pantoprazole Sodium (Protonix Inj) 40 mg IVP DAILY [facility] Last Admin: 06/30/17 10:18 Dose: 40 mg - Labs Labs: 06/30/17 07:57 06/30/17 07:57 PT 11.8 SECONDS (9.7-12.2) 06/23/17 17:13 INR 1.1 06/23/17 17:13 APTT 26 SECONDS (21-34) 06/23/17 17:13 Attending/Attestation - Attestation I have personally seen and examined this patient.: Yes I have fully participated in the care of the patient.: Yes I have reviewed all pertinent clinical information, including history, physical exam and plan: Yes Notes (Text): Pt was seen and examined at bedside Agree with above note and assessment Pt is improving clinically C.w antibiotics Full liquid diet OOB to walk Advance diet if pt has bowel movement Plan d.w pt in detail.
--- NOTE | 2017-06-29 16:35 | CP.PCM.PN ---
Subjective - Date & Time of Evaluation Date of Evaluation: 06/29/17 Time of Evaluation: 09:20 - Subjective Subjective: clinically same Objective - Vital Signs/Intake and Output Vital Signs (last 24 hours): Temp Pulse Resp BP Pulse Ox 98.2 F 81 20 160/89 H 97 06/29/17 07:30 06/29/17 07:30 06/29/17 07:30 06/29/17 07:30 06/29/17 07:30 Intake and Output: 06/29/17 06/29/17 06:59 18:59 Intake Total 2620 625 Output Total 710 625 Balance 1910 0 - Medications Medications: Current Medications Atenolol (Tenormin) 50 mg PO DAILY [facility] Last Admin: 06/29/17 10:43 Dose: 50 mg Diphenhydramine HCl (Benadryl) 25 mg IVP Q6 PRN PRN Reason: Itching / Pruritus Last Admin: 06/28/17 14:50 Dose: 25 mg Enoxaparin Sodium (Lovenox) 40 mg SC DAILY [facility] Last Admin: 06/29/17 10:42 Dose: 40 mg Hydrochlorothiazide (Microzide) 12.5 mg PO DAILY [facility] Last Admin: 06/29/17 10:42 Dose: 12.5 mg Hydromorphone HCl (Dilaudid) 0.5 mg IVP Q3 PRN PRN Reason: breakthrough pain Last Admin: 06/29/17 12:34 Dose: 0.5 mg Hydromorphone HCl (Dilaudid) 1 mg IVP Q3H PRN PRN Reason: Pain, severe (8-10) Last Admin: 06/28/17 21:18 Dose: 1 mg Clindamycin Phosphate (Cleocin In Normal Saline) 600 mg in 50 mls @ 102 mls/hr IVPB Q8H [facility] Last Admin: 06/29/17 14:20 Dose: 102 mls/hr Piperacillin Sod/Tazobactam Sod (Zosyn 3.375 Gm Iv Premix) 3.375 gm in 50 mls @ 200 mls/hr IVPB Q6H [facility] Last Admin: 06/29/17 10:43 Dose: 200 mls/hr BUPIVACAINE 0.125%/0.9% NACL (Bupivacaine-Ns 0.125% On-Q Family Living Educator) 600 mls @ 4 mls/ hr IJ ONCE ONE Stop: 12/21/17 14:29 Levothyroxine Sodium (Synthroid) 50 mcg PO DAILY@0630 [facility] Last Admin: 06/29/17 06:17 Dose: 50 mcg Metformin HCl (Glucophage) 500 mg PO BID [facility] Last Admin: 06/29/17 10:42 Dose: 500 mg Naloxone HCl (Narcan) 0.1 mg IVP Q2M PRN PRN Reason: apnea Ondansetron HCl (Zofran Inj) 4 mg IVP Q4 PRN PRN Reason: Nausea/Vomiting Last Admin: 06/28/17 14:11 Dose: 4 mg Oxycodone/Acetaminophen (Percocet 5/325 Mg Tab) 1 tab PO Q4H PRN PRN Reason: Pain, moderate (4-7) Stop: 06/30/17 17:45 Last Admin: 06/29/17 01:59 Dose: 1 tab Pantoprazole Sodium (Protonix Inj) 40 mg IVP DAILY [facility] Last Admin: 06/29/17 10:45 Dose: 40 mg Potassium Chloride (K-Dur 20 Meq Er Tab) 40 meq PO DAILY [facility] Last Admin: 06/29/17 10:42 Dose: 40 meq - Labs Labs: 06/29/17 07:13 06/29/17 07:13 PT 11.8 SECONDS (9.7-12.2) 06/23/17 17:13 INR 1.1 06/23/17 17:13 APTT 26 SECONDS (21-34) 06/23/17 17:13 - Constitutional Appears: Well - Head Exam Head Exam: ATRAUMATIC, NORMAL INSPECTION, NORMOCEPHALIC - Eye Exam Eye Exam: EOMI, Normal appearance, PERRL Pupil Exam: NORMAL ACCOMODATION, PERRL - ENT Exam ENT Exam: Mucous Membranes Moist, Normal Exam - Neck Exam Neck Exam: Full ROM, Normal Inspection. absent: Lymphadenopathy - Respiratory Exam Respiratory Exam: Decreased Breath Sounds - Cardiovascular Exam Cardiovascular Exam: REGULAR RHYTHM, +S1, +S2 - GI/Abdominal Exam GI & Abdominal Exam: Soft, Diminished Bowel Sounds - Rectal Exam Rectal Exam: Deferred
[2017-06-29] MEDS: Ciprofloxacin 0.3% OPTH SOLN OU SCH ×2 (18:42→21:52)
[2017-06-29] MEDS: Meropenem 1 GM in Sodium Chloride 0.9% 100 ML IVPB SCH (21:51)
[2017-06-30 00:50] VITALS: RESP 20
[2017-06-30] MEDS: Ciprofloxacin 0.3% OPTH SOLN OU SCH ×6 (01:15→21:36)
[2017-06-30] MEDS: Lactated Ringer's 1,000 ML IV SCH (01:17)
[2017-06-30] MEDS: Meropenem 1 GM in Sodium Chloride 0.9% 100 ML IVPB SCH ×2 (05:46→14:00)
[2017-06-30] MEDS: Levothyroxine 50 MCG TAB PO SCH (05:46)
[2017-06-30 08:12] LABS: BASO % 0.2 % (0.0-2.0); EOS # 0.1 K/uL (0.0-0.7); EOS % 0.9 % (0.0-4.0); HEMATOCRIT 33.2 % (34.0-47.0); LYMPH % 10.5 % (20.0-40.0); MEAN CELL VOLUME 91.4 fL (81.0-99.0); MEAN CORPUSCULAR HEMOGLOBIN 31.3 pg (27.0-31.0); MEAN CORPUSCULAR HGB CONC 34.2 g/dL (33.0-37.0); MEAN PLATELET VOLUME 7.9 fL (7.2-11.7); MONO # 0.6 K/uL (0.0-0.8); MONO % 5.5 % (0.0-10.0)
[2017-06-30] MEDS ORDERED: BUPIVACAINE 0.125%/0.9% NACL 600 ML IJ ONE (08:30)
[2017-06-30 08:51] LABS: ALB/GLOB RATIO 1.3 (1.0-2.1); ALKALINE PHOSPHATASE 46 U/L (38-126); ALT/SGPT 36 U/L (9-52); AST/SGOT 20 U/L (14-36); BILIRUBIN,TOTAL 0.5 mg/dL (0.2-1.3); BLOOD UREA NITROGEN 8 mg/dL (7-17); CALCIUM 7.6 mg/dl (8.6-10.4); CARBON DIOXIDE 32 mmol/L (22-30); CHLORIDE 99 mmol/L (98-107); GFR AFRICAN-AMERICAN > 60; GLUCOSE,RANDOM 145 mg/dL (65-105); POTASSIUM 3.6 mmol/L (3.6-5.2); SODIUM 136 mmol/L (132-148); TOTAL PROTEIN 5.1 g/dL (6.3-8.3)
--- NOTE | 2017-06-30 09:30 | CP.PCM.PN ---
Subjective - Date & Time of Evaluation Date of Evaluation: 06/30/17 Time of Evaluation: 08:40 - Subjective Subjective: clinically same Objective - Vital Signs/Intake and Output Vital Signs (last 24 hours): Temp Pulse Resp BP Pulse Ox 99.5 F 93 H 20 137/82 94 L 06/29/17 23:05 06/29/17 23:05 06/29/17 23:05 06/29/17 23:05 06/29/17 23:05 Intake and Output: 06/30/17 06/30/17 06:59 18:59 Output Total 225 Balance -225 - Medications Medications: Current Medications Atenolol (Tenormin) 50 mg PO DAILY [facility] Last Admin: 06/29/17 10:43 Dose: 50 mg Ciprofloxacin (Ciloxan 0.3% Oph Soln) 1 drop OU Q4H [facility] Stop: 07/04/17 15:00 Last Admin: 06/29/17 21:52 Dose: 1 drop Diphenhydramine HCl (Benadryl) 25 mg IVP Q6 PRN PRN Reason: Itching / Pruritus Last Admin: 06/28/17 14:50 Dose: 25 mg Enoxaparin Sodium (Lovenox) 40 mg SC DAILY [facility] Last Admin: 06/29/17 10:42 Dose: 40 mg Hydrochlorothiazide (Microzide) 12.5 mg PO DAILY [facility] Last Admin: 06/29/17 10:42 Dose: 12.5 mg Hydromorphone HCl (Dilaudid) 0.5 mg IVP Q3 PRN PRN Reason: breakthrough pain Last Admin: 06/29/17 19:58 Dose: 0.5 mg Hydromorphone HCl (Dilaudid) 1 mg IVP Q3H PRN PRN Reason: Pain, severe (8-10) Last Admin: 06/28/17 21:18 Dose: 1 mg Meropenem 1 gm/ Sodium (Chloride) 100 mls @ 100 mls/hr IVPB Q8 [facility] Last Admin: 06/30/17 05:46 Dose: 100 mls/hr BUPIVACAINE 0.125%/0.9% NACL (Bupivacaine-Ns 0.125% On-Q Carton Liner) 600 mls @ 4 mls/ hr IJ ONCE ONE Stop: 07/06/17 14:29 Levothyroxine Sodium (Synthroid) 50 mcg PO DAILY@0630 [facility] Last Admin: 06/30/17 05:46 Dose: 50 mcg Metformin HCl (Glucophage) 500 mg PO BID [facility] Last Admin: 06/29/17 17:06 Dose: 500 mg Naloxone HCl (Narcan) 0.1 mg IVP Q2M PRN PRN Reason: apnea Ondansetron HCl (Zofran Inj) 4 mg IVP Q4 PRN PRN Reason: Nausea/Vomiting Last Admin: 06/28/17 14:11 Dose: 4 mg Oxycodone/Acetaminophen (Percocet 5/325 Mg Tab) 1 tab PO Q4H PRN PRN Reason: Pain, moderate (4-7) Stop: 06/30/17 17:45 Last Admin: 06/29/17 01:59 Dose: 1 tab Pantoprazole Sodium (Protonix Inj) 40 mg IVP DAILY [facility] Last Admin: 06/29/17 10:45 Dose: 40 mg Potassium Chloride (K-Dur 20 Meq Er Tab) 40 meq PO DAILY [facility] Last Admin: 06/29/17 10:42 Dose: 40 meq - Labs Labs: 06/30/17 07:57 06/30/17 07:57 PT 11.8 SECONDS (9.7-12.2) 06/23/17 17:13 INR 1.1 06/23/17 17:13 APTT 26 SECONDS (21-34) 06/23/17 17:13 - Constitutional Appears: Well - Head Exam Head Exam: ATRAUMATIC, NORMAL INSPECTION, NORMOCEPHALIC - Eye Exam Eye Exam: EOMI, Normal appearance, PERRL Pupil Exam: NORMAL ACCOMODATION, PERRL - ENT Exam ENT Exam: Mucous Membranes Moist, Normal Exam - Neck Exam Neck Exam: Full ROM, Normal Inspection. absent: Lymphadenopathy - Respiratory Exam Respiratory Exam: Decreased Breath Sounds - Cardiovascular Exam Cardiovascular Exam: REGULAR RHYTHM, +S2 - GI/Abdominal Exam GI & Abdominal Exam: Soft, Diminished Bowel Sounds - Rectal Exam Rectal Exam: Deferred
[2017-06-30] MEDS: Potassium Chloride 20 mEq ER Tab PO SCH (10:17)
[2017-06-30] MEDS: Enoxaparin 40 mg Syringe SC SCH (10:18)
--- NOTE | 2017-06-30 11:47 | CP.PCM.PN ---
Subjective - Date & Time of Evaluation Date of Evaluation: 06/30/17 Time of Evaluation: 11:44 - Subjective Subjective: General surgery progress note for Dr. Xavier-Dea Wolfe, PGY-1 Pt S & E at bedside. Pt reports continued abdominal pain- OnQ is empty. Pt reports BM x 1- diarrhea , tolerating FLD. Denies N & V, F & C. Per nursing- pt declining OOBTC, ambulation. Pt encouraged to ambulate with assistance/OOBTC. Objective - Vital Signs/Intake and Output Vital Signs (last 24 hours): Temp Pulse Resp BP Pulse Ox 99.5 F 93 H 20 137/82 94 L 06/29/17 23:05 06/29/17 23:05 06/29/17 23:05 06/29/17 23:05 06/29/17 23:05 Intake and Output: 06/30/17 06/30/17 06:59 18:59 Output Total 225 Balance -225 - Medications Medications: Current Medications Atenolol (Tenormin) 50 mg PO DAILY [facility] Last Admin: 06/30/17 10:20 Dose: 50 mg Ciprofloxacin (Ciloxan 0.3% Ophth Soln) 1 drop OU Q4H [facility] Stop: 07/04/17 15:00 Last Admin: 06/30/17 10:20 Dose: Not Given Diphenhydramine HCl (Benadryl) 25 mg IVP Q6 PRN PRN Reason: Itching / Pruritus Last Admin: 06/28/17 14:50 Dose: 25 mg Enoxaparin Sodium (Lovenox) 40 mg SC DAILY [facility] Last Admin: 06/30/17 10:18 Dose: 40 mg Hydrochlorothiazide (Microzide) 12.5 mg PO DAILY [facility] Last Admin: 06/30/17 10:18 Dose: 12.5 mg Hydromorphone HCl (Dilaudid) 0.5 mg IVP Q3 PRN PRN Reason: breakthrough pain Last Admin: 06/29/17 19:58 Dose: 0.5 mg Hydromorphone HCl (Dilaudid) 1 mg IVP Q3H PRN PRN Reason: Pain, severe (8-10) Last Admin: 06/28/17 21:18 Dose: 1 mg Meropenem 1 gm/ Sodium (Chloride) 100 mls @ 100 mls/hr IVPB Q8 [facility] Last Admin: 06/30/17 05:46 Dose: 100 mls/hr BUPIVACAINE 0.125%/0.9% NACL (Bupivacaine-Ns 0.125% On-Q Passenger Screener) 600 mls @ 4 mls/ hr IJ ONCE ONE Stop: 07/06/17 14:29 Levothyroxine Sodium (Synthroid) 50 mcg PO DAILY@0630 [facility] Last Admin: 06/30/17 05:46 Dose: 50 mcg Metformin HCl (Glucophage) 500 mg PO BID [facility] Last Admin: 06/30/17 10:18 Dose: 500 mg Naloxone HCl (Narcan) 0.1 mg IVP Q2M PRN PRN Reason: apnea Ondansetron HCl (Zofran Inj) 4 mg IVP Q4 PRN PRN Reason: Nausea/Vomiting Last Admin: 06/28/17 14:11 Dose: 4 mg Oxycodone/Acetaminophen (Percocet 5/325 Mg Tab) 1 tab PO Q4H PRN PRN Reason: Pain, moderate (4-7) Stop: 06/30/17 17:45 Last Admin: 06/29/17 01:59 Dose: 1 tab Pantoprazole Sodium (Protonix Inj) 40 mg IVP DAILY [facility] Last Admin: 06/30/17 10:18 Dose: 40 mg - Labs Labs: 06/30/17 07:57 06/30/17 07:57 PT 11.8 SECONDS (9.7-12.2) 06/23/17 17:13 INR 1.1 06/23/17 17:13 APTT 26 SECONDS (21-34) 06/23/17 17:13 - Constitutional Appears: Non-toxic, No Acute Distress - Head Exam Head Exam: ATRAUMATIC, NORMAL INSPECTION, NORMOCEPHALIC - Eye Exam Eye Exam: EOMI, Normal appearance - ENT Exam ENT Exam: Mucous Membranes Moist, Normal Exam - Neck Exam Neck Exam: Full ROM, Normal Inspection - Respiratory Exam Respiratory Exam: NORMAL BREATHING PATTERN - Cardiovascular Exam Cardiovascular Exam: REGULAR RHYTHM, +S1, +S2 - GI/Abdominal Exam GI & Abdominal Exam: Soft, Tenderness (over surgical incision sites). absent: Distended (obese), Firm, Guarding, Hernia Additional comments: Drain in place in LLQ, ~30cc serous output. Dressing wet with serous strike through- dressing replaced. Dressing over midline incision in place with scant serous strike through at distal aspect. - Extremities Exam Extremities Exam: Normal Inspection. absent: Pedal Edema - Neurological Exam Neurological Exam: Alert, Awake, CN II-XII Intact, Oriented x3 - Psychiatric Exam Psychiatric exam: Normal Affect, Normal Mood - Skin Skin Exam: Dry, Intact, Normal Color, Warm Assessment and Plan - Assessment and Plan (Free Text) Assessment: 52F POD#4 s/p robotic sigmoid colectomy Plan: OnQ ball changed with new medication/pain mgmt- set at 6 Drain dressing replaced Advance diet for dinner OOBTC Ambulate PT ordered Further mgmt as per ID DW attending Yaneth, PGY1 surgery pager: [phone]
[2017-06-30] MEDS: Meropenem IV 1 gm in NS 50 ML IVPB SCH ×2 (14:21→21:33)
--- NOTE | 2017-06-30 14:54 | CP.PCM.CON ---
History of Present Illness - History of Present Illness History of Present Illness: 52yF with pmhx of recurrent diverticulitis, HTN, DM, hypothyroidism presents to the ED with worsening abdominal pain. Pt was on po abx Cipro & Flagyl for diverticulitis. s/p robotic hemicolectomy ROS: A 12pt ROS negative except as above PMHx: As stated in HPI PSHx: lap nathalie, lap appy, hysterectomy SHx: denies etoh, smoking, or illicit drug use FHx: denies colon cancer Review of Systems - Review of Systems All systems: reviewed and no additional remarkable complaints except - Constitutional Constitutional: As Per HPI - EENT Eyes: absent: As Per HPI, Blind Spots, Blurred Vision, Change in Vision, Decreased Night Vision, Diplopia, Discharge, Dry Eye, Exophthalmos, Floaters, Irritation, Itchy Eyes, Loss of Peripheral Vision, Pain, Photophobia, Requires Corrective Lenses, Sees Flashes, Spots in Vision, Tunnel Vision, Other Visual Disturbances, Loss of Vision, Other Ears: absent: As Per HPI, Decreased Hearing, Ear Discharge, Ear Pain, Tinnitus, Abnormal Hearing, Disequilibrium, Dizziness, Other Nose/Mouth/Throat: absent: As Per HPI, Epistaxis, Nasal Congestion, Nasal Discharge, Nasal Obstruction, Nasal Trauma, Nose Pain, Post Nasal Drip, Sinus Pain, Sinus Pressure, Bleeding Gums, Change in Voice, Dental Pain, Dry Mouth, Dysphagia, Halitosis, Hoarsness, Lip Swelling, Mouth Lesions, Mouth Pain, Odynophagia, Sore Throat, Throat Swelling, Tongue Swelling, Facial Pain, Neck Pain, Neck Mass, Other - Breasts Breasts: absent: As Per HPI, Change in Shape, Mass, Pain, Nipple Discharge, Nipple Inversion, Skin Changes, Swelling, Other - Cardiovascular Cardiovascular: absent: As Per HPI, Acrocyanosis, Chest Pain, Chest Pain at Rest , Claudication, Diaphoresis, Dyspnea, Dyspnea on Exertion, Edema, Irregular Heart Rhythm, Pain Radiating to Arm/Neck/Jaw, Leg Edema, Leg Ulcers, Lightheadedness, Orthopnea, Palpitations, Paroxysmal Nocturnal Dyspnea, Pedal Edema, Radiating Pain, Rapid Heart Rate, Slow Heart Rate, Syncope, Other - Respiratory Respiratory: absent: As Per HPI, Cough, Dyspnea, Hemoptysis, Dyspnea on Exertion , Wheezing, Snoring, Stridor, Pain on Inspiration, Chest Congestion, Excessive Mucous Production, Change in Mucous Color, Pain with Coughing, Other - Gastrointestinal Gastrointestinal: As Per HPI - Genitourinary Genitourinary: absent: As Per HPI, Change in Urinary Stream, Difficulty Urinating, Dysuria, Flank Pain, Hematuria, Pyuria, Nocturia, Urinary Incontinence, Urinary Frequency, Urinary Hesitance, Urinary Urgency, Voiding Freq/Small Amts, Freq UTI, Hx Renal/Bladder Calculi, Hx /Renal Surgery, Bladder Distension, Other - Reproductive: Female Reproductive:Female: absent: As Per HPI, Amenorrhea, Amenorrhea/ Control, Currently Menstual, Cycle <21 Days, Cycle >35 Days, Cycle Variable, Menses 1-7 Days, Menses >/= 8 Days, Menses Variable, Cycle > 4 Weeks Between, No Menses for 6 Months, Heavy Menses, Light Menses, Normal Menses, Spotting Between Cycles , S/P Hysterectomy, Menopausal, Post Menopausal, Premenarche, Abnormal Vaginal Bleeding, Dysmenorrhea, Dyspareunia, Genital Lesions, Genital Pruritis, Pelvic Pain, Prolapse Symptoms, Sexual Dysfunction, Vaginal Discharge, Vaginal Dryness , Vaginal Odor, Vaginal Pruritis, Other - Menstruation Menstruation: absent: As Per HPI, Amenorrhea, Amenorrhea/ Control, Currently Menstual, Cycle <21 Days, Cycle >35 Days, Cycle Variable, Menses 1-7 Days, Menses >/= 8 Days, Menses Variable, Cycle > 4 Weeks Between, No Menses for 6 Months, Heavy Menses, Light Menses, Normal Menses, Spotting Between Cycles , S/P Hysterectomy, Menopausal, Post Menopausal, Premenarche, Abnormal Vaginal Bleeding, Dysmenorrhea, Other - Musculoskeletal Musculoskeletal: absent: As Per HPI, Abnormal Gait, Arthralgias, Atrophy, Back Pain, Deformity, Joint Swelling, Limited Range of Motion, Loss of Height, Muscle Cramps, Muscle Weakness, Myalgias, Neck Pain, Numbness, Radiating Pain into Limb, Stiffness, Tingling, Other - Integumentary Integumentary: absent: As Per HPI, Acne, Alopecia, Bleeding Lesions, Change in Hair, Change in Nails, Change in Pigmentation, Changing Lesions, Dry Skin, Erythema, Furuncle, Hirsutism, Lesions, New Lesions, Non-Healing Lesions, Photosensitivity, Pruritus, Rash, Skin Pain, Skin Ulcer, Sores, Striae, Swelling , Unusual Bruising, Wounds, Jaundice, Other - Neurological Neurological: absent: As Per HPI, Abnormal Gait, Abnormal Hearing, Abnormal Movements, Abnormal Speech, Behavioral Changes, Burning Sensations, Confusion, Convulsions, Disequilibrium, Dizziness, Numbness, Focal Weakness, Frequent Falls , Headaches, Lack of Coordination, Loss of Vision, Memory Loss, Paresthesias, Radicular Pain, Restless Legs, Sensory Deficit, Syncope, Tingling, Tremor, Vertigo, Weakness, Other Visual Disturbances, Other - Psychiatric Psychiatric: absent: As Per HPI, Abnormal Sleep Pattern, Anhedonia, Anxiety, Auditory Hallucinations, Behavioral Changes, Change in Appetite, Change in Libido, Confusion, Depression, Difficulty Concentrating, Hallucinations, Homicidal Ideation, Hopelessness, Irritability, Memory Loss, Mood Swings, Panic Attacks, Paranoia, Suicidal Ideation, Visual Hallucinations, Tactile Hallucinations, Other - Endocrine Endocrine: absent: As Per HPI, Change in Body Appearance, Change in Libido, Cold Intolorance, Deepening of Voice, Excessive Sweating, Fatigue, Flushing, Heat Intolorance, Increase in Ring/Shoe/Hat Size, Palpitations, Polydipsia, Polyphagia, Polyuria, Other - Hematologic/Lymphatic Hematologic: absent: As Per HPI, Easy Bleeding, Easy Bruising, Lymphadenopathy, Other Past Patient History - Past Medical History & Family History Past Medical History?: Yes - Past Social History Smoking Status: Never Smoked - CARDIAC Hx Hypertension: Yes - PULMONARY Hx Respiratory Disorders: No - NEUROLOGICAL Hx Neurological Disorder: Yes Hx Syncope: Yes - HEENT Hx HEENT Problems: No - RENAL Hx Chronic Kidney Disease: No - ENDOCRINE/METABOLIC Hx Diabetes Mellitus Type 2: Yes Hx Hypothyroidism: Yes - HEMATOLOGICAL/ONCOLOGICAL Hx Blood Disorders: No - INTEGUMENTARY Hx Dermatological Problems: No - MUSCULOSKELETAL/RHEUMATOLOGICAL Hx Falls: No - GASTROINTESTINAL Hx Gastrointestinal Disorders: Yes Hx Diverticulitis: Yes Hx Gastritis: Yes - GENITOURINARY/GYNECOLOGICAL Hx Genitourinary Disorders: No - PSYCHIATRIC Hx Substance Use: No - SURGICAL HISTORY Hx Surgeries: Yes Hx Appendectomy: Yes Hx Cholecystectomy: Yes Hx Hysterectomy: Yes - ANESTHESIA Hx Anesthesia: Yes Hx Anesthesia Reactions: No Hx Malignant Hyperthermia: No Has any member of the family had a problem w/ anesthesia?: No Meds Home Medications: Home Medication List Medication Instructions Recorded Confirmed Type Naproxen [Naprosyn] 1 tab PO BID PRN #20 tab 06/23/17 Rx oxyCODONE/Acetaminophen [Percocet 1 tab PO QID PRN #10 tab 06/23/17 Rx 5/325 mg Tab] Allergies/Adverse Reactions: Allergies Allergy/AdvReac Type Severity Reaction Status Date / Time tramadol Allergy Verified 06/23/17 16:07 - Medications Medications: Current Medications Atenolol (Tenormin) 50 mg PO DAILY [facility] Last Admin: 06/30/17 10:20 Dose: 50 mg Ciprofloxacin (Ciloxan 0.3% Ophth Soln) 1 drop OU Q4H [facility] Stop: 07/04/17 15:00 Last Admin: 06/30/17 14:20 Dose: 1 drop Diphenhydramine HCl (Benadryl) 25 mg IVP Q6 PRN PRN Reason: Itching / Pruritus Last Admin: 06/28/17 14:50 Dose: 25 mg Enoxaparin Sodium (Lovenox) 40 mg SC DAILY [facility] Last Admin: 06/30/17 10:18 Dose: 40 mg Hydrochlorothiazide (Microzide) 12.5 mg PO DAILY [facility] Last Admin: 06/30/17 10:18 Dose: 12.5 mg Hydromorphone HCl (Dilaudid) 0.5 mg IVP Q3 PRN PRN Reason: breakthrough pain Last Admin: 06/29/17 19:58 Dose: 0.5 mg Hydromorphone HCl (Dilaudid) 1 mg IVP Q3H PRN PRN Reason: Pain, severe (8-10) Last Admin: 06/28/17 21:18 Dose: 1 mg BUPIVACAINE 0.125%/0.9% NACL (Bupivacaine-Ns 0.125% On-Q Ethylbenzene Cracking Supervisor) 600 mls @ 4 mls/ hr IJ ONCE ONE Stop: 07/06/17 14:29 Meropenem (Merrem Iv 1 Gm Premix) 50 mls @ 100 mls/hr IVPB Q8 [facility] Last Admin: 06/30/17 14:21 Dose: 100 mls/hr Levothyroxine Sodium (Synthroid) 50 mcg PO DAILY@0630 [facility] Last Admin: 06/30/17 05:46 Dose: 50 mcg Metformin HCl (Glucophage) 500 mg PO BID [facility] Last Admin: 06/30/17 10:18 Dose: 500 mg Naloxone HCl (Narcan) 0.1 mg IVP Q2M PRN PRN Reason: apnea Ondansetron HCl (Zofran Inj) 4 mg IVP Q4 PRN PRN Reason: Nausea/Vomiting Last Admin: 06/28/17 14:11 Dose: 4 mg Oxycodone/Acetaminophen (Percocet 5/325 Mg Tab) 1 tab PO Q4H PRN PRN Reason: Pain, moderate (4-7) Stop: 06/30/17 17:45 Last Admin: 06/29/17 01:59 Dose: 1 tab Pantoprazole Sodium (Protonix Inj) 40 mg IVP DAILY [facility] Last Admin: 06/30/17 10:18 Dose: 40 mg Physical Exam - Constitutional Appears: Non-toxic, Chronically Ill - Head Exam Head Exam: NORMOCEPHALIC - Eye Exam Eye Exam: PERRL. absent: Scleral icterus - ENT Exam ENT Exam: Mucous Membranes Dry, Normal External Ear Exam - Neck Exam Neck exam: Negative for: Lymphadenopathy, Thyromegaly - Respiratory Exam Respiratory Exam: Decreased Breath Sounds, Clear to Auscultation Bilateral - Cardiovascular Exam Cardiovascular Exam: REGULAR RHYTHM, +S1, +S2 - GI/Abdominal Exam GI & Abdominal Exam: Diminished Bowel Sounds, Distended, Guarding, Tenderness. absent: Rebound, Rigid - Rectal Exam Rectal Exam: Deferred - Exam Exam: NORMAL INSPECTION - Extremities Exam Extremities exam: Positive for: pedal pulses present. Negative for: calf tenderness, pedal edema, tenderness - Back Exam Back exam: absent: CVA tenderness (L), CVA tenderness (R), paraspinal tenderness - Neurological Exam Neurological exam: Alert, CN II-XII Intact, Oriented x3, Reflexes Normal - Psychiatric Exam Psychiatric exam: Depressed - Skin Skin Exam: Dry Results - Vital Signs Recent Vital Signs: Last Vital Signs Temp 98.3 F 06/30/17 08:00 Pulse 82 06/30/17 08:00 Resp 20 06/30/17 08:00 BP 168/91 H 06/30/17 08:00 Pulse Ox 99 06/30/17 08:00 - Labs Result Diagrams: 06/30/17 07:57 06/30/17 07:57 Labs: Laboratory Results - last 24 hr 06/29/17 06/29/17 06/30/17 16:28 21:17 07:33 WBC RBC Hgb Hct MCV MCH MCHC RDW Plt Count MPV Neut % (Auto) Lymph % (Auto) [place] % (Auto) Eos % (Auto) Baso % (Auto) Neut # Lymph # [place] # Eos # Baso # Sodium Potassium Chloride Carbon Dioxide Anion Gap BUN Creatinine Est GFR ( Amer) Est GFR (Non-Af Amer) POC Glucose (mg/dL) 143 H 168 H 136 H Random Glucose Calcium Total Bilirubin AST ALT Alkaline Phosphatase Total Protein Albumin Globulin Albumin/Globulin Ratio 06/30/17 06/30/17 06/30/17 07:57 07:57 12:18 WBC 10.0 RBC 3.63 L Hgb 11.4 Hct 33.2 L MCV 91.4 MCH 31.3 H MCHC 34.2 RDW 15.0 H Plt Count 496 H MPV 7.9 Neut % (Auto) 82.9 H Lymph % (Auto) 10.5 L [place] % (Auto) 5.5 Eos % (Auto) 0.9 Baso % (Auto) 0.2 Neut # 8.3 H Lymph # 1.0 [place] # 0.6 Eos # 0.1 Baso # 0.0 Sodium 136 Potassium 3.6 Chloride 99 Carbon Dioxide 32 H Anion Gap 9 L BUN 8 Creatinine 0.5 L Est GFR ( Amer) > 60 Est GFR (Non-Af Amer) > 60 POC Glucose (mg/dL) 160 H Random Glucose 145 H Calcium 7.6 L Total Bilirubin 0.5 AST 20 ALT 36 Alkaline Phosphatase 46 Total Protein 5.1 L Albumin 2.9 L Globulin 2.2 Albumin/Globulin Ratio 1.3 Assessment & Plan (1) Diverticulitis large intestine Status: Acute - Assessment and Plan (Free Text) Assessment: leukocytosis resolcving/ CT neg cont supportive rx
[2017-06-30] MEDS: HYDROmorphone 0.5 mg/0.5 ml ISec IVP PRN (16:45)
[2017-06-30] MEDS ORDERED: HYDROmorphone 0.5 mg/0.5 ml ISec IVP PRN (16:49)
--- NOTE | 2017-06-30 21:23 | CP.PCM.PN ---
Subjective - Date & Time of Evaluation Date of Evaluation: 06/29/17 Time of Evaluation: 07:40 - Subjective Subjective: patient seen and evaluated Deneis chest pain and dyspnea Objective - Vital Signs/Intake and Output Vital Signs (last 24 hours): Temp Pulse Resp BP Pulse Ox 98.4 F 79 20 147/84 97 06/30/17 15:05 06/30/17 15:05 06/30/17 15:05 06/30/17 15:05 06/30/17 15:05 Intake and Output: 06/30/17 07/01/17 18:59 06:59 Intake Total 1400 Output Total 100 Balance 1300 - Medications Medications: Current Medications Atenolol (Tenormin) 50 mg PO DAILY [facility] Last Admin: 06/30/17 10:20 Dose: 50 mg Ciprofloxacin (Ciloxan 0.3% Ophth Soln) 1 drop OU Q4H [facility] Stop: 07/04/17 15:00 Last Admin: 06/30/17 17:30 Dose: Not Given Diphenhydramine HCl (Benadryl) 25 mg IVP Q6 PRN PRN Reason: Itching / Pruritus Last Admin: 06/28/17 14:50 Dose: 25 mg Enoxaparin Sodium (Lovenox) 40 mg SC DAILY [facility] Last Admin: 06/30/17 10:18 Dose: 40 mg Hydrochlorothiazide (Microzide) 12.5 mg PO DAILY [facility] Last Admin: 06/30/17 10:18 Dose: 12.5 mg Hydromorphone HCl (Dilaudid) 0.5 mg IVP Q4H PRN PRN Reason: breakthrough pain BUPIVACAINE 0.125%/0.9% NACL (Bupivacaine-Ns 0.125% On-Q [employer] Executive) 600 mls @ 4 mls/ hr IJ ONCE ONE Stop: 07/06/17 14:29 Meropenem (Merrem Iv 1 Gm Premix) 50 mls @ 100 mls/hr IVPB Q8 [facility] Last Admin: 06/30/17 14:21 Dose: 100 mls/hr Levothyroxine Sodium (Synthroid) 50 mcg PO DAILY@0630 [facility] Last Admin: 06/30/17 05:46 Dose: 50 mcg Metformin HCl (Glucophage) 500 mg PO BID [facility] Last Admin: 06/30/17 17:30 Dose: 500 mg Morphine Sulfate (Morphine) 4 mg IVP Q6H PRN PRN Reason: Pain, severe (8-10) Naloxone HCl (Narcan) 0.1 mg IVP Q2M PRN PRN Reason: apnea Ondansetron HCl (Zofran Inj) 4 mg IVP Q4 PRN PRN Reason: Nausea/Vomiting Last Admin: 06/28/17 14:11 Dose: 4 mg Pantoprazole Sodium (Protonix Inj) 40 mg IVP DAILY [facility] Last Admin: 06/30/17 10:18 Dose: 40 mg - Labs Labs: 06/30/17 07:57 06/30/17 07:57 PT 11.8 SECONDS (9.7-12.2) 06/23/17 17:13 INR 1.1 06/23/17 17:13 APTT 26 SECONDS (21-34) 06/23/17 17:13
--- NOTE | 2017-06-30 21:24 | CP.PCM.PN ---
Subjective - Date & Time of Evaluation Date of Evaluation: 06/30/17 Time of Evaluation: 10:30 - Subjective Subjective: Patient seen and evaluated No cardiac events noted Objective - Vital Signs/Intake and Output Vital Signs (last 24 hours): Temp Pulse Resp BP Pulse Ox 98.4 F 79 20 147/84 97 06/30/17 15:05 06/30/17 15:05 06/30/17 15:05 06/30/17 15:05 06/30/17 15:05 Intake and Output: 06/30/17 07/01/17 18:59 06:59 Intake Total 1400 Output Total 100 Balance 1300 - Medications Medications: Current Medications Atenolol (Tenormin) 50 mg PO DAILY [facility] Last Admin: 06/30/17 10:20 Dose: 50 mg Ciprofloxacin (Ciloxan 0.3% Oph Soln) 1 drop OU Q4H [facility] Stop: 07/04/17 15:00 Last Admin: 06/30/17 17:30 Dose: Not Given Diphenhydramine HCl (Benadryl) 25 mg IVP Q6 PRN PRN Reason: Itching / Pruritus Last Admin: 06/28/17 14:50 Dose: 25 mg Enoxaparin Sodium (Lovenox) 40 mg SC DAILY [facility] Last Admin: 06/30/17 10:18 Dose: 40 mg Hydrochlorothiazide (Microzide) 12.5 mg PO DAILY [facility] Last Admin: 06/30/17 10:18 Dose: 12.5 mg Hydromorphone HCl (Dilaudid) 0.5 mg IVP Q4H PRN PRN Reason: breakthrough pain BUPIVACAINE 0.125%/0.9% NACL (Bupivacaine-Ns 0.125% On-Q Fire[employer]ighter [employer]) 600 mls @ 4 mls/ hr IJ ONCE ONE Stop: 07/06/17 14:29 Meropenem (Merrem Iv 1 Gm Premix) 50 mls @ 100 mls/hr IVPB Q8 [facility] Last Admin: 06/30/17 14:21 Dose: 100 mls/hr Levothyroxine Sodium (Synthroid) 50 mcg PO DAILY@0630 [facility] Last Admin: 06/30/17 05:46 Dose: 50 mcg Metformin HCl (Glucophage) 500 mg PO BID [facility] Last Admin: 06/30/17 17:30 Dose: 500 mg Morphine Sulfate (Morphine) 4 mg IVP Q6H PRN PRN Reason: Pain, severe (8-10) Naloxone HCl (Narcan) 0.1 mg IVP Q2M PRN PRN Reason: apnea Ondansetron HCl (Zofran Inj) 4 mg IVP Q4 PRN PRN Reason: Nausea/Vomiting Last Admin: 06/28/17 14:11 Dose: 4 mg Pantoprazole Sodium (Protonix Inj) 40 mg IVP DAILY [facility] Last Admin: 06/30/17 10:18 Dose: 40 mg - Labs Labs: 06/30/17 07:57 06/30/17 07:57 PT 11.8 SECONDS (9.7-12.2) 06/23/17 17:13 INR 1.1 06/23/17 17:13 APTT 26 SECONDS (21-34) 06/23/17 17:13
[2017-06-30] MEDS ORDERED: Lactated Ringer's 1,000 ML IV SCH (23:00)
[2017-07-01] MEDS: Ciprofloxacin 0.3% OPTH SOLN OU SCH ×4 (00:31→13:11)
[2017-07-01] MEDS: Dextrose 5%/0.45% NS 1,000 ML IV SCH ×2 (00:33→09:34)
[2017-07-01] MEDS: Levothyroxine 50 MCG TAB PO SCH (05:55)
[2017-07-01] MEDS: Meropenem IV 1 gm in NS 50 ML IVPB SCH ×2 (05:56→13:32)
[2017-07-01 07:06] LABS: BASO % 0.2 % (0.0-2.0); EOS # 0.2 K/uL (0.0-0.7); EOS % 2.5 % (0.0-4.0); HEMATOCRIT 29.1 % (34.0-47.0); LYMPH # 1.8 K/uL (1.0-4.3); LYMPH % 19.3 % (20.0-40.0); MEAN CELL VOLUME 90.8 fL (81.0-99.0); MEAN CORPUSCULAR HEMOGLOBIN 31.2 pg (27.0-31.0); MEAN CORPUSCULAR HGB CONC 34.3 g/dL (33.0-37.0); MEAN PLATELET VOLUME 7.3 fL (7.2-11.7); MONO # 0.8 K/uL (0.0-0.8); MONO % 8.1 % (0.0-10.0); RED CELL DISTRIBUTION WIDTH 14.7 % (11.5-14.5); WHITE BLOOD COUNT 9.5 K/uL (4.8-10.8)
--- NOTE | 2017-07-01 07:30 | CP.PCM.PN ---
Subjective - Date & Time of Evaluation Date of Evaluation: 07/01/17 Time of Evaluation: 06:00 - Subjective Subjective: Surgery Progress note. Dr. Xavier Pt seen and examined at bedside. No acute events overnight. Does report flatus and BM, described as loose. No F/C. No N/V. Ambulating within room. Pain well tolerated. No new complaints. Objective - Vital Signs/Intake and Output Vital Signs (last 24 hours): Temp Pulse Resp BP Pulse Ox 98.4 F 79 20 147/84 97 06/30/17 15:05 06/30/17 15:05 06/30/17 15:05 06/30/17 15:05 06/30/17 15:05 Intake and Output: 07/01/17 07/01/17 06:59 18:59 Output Total 120 Balance -120 - Medications Medications: Current Medications Atenolol (Tenormin) 50 mg PO DAILY [facility] Last Admin: 06/30/17 10:20 Dose: 50 mg Ciprofloxacin (Ciloxan 0.3% Oph Soln) 1 drop OU Q4H [facility] Stop: 07/04/17 15:00 Last Admin: 07/01/17 05:55 Dose: 1 drop Diphenhydramine HCl (Benadryl) 25 mg IVP Q6 PRN PRN Reason: Itching / Pruritus Last Admin: 06/28/17 14:50 Dose: 25 mg Enoxaparin Sodium (Lovenox) 40 mg SC DAILY [facility] Last Admin: 06/30/17 10:18 Dose: 40 mg Hydrochlorothiazide (Microzide) 12.5 mg PO DAILY [facility] Last Admin: 06/30/17 10:18 Dose: 12.5 mg Hydromorphone HCl (Dilaudid) 0.5 mg IVP Q4H PRN PRN Reason: breakthrough pain BUPIVACAINE 0.125%/0.9% NACL (Bupivacaine-Ns 0.125% On-Q Manager Deli) 600 mls @ 4 mls/ hr IJ ONCE ONE Stop: 07/06/17 14:29 Meropenem (Merrem Iv 1 Gm Premix) 50 mls @ 100 mls/hr IVPB Q8 [facility] Last Admin: 07/01/17 05:56 Dose: 100 mls/hr Dextrose/Sodium Chloride (Dextrose 5%/0.45% Ns 1000 Ml) 1,000 mls @ 100 mls/hr IV .Q10H [facility] Last Admin: 07/01/17 00:33 Dose: Not Given Levothyroxine Sodium (Synthroid) 50 mcg PO DAILY@0630 [facility] Last Admin: 07/01/17 05:55 Dose: 50 mcg Metformin HCl (Glucophage) 500 mg PO BID [facility] Last Admin: 06/30/17 17:30 Dose: 500 mg Morphine Sulfate (Morphine) 4 mg IVP Q6H PRN PRN Reason: Pain, severe (8-10) Last Admin: 07/01/17 00:23 Dose: 4 mg Naloxone HCl (Narcan) 0.1 mg IVP Q2M PRN PRN Reason: apnea Ondansetron HCl (Zofran Inj) 4 mg IVP Q4 PRN PRN Reason: Nausea/Vomiting Last Admin: 06/28/17 14:11 Dose: 4 mg Pantoprazole Sodium (Protonix Inj) 40 mg IVP DAILY [facility] Last Admin: 06/30/17 10:18 Dose: 40 mg - Labs Labs: 07/01/17 06:47 06/30/17 07:57 PT 11.8 SECONDS (9.7-12.2) 06/23/17 17:13 INR 1.1 06/23/17 17:13 APTT 26 SECONDS (21-34) 06/23/17 17:13 - Constitutional Appears: Non-toxic, No Acute Distress - Head Exam Head Exam: ATRAUMATIC, NORMAL INSPECTION, NORMOCEPHALIC - Eye Exam Eye Exam: EOMI - ENT Exam ENT Exam: Mucous Membranes Moist - Respiratory Exam Respiratory Exam: NORMAL BREATHING PATTERN. absent: Accessory Muscle Use, Respiratory Distress - Cardiovascular Exam Cardiovascular Exam: absent: JVD - GI/Abdominal Exam GI & Abdominal Exam: Soft. absent: Distended, Firm, Guarding, Rigid Additional comments: Mild tenderness to palpation. Incisions clean, dry and intact. Dressings removed. Skin intact with moo, skin edges well approximated. Drain dressing replaced. - Extremities Exam Extremities Exam: Normal Inspection. absent: Calf Tenderness - Neurological Exam Neurological Exam: Alert, Awake, Oriented x3 - Skin Skin Exam: Dry, Intact, Normal Color, Warm Assessment and Plan - Assessment and Plan (Free Text) Assessment: 52yo F POD5 s/p robotic sigmoid colectomy - Continue OnQ, running at 6cc/hr - Pain management: Percocet script on Chart - Continue dietary supplements. ADAT - Remove Hans drain - Cleared for D/C from surgical standpoint. Follow up with Dr. Xavier in Clinic on , 07/04 - No heavy lifting (>10 lbs) for 4-6 weeks Further Recs as per Dr. Morenita Peña PGY1 surgery pager: [phone]
[2017-07-01 07:45] LABS: ALKALINE PHOSPHATASE 38 U/L (38-126); ALT/SGPT 36 U/L (9-52); AST/SGOT 20 U/L (14-36); BILIRUBIN,TOTAL 0.4 mg/dL (0.2-1.3); BLOOD UREA NITROGEN 8 mg/dL (7-17); CALCIUM 7.7 mg/dl (8.6-10.4); CARBON DIOXIDE 35 mmol/L (22-30); CHLORIDE 97 mmol/L (98-107); GFR AFRICAN-AMERICAN > 60; GLUCOSE,RANDOM 123 mg/dL (65-105); POTASSIUM 3.5 mmol/L (3.6-5.2); SODIUM 132 mmol/L (132-148); TOTAL PROTEIN 4.6 g/dL (6.3-8.3)
[2017-07-01 07:50] LABS: ALB/GLOB RATIO 1.3 (1.0-2.1)
[2017-07-01] MEDS: Enoxaparin 40 mg Syringe SC SCH (09:36)
[2017-07-01] MEDS ORDERED: Potassium Chloride 20 mEq/15 ml LIQ UD PO STA (09:56)
--- NOTE | 2017-07-01 10:31 | CP.PCM.PN ---
Subjective - Date & Time of Evaluation Date of Evaluation: 07/01/17 Time of Evaluation: 10:27 - Subjective Subjective: This is POD 5 for this patient; s/p sigmoidectomy. She is tolerating a FLD that has been under the guidance of surgery. She has had loose bowel movements; 4x yesterday. This morning she states that she is feeling better. She denies any acute complaints- f/c/n/v/cp/sob. She is being followed by the surgical team who evaluated her earlier today and she reports that they stated they would gradually increase the viscosity of her diet. Objective - Vital Signs/Intake and Output Vital Signs (last 24 hours): Temp Pulse Resp BP Pulse Ox 98.4 F 74 20 142/81 99 07/01/17 07:43 07/01/17 07:43 07/01/17 07:43 07/01/17 07:43 07/01/17 07:43 Intake and Output: 07/01/17 07/01/17 06:59 18:59 Output Total 120 Balance -120 - Medications Medications: Current Medications Atenolol (Tenormin) 50 mg PO DAILY [facility] Last Admin: 07/01/17 09:27 Dose: 50 mg Ciprofloxacin (Ciloxan 0.3% Ophth Soln) 1 drop OU Q4H [facility] Stop: 07/04/17 15:00 Last Admin: 07/01/17 09:26 Dose: 1 drop Diphenhydramine HCl (Benadryl) 25 mg IVP Q6 PRN PRN Reason: Itching / Pruritus Last Admin: 06/28/17 14:50 Dose: 25 mg Enoxaparin Sodium (Lovenox) 40 mg SC DAILY [facility] Last Admin: 07/01/17 09:36 Dose: 40 mg Hydrochlorothiazide (Microzide) 12.5 mg PO DAILY [facility] Last Admin: 07/01/17 09:27 Dose: 12.5 mg Hydromorphone HCl (Dilaudid) 0.5 mg IVP Q4H PRN PRN Reason: breakthrough pain BUPIVACAINE 0.125%/0.9% NACL (Bupivacaine-Ns 0.125% On-Q Career Services Representative) 600 mls @ 4 mls/ hr IJ ONCE ONE Stop: 07/06/17 14:29 Meropenem (Merrem Iv 1 Gm Premix) 50 mls @ 100 mls/hr IVPB Q8 [facility] Last Admin: 07/01/17 05:56 Dose: 100 mls/hr Dextrose/Sodium Chloride (Dextrose 5%/0.45% Ns 1000 Ml) 1,000 mls @ 100 mls/hr IV .Q10H [facility] Last Admin: 07/01/17 09:34 Dose: 100 mls/hr Levothyroxine Sodium (Synthroid) 50 mcg PO DAILY@0630 [facility] Last Admin: 07/01/17 05:55 Dose: 50 mcg Metformin HCl (Glucophage) 500 mg PO BID [facility] Last Admin: 07/01/17 09:28 Dose: 500 mg Morphine Sulfate (Morphine) 4 mg IVP Q6H PRN PRN Reason: Pain, severe (8-10) Last Admin: 07/01/17 00:23 Dose: 4 mg Naloxone HCl (Narcan) 0.1 mg IVP Q2M PRN PRN Reason: apnea Ondansetron HCl (Zofran Inj) 4 mg IVP Q4 PRN PRN Reason: Nausea/Vomiting Last Admin: 06/28/17 14:11 Dose: 4 mg Pantoprazole Sodium (Protonix Inj) 40 mg IVP DAILY [facility] Last Admin: 07/01/17 09:28 Dose: 40 mg - Labs Labs: 07/01/17 06:47 07/01/17 06:47 PT 11.8 SECONDS (9.7-12.2) 06/23/17 17:13 INR 1.1 06/23/17 17:13 APTT 26 SECONDS (21-34) 06/23/17 17:13 - Constitutional Appears: No Acute Distress - Head Exam Head Exam: ATRAUMATIC, NORMAL INSPECTION - Eye Exam Eye Exam: EOMI Additional comments: mild erythema L eye - ENT Exam ENT Exam: Mucous Membranes Moist - Respiratory Exam Respiratory Exam: Clear to Ausculation Bilateral, NORMAL BREATHING PATTERN - Cardiovascular Exam Cardiovascular Exam: REGULAR RHYTHM, +S1, +S2 - GI/Abdominal Exam GI & Abdominal Exam: Soft, Tenderness (appropriately tender is setting of recent surgery) Additional comments: surgical wounds are C/D/I serosanguinous drain output - Extremities Exam Extremities Exam: Normal Inspection. absent: Calf Tenderness - Neurological Exam Neurological Exam: Alert, Awake, Oriented x3 - Psychiatric Exam Psychiatric exam: Normal Affect, Normal Mood - Skin Skin Exam: Dry, Intact, Warm Assessment and Plan - Assessment and Plan (Free Text) Plan: Acute Diverticulitis s/p sigmoid colectomy Three previous episodes of diverticulitis Afebrile, WBC WNL s/p sigmoid colectomy on 06/26/17 CT A/P (06/23/17): numerous left colonic and sigmoid diverticuli, w/o acute inflammation Taking Cipro/Flagyl as OPDX (Total of 9 days before coming to hospital) Dr. Schwab, GI merchandising consultant -EGD/Colonoscopy as OPDX (06/04/17): Gastritis/Diverticulosis in entire colon Dr. Xavier, Gen surgery Evaluated by Dr. Mccullough- no acute interventions- continue supportive therapy- recommendations appreciated Meropenem 1g q8hrs Zofran 4mg IV q4H PRN Toradol 30mg IV Q6H PRN, mild pain Dilaudid 0.5mg IV Q4H PRN, moderate pain LR @ 125cc/hr -advance diet as per surgery -NGT out 06/27 -PT/OT Out of bed to chair; encourage activity -incentive spirometry Conjunctivitis improving Cipro 0.3% opth solution HTN;chronic Well-controlled Microzide 12.5mg PO daily Atenolol 50mg PO Daily T2DM;chronic Accuchecks Hypoglycemia protocol Metformin 500mg PO BID -A1C 7.2 -Lipid panel: LDL 52, HDL 48, T chol 121, Tri 72 Hypothyroidism;chronic Synthroid 50 mcg PO QAM - TSH/Free T4 WNL Hematuria UA: 1+ blood, RBC 5 Asymtomatic follow up repeat UA Prophylaxis SCDs Lovenox 40mg SC daily (HOLD, will restart when okayed by surgery) Protonix 40mg IV Daily Dispo: Pending surgical sign off s/p colectomy -advance diet as per surgery -PT/OT -Out of bed to chair, and walking if can tolerate with assistance This patient was evaluated by the surgical team and has been cleared for discharge. She will be following up with surgery this at her follow up appointment. She will be following up with Dr. En Patel within 1-2 weeks. Case discussed with All management per
--- NOTE | 2017-07-01 13:52 | CP.PCM.PCO ---
Physician Communication Note - Physician Communication Note Physician Communication Note: pt is clear for d/c from surgery - all drains/OnQ removed
--- NOTE | 2017-07-01 15:15 | CP.PCM.PN ---
Subjective - Date & Time of Evaluation Date of Evaluation: 07/01/17 Time of Evaluation: 15:12 - Subjective Subjective: PT SEEN AND EVAL'D BY DR. En VARELA AND HOSPITAL PERSONNEL DIRECTOR, WELL DR. DESAI AND SURGICAL RESIDENTS. SEWING MACHINE ATTACHMENT TESTER DISCUSSED D/C PLAN WITH DR. DESAI AND HE IS CLEARING THE PT FOR D/C HOME TODAY WITH OFFICE F/U ON SATURDAY. RACHELE DRAIN REMOVED BY SURGICAL TEAM AND PT TOLERATED WELL. SEWING MACHINE ATTACHMENT TESTER ALSO DISCUSSED WITH DR. HALE AND HE CLEARED PT FOR D/C HOME WITH PO FLAGYL AND CIPRO. I SENT THE RX TO PT'S PHARMACY. DR. DESAI LEFT RX FOR PERCOCET. SEWING MACHINE ATTACHMENT TESTER DISCUSSED ALL D/ C INFORMATION, F/U AND RX WITH THE PT AND FAMILY AT BEDSIDE AND SHE VERBALIZES UNDERSTANDING. NO FURTHER ORDERS. Objective - Vital Signs/Intake and Output Vital Signs (last 24 hours): Temp Pulse Resp BP Pulse Ox 98.4 F 74 20 142/81 99 07/01/17 07:43 07/01/17 07:43 07/01/17 07:43 07/01/17 07:43 07/01/17 07:43 Intake and Output: 07/01/17 07/01/17 06:59 18:59 Output Total 120 Balance -120 - Medications Medications: Current Medications Atenolol (Tenormin) 50 mg PO DAILY [facility] Last Admin: 07/01/17 09:27 Dose: 50 mg Ciprofloxacin (Ciloxan 0.3% Ophth Soln) 1 drop OU Q4H [facility] Stop: 07/04/17 15:00 Last Admin: 07/01/17 13:11 Dose: 1 drop Diphenhydramine HCl (Benadryl) 25 mg IVP Q6 PRN PRN Reason: Itching / Pruritus Last Admin: 06/28/17 14:50 Dose: 25 mg Enoxaparin Sodium (Lovenox) 40 mg SC DAILY [facility] Last Admin: 07/01/17 09:36 Dose: 40 mg Hydrochlorothiazide (Microzide) 12.5 mg PO DAILY [facility] Last Admin: 07/01/17 09:27 Dose: 12.5 mg Hydromorphone HCl (Dilaudid) 0.5 mg IVP Q4H PRN PRN Reason: breakthrough pain BUPIVACAINE 0.125%/0.9% NACL (Bupivacaine-Ns 0.125% On-Q [employer]) 600 mls @ 4 mls/ hr IJ ONCE ONE Stop: 07/06/17 14:29 Meropenem (Merrem Iv 1 Gm Premix) 50 mls @ 100 mls/hr IVPB Q8 [facility] Last Admin: 07/01/17 13:32 Dose: 100 mls/hr Dextrose/Sodium Chloride (Dextrose 5%/0.45% Ns 1000 Ml) 1,000 mls @ 100 mls/hr IV .Q10H [facility] Last Admin: 07/01/17 09:34 Dose: 100 mls/hr Levothyroxine Sodium (Synthroid) 50 mcg PO DAILY@0630 [facility] Last Admin: 07/01/17 05:55 Dose: 50 mcg Metformin HCl (Glucophage) 500 mg PO BID [facility] Last Admin: 07/01/17 09:28 Dose: 500 mg Morphine Sulfate (Morphine) 4 mg IVP Q6H PRN PRN Reason: Pain, severe (8-10) Last Admin: 07/01/17 00:23 Dose: 4 mg Naloxone HCl (Narcan) 0.1 mg IVP Q2M PRN PRN Reason: apnea Ondansetron HCl (Zofran Inj) 4 mg IVP Q4 PRN PRN Reason: Nausea/Vomiting Last Admin: 06/28/17 14:11 Dose: 4 mg Pantoprazole Sodium (Protonix Inj) 40 mg IVP DAILY [facility] Last Admin: 07/01/17 09:28 Dose: 40 mg - Labs Labs: 07/01/17 06:47 07/01/17 06:47 PT 11.8 SECONDS (9.7-12.2) 06/23/17 17:13 INR 1.1 06/23/17 17:13 APTT 26 SECONDS (21-34) 06/23/17 17:13
[2017-07-01 15:48] VITALS: BP 148/80; PULSE 70; TEMP 98; O2SAT 93
[2017-07-01 20:57] LABS: RBC URINE 7 /hpf (0-3); TRANSITIONAL EPITHIAL 2 /hpf (0-3); URINE BACTERIA RARE (<OCC); URINE BILIRUBIN NEGATIVE (NEGATIVE); URINE BLOOD 1+ (NEGATIVE); URINE COLOR Straw (YELLOW); URINE GLUCOSE (UA) 2+ mg/dL (Normal); URINE HYALINE CAST 0-2 /lpf (0-2); URINE KETONE 1+ mg/dL (NEGATIVE); URINE PROTEIN NEGATIVE (NEGATIVE); URINE UROBILINOGEN NORMAL mg/dL (0.2-1.0); WBC URINE 7 /hpf (0-5)
[2017-07-01 20:58] LABS: URINE LEUKOCYTE ESTERASE 1+ Leu/uL (Negative)
--- NOTE | 2017-07-01 22:24 | CARD ---
APPROVED REPORT EKG Measurement Heart [id number] MD [id number] <Conclusion> Normal sinus rhythm
--- NOTE | 2017-07-01 22:29 | CP.PCM.PN ---
Subjective - Date & Time of Evaluation Date of Evaluation: 07/01/17 Time of Evaluation: 10:05 - Subjective Subjective: Patient seen and evaluated Denies chest pain and dyspnea For possible discharge today Objective - Vital Signs/Intake and Output Vital Signs (last 24 hours): Temp Pulse Resp BP Pulse Ox 98 F 70 20 148/80 93 L 07/01/17 15:43 07/01/17 15:43 07/01/17 15:43 07/01/17 15:43 07/01/17 15:43 - Labs Labs: 07/01/17 06:47 07/01/17 06:47 PT 11.8 SECONDS (9.7-12.2) 06/23/17 17:13 INR 1.1 06/23/17 17:13 APTT 26 SECONDS (21-34) 06/23/17 17:13
== END 2017-07-01 18:45 | disposition home or self-care (01) | DRG 331 ==
LOC: C.ER 16:05 → C.9E 21:52 → C.3T 23:05 → OBSVTOIN 06-24 14:45 → C.6T 06-26 16:10
PROVIDERS: ADMIT Internal Medicine Nephrology; ATTEND Internal Medicine Nephrology
PROC: 0DTN0ZZ Resection of Sigmoid Colon, Open Approach (ICD-10-PCS; principal; 2017-06-24)
PROC: 0DNW4ZZ Release Peritoneum, Percutaneous Endoscopic Approach (ICD-10-PCS; 2017-06-24)
PROC: 0JH83VZ Insertion of Infusion Pump into Abdomen Subcutaneous Tissue and Fascia, Percutaneous Approach (ICD-10-PCS; 2017-06-24)
PROC: 0JHT3VZ Insertion of Infusion Pump into Trunk Subcutaneous Tissue and Fascia, Percutaneous Approach (ICD-10-PCS; 2017-06-24)
PROC: 0D1N0ZP Bypass Sigmoid Colon to Rectum, Open Approach (ICD-10-PCS; 2017-06-24)
PROC: 8E0W4CZ Robotic Assisted Procedure of Trunk Region, Percutaneous Endoscopic Approach (ICD-10-PCS; 2017-06-24)
DX: K57.32 Diverticulitis of large intestine without perforation or abscess without bleeding (principal); E66.01 Morbid (severe) obesity due to excess calories; I10 Essential (primary) hypertension; K29.70 Gastritis, unspecified, without bleeding; E11.9 Type 2 diabetes mellitus without complications; E03.9 Hypothyroidism, unspecified; K66.0 Peritoneal adhesions (postprocedural) (postinfection); R31.29 Other microscopic hematuria; Z53.31 Laparoscopic surgical procedure converted to open procedure; Z79.84 Long term (current) use of oral hypoglycemic drugs; Z90.49 Acquired absence of other specified parts of digestive tract; Z90.710 Acquired absence of both cervix and uterus